=== PATIENT | female | born 1985 | race Caucasian/White ===

== ENCOUNTER 2019-09-06 13:56 | Observation (INO) | payer MEDICAID, SELFPAY | END 2019-09-07 09:50 | disposition left against medical advice (07) | PROVIDERS: Admitting Provider Obstetrics & Gynecology; Emergency Provider Family Medicine; Family Provider Nurse Practitioner; Visit Provider Obstetrics & Gynecology | DX: O20.0 Threatened abortion (principal); Z3A.13 13 weeks gestation of pregnancy; Z53.29 Procedure and treatment not carried out because of patient's decision for other reasons ==

== ENCOUNTER → 2019-09-13 09:51 | Outpatient (BNVA) | payer MEDICAID, SELFPAY | PROVIDERS: Family Provider Nurse Practitioner; PCP Nurse Practitioner; Visit Provider Social Worker Clinical | DX: F31.81 Bipolar II disorder (principal) | CPT/HCPCS: 90834; 90839 ==

== ENCOUNTER → 2019-09-23 09:17 | Outpatient (BNVA) | payer MEDICAID, SELFPAY | PROVIDERS: Family Provider Nurse Practitioner; PCP Nurse Practitioner; Visit Provider Nurse Practitioner Psychiatric/Mental Health | DX: F31.81 Bipolar II disorder (principal); F41.0 Panic disorder [episodic paroxysmal anxiety]; F17.210 Nicotine dependence, cigarettes, uncomplicated | CPT/HCPCS: 99214; 99215 ==

== ENCOUNTER → 2019-09-26 11:38 | Outpatient (BNVA) | payer MEDICAID, SELFPAY | PROVIDERS: Family Provider Nurse Practitioner; PCP Nurse Practitioner; Visit Provider Obstetrics & Gynecology | DX: O09.892 Supervision of other high risk pregnancies, second trimester (principal) | CPT/HCPCS: 81003; 84315 ==

== ENCOUNTER → 2019-10-25 08:40 | Outpatient (BNVA) | payer MEDICAID, SELFPAY | PROVIDERS: Family Provider Nurse Practitioner; PCP Nurse Practitioner; Visit Provider Obstetrics & Gynecology | DX: O09.892 Supervision of other high risk pregnancies, second trimester (principal); O21.9 Vomiting of pregnancy, unspecified; Z3A.21 21 weeks gestation of pregnancy | CPT/HCPCS: 76805 ==

== ENCOUNTER → 2019-10-28 09:37 | Outpatient (BNVA) | payer MEDICAID, SELFPAY | PROVIDERS: Family Provider Nurse Practitioner; PCP Nurse Practitioner; Visit Provider Obstetrics & Gynecology | DX: O09.892 Supervision of other high risk pregnancies, second trimester (principal); O21.9 Vomiting of pregnancy, unspecified; Z3A.21 21 weeks gestation of pregnancy | CPT/HCPCS: 81003 ==

== ENCOUNTER → 2019-11-05 10:23 | Outpatient (BNVA) | payer MEDICAID, SELFPAY | PROVIDERS: Family Provider Nurse Practitioner; PCP Nurse Practitioner; Visit Provider Internal Medicine Rheumatology | DX: L40.50 Arthropathic psoriasis, unspecified (principal); L40.0 Psoriasis vulgaris; Z3A.00 Weeks of gestation of pregnancy not specified; D72.829 Elevated white blood cell count, unspecified; F17.210 Nicotine dependence, cigarettes, uncomplicated | CPT/HCPCS: 99213 ==

== ENCOUNTER → 2019-11-15 08:00 | Outpatient (BNVA) | payer MEDICAID, SELFPAY | PROVIDERS: Family Provider Nurse Practitioner; PCP Nurse Practitioner; Visit Provider Counselor Professional | DX: F31.81 Bipolar II disorder (principal); F41.0 Panic disorder [episodic paroxysmal anxiety]; F17.210 Nicotine dependence, cigarettes, uncomplicated; O99.332 Smoking (tobacco) complicating pregnancy, second trimester; O99.342 Other mental disorders complicating pregnancy, second trimester | CPT/HCPCS: 90834 ==

== ENCOUNTER → 2019-11-19 13:06 | Outpatient (BNVA) | payer MEDICAID, SELFPAY | PROVIDERS: Family Provider Nurse Practitioner; PCP Nurse Practitioner; Visit Provider Obstetrics & Gynecology | DX: Z36.89 Encounter for other specified antenatal screening (principal); Z3A.23 23 weeks gestation of pregnancy; O32.1XX0 Maternal care for breech presentation, not applicable or unspecified | CPT/HCPCS: 76816 ==

== ENCOUNTER → 2019-11-22 13:49 | Outpatient (BNVA) | payer MEDICAID, SELFPAY | PROVIDERS: Family Provider Nurse Practitioner; PCP Nurse Practitioner; Visit Provider Obstetrics & Gynecology | DX: Z01.89 Encounter for other specified special examinations (principal) | CPT/HCPCS: 84315 ==

== ENCOUNTER → 2019-12-19 14:29 | Outpatient (BNVA) | payer MEDICAID, SELFPAY | PROVIDERS: Family Provider Nurse Practitioner; PCP Nurse Practitioner; Visit Provider Obstetrics & Gynecology Female Pelvic Medicine and Reconstructive Surgery | DX: Z01.89 Encounter for other specified special examinations (principal) | CPT/HCPCS: 84315 ==

== ENCOUNTER → 2020-01-13 07:32 | Outpatient (BNVA) | payer MEDICAID, SELFPAY | PROVIDERS: Family Provider Nurse Practitioner; PCP Nurse Practitioner; Visit Provider Nurse Practitioner Psychiatric/Mental Health | DX: F31.81 Bipolar II disorder (principal); F41.0 Panic disorder [episodic paroxysmal anxiety]; F17.210 Nicotine dependence, cigarettes, uncomplicated | CPT/HCPCS: 99213 ==

== ENCOUNTER → 2020-01-16 10:58 | Outpatient (BNVA) | payer MEDICAID, SELFPAY | PROVIDERS: Family Provider Nurse Practitioner; PCP Nurse Practitioner; Visit Provider Obstetrics & Gynecology | DX: O09.893 Supervision of other high risk pregnancies, third trimester (principal); O16.3 Unspecified maternal hypertension, third trimester; Z3A.33 33 weeks gestation of pregnancy | CPT/HCPCS: 76816; 76819; 84315 ==

== ENCOUNTER → 2020-01-17 07:33 | Outpatient (BNVA) | payer MEDICAID, SELFPAY | PROVIDERS: Family Provider Nurse Practitioner; Visit Provider Counselor Professional | DX: F31.81 Bipolar II disorder (principal); F41.0 Panic disorder [episodic paroxysmal anxiety]; O99.332 Smoking (tobacco) complicating pregnancy, second trimester; O99.342 Other mental disorders complicating pregnancy, second trimester | CPT/HCPCS: 90834 ==

== ENCOUNTER → 2020-01-22 10:14 | Outpatient (BNVA) | payer MEDICAID, SELFPAY | PROVIDERS: Family Provider Nurse Practitioner; Visit Provider Obstetrics & Gynecology | DX: O09.893 Supervision of other high risk pregnancies, third trimester (principal); O16.2 Unspecified maternal hypertension, second trimester; O09.512 Supervision of elderly primigravida, second trimester | CPT/HCPCS: 76816; 76819 ==

== ENCOUNTER 2020-01-22 18:04 | Inpatient (IN) | payer MEDICAID, SELFPAY ==
[2020-01-22] VITALS (65 sets, daily range): BP systolic 0–157; BP diastolic 0–112; PULSE 76–108; RESP 16; TEMP 36.4–36.9; O2SAT 94–98; BMI 43.5
[2020-01-22] MEDS: betamethasone susp 6 mg/mL 5 mL 12 MG IM (15:55)
[2020-01-22] MEDS: magnesium sulfate premix 4 GM/100 ML PREMIX IV (16:01)
[2020-01-22] MEDS: lactated ringers 1,000 ML 75 ML (16:01)
--- NOTE | 2020-01-22 16:22 | P.HP_ITS ---
Providers/Chief Complaint Admitting Physician: Wilton Hooker MD Primary ORACLE EBS CONSULTANT: Wilton Hooker MD Primary Care Provider: SERGEY Anthony Chief Complaint: OB TRIAGE HPI ORACLE EBS CONSULTANT History of Present Illness Elza Kang is a 34 year old female 1, para 0 with an LMP of 06/04/2019 and an EDC of 03/10/2020 based on LMP and consistent with 14-week ultrasound, which places her at 33-1/7 weeks gestation. Patient contacted the office this afternoon reporting possible leaking of fluid since 9:00 this morning. She states she has had trickles of fluid that she has been unable to control. This afternoon she started noticing some pink tinge to it when she wiped. She reports feeling contractions off and on, about every 5 to 7 minutes. She reports feeling movement. Labs 08/22/2019 Blood type: A positive. Antibody screen: Negative. Intake CBC: WBC 10.1, Hgb 13.3, Hct 39.0, MCV 88.8, Plt 384. Rubella: Immune (370). Hepatitis B surface antigen: Negative. Hepatitis C antibody: Negative. RPR: Nonreactive. HIV: Negative. Cystic fibrosis screen: Negative. Urine drug screen: Positive opiates (on hydrocodone from pain clinic). Urine culture: 10-20,000 CFU, mixed organisms. Panorama: Insufficient DNA. 08/30/2019 Gonorrhea: Negative. Chlamydia: Negative. Pap smear: (2018). Negative per patient. 09/02/2019 Panorama (redraw): Low risk. Male. fraction 3.9%. 09/26/2019 AFP only: Declined. 28 week GCT: Performed fingerstick glucose less than or equal to 95; 2-hour postprandial less than equal to 145 [Date] GBS: OB Ultrasound LMP 06/04/2019 ---> EDC 03/10/2020 1. 09/06/2019 ---> 14-1/7 WG ---> EDC 03/05/2020. Consistent with LMP. Performed at [facility]. FL 1.41 cm. FHR 171 bpm. 2. 10/25/2019 ---> 21-0/7 WG ---> EDC 03/06/2020. EFW 14 oz (393 g) 76%. Performed at [facility]. Consistent with dates. Normal anatomic survey EXCEPT for poor visualization of face and profile, heart views, cord insertion, and feet. Male. Cephalic. FHR 142 bpm. Left lateral placenta without previa. Grade 1. Visually normal amniotic fluid volume. [facility] OT 5.2 cm. Cervix 4.5 cm. 3. 11/19/2019 ---> 24-5/7 WG ---> EDC 03/05/2020. EFW 1 lb 10 oz (725 g) 73%. Performed at [facility]. Consistent with dates. Structures not adequately seen on prior ultrasound reported as normal today. Breech. FHR 150 bpm. Anterior, posterior, left lateral placenta without previa. Visually normal amniotic fluid volume. HOME HEALTH TRAVEL OT 4.1 cm. Cervix 3.7 cm. 4. 01/16/2020 ---> 33-1/7 WG ---> EDC 03/04/2020. EFW 4 pounds 13 ounces (2183 g) 74%. Performed at [facility]. Consistent with dates. Consistent with dates. Normal anatomic survey. Male. Cephalic. FHR 135 bpm. Anterior, fundal, left lateral placenta without previa. SHARON 12.6 cm. Review of Systems Const: Denies: fever(s) or chills ENMT: Denies: throat pain or nasal congestion Card: Denies: chest pain, palpitations or lightheadedness Resp: Denies: dyspnea, productive cough, non-productive cough or wheezing GI: Reports: abdominal pain (with contractions) and constipation; Denies: nausea, vomiting or diarrhea : Reports: urinary frequency and vaginal bleeding; Denies: dysuria, genital pruritis or vaginal discharge Neuro: Denies: headache(s), dizziness or seizure-like activity Psych: Reports: depression; Denies: anxiety Endo: Denies: polyuria, polydipsia, cold intolerance or hot flashes [place]/Lymph: Denies: easy bruising or easy bleeding Medications/Allergies Home Medications Medication Instructions Recorded Confirmed Last Taken Type cholecalciferol (vitamin D3) 25 1,000 unit PO BID cap 09/20/19 01/22/20 Unknown History mcg (1,000 unit) capsule multivitamin 1 tab PO QAM 09/20/19 01/22/20 Unknown History promethazine 25 mg tablet 25 mg PO QID PRN #60 tab 10/28/19 01/22/20 Unknown Rx cetirizine 10 mg tablet 10 mg PO DAILY tab 11/05/19 01/22/20 Unknown History diphenhydramine HCl 25 mg capsule 25 mg PO Q6H PRN cap 11/05/19 01/22/20 Unknown History ondansetron HCl 4 mg tablet 4 mg PO Q8H PRN #30 tab 12/19/19 01/22/20 Unknown Rx varenicline 0.5 mg (11)-1 mg (42) See Rx Instructions PO PER PKG DIR 12/19/19 0 01/22/20 Unknown Rx tablets in a dose pack #53 each acetaminophen 500 mg tablet 500 mg PO TID PRN tab 01/10/20 01/22/20 Unknown History hydrocodone 7.5 mg-acetaminophen 0.5 tab PO DAILY tab 01/10/20 01/22/20 Unknown History 325 mg tablet pyridoxine (vitamin B6) 25 mg 25 mg PO TID 01/22/20 01/22/20 Unknown History tablet Allergies Allergy/AdvReac Type Severity Reaction Status Date / Time albuterol [From ProAir HFA] Allergy Difficulty Verified 01/22/20 10:20 breathing sodium benzoate Allergy Swelling, Verified 01/22/20 10:20 migraine sulfamethoxazole Allergy Swelling Verified 01/22/20 10:20 [From Bactrim] topiramate [From Topamax] Allergy Muscle Verified 01/22/20 10:20 spasm trimethoprim [From Bactrim] Allergy Swelling Verified 01/22/20 10:20 PFSH ORACLE EBS CONSULTANT PFSH: Medical History Bipolar II disorder Dx in 2005. Medications [place] 300 mg twice per day and Lamictal 150 mg at bedtime Note: Patient reports unable to tolerate higher dosages of [place] and Lamictal Chronic back pain Cigarette nicotine dependence Leukocytosis, unspecified Long-term use of high-risk medication - Long-term narcotic use--currently on hydrocodone 7.5 mg taking 4-5 tablets per day. She is currently working with pain clinic to reduce her narcotic use. Continue management with pain clinic. 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 Treated with Benadryl and Zofran. Panic disorder Plaque psoriasis Followed by rheumatology. Tx with Xelaubrey before . 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 Family/Other Hypertension Paternal aunt, maternal uncle Stroke Paternal aunt, Maternal uncles x 2. Social History (Updated 01/22/20 @ 16:39 by Wilton Hooker MD) Smoking and tobacco status: current every day smoker cigarettes Packs smoked per day: 0.5 [ Other cigarette details: down from 1-1/2 packs daily; no vaping ] Alcohol intake: never Substance/Drug Use: never Additional social history: Well balanced diet Other Female Reproductive History: Hx Age of Menarche: 9 Duration of menses: other (3 days) Cycle Length: regular History History History 1 Term 0 Miscarriages/Ectopic 0 0 Living Children 0 Care CAMRYN Calculator Estimated Delivery Date Method Current WG Current Estimate 03/10/20 LMP (Certain) 33w 1d Other Estimates 03/05/20 Ultrasound #1 33w 6d 03/06/20 Ultrasound #2 33w 5d Expected Delivery Route/Plan Vaginal Specific Issues/Plans * Bipolar disorder * Psoriasis with arthritis * Migraine headaches * Chronic narcotic use * Smoker * Advanced maternal age (age 34 at delivery) * Obesity (prepregnancy 261 lb) * Mast cell activation syndrome OB Visit Log Initial Weight: 261 lb Date -?-?-?-?-?-?-?-?-?-?-?-?- EGA Weight BP Albumin -?-?-?-?-?-?-?-?-?-?-?-?- Glucose Nitrate -?-?-?-?-?-?-?-?-?-?-?-?- Blood Fun Ht PRES HR MVMT -?-?-?-?-?-?-?-?-?-?-?-?- Edema Dilation Effacement -?-?-?-?-?-?-?-?-?-?-?-?- Station 07/18/19 -?-?-?-?-?-?-?-?-?-?-?-?- 6w 2d 261 lb (+0 oz) 102/72 neg neg not examined 08/22/19 -?-?-?-?-?-?-?-?-?-?-?-?- 11w 2d 259 lb 4 oz (-1 lb 12 oz) 142/78 1+ neg Not detected not examined 08/30/19 -?-?-?-?-?-?-?-?-?-?-?-?- 12w 3d 258 lb 8 oz (-2 lb 8 oz) 132/80 neg neg 148 Closed Unef faced 09/25/19 -?-?-?-?-?-?-?-?-?-?-?-?- 16w 1d -?-?-?-?-?-?-?-?-?-?-?-?- -?-?-?-?-?-?-?-?-?-?-?-?- -?-?-?-?-?-?-?-?-?-?-?-?- -?-?-?-?-?-?-?-?-?-?-?-?- 09/26/19 -?-?-?-?-?-?-?-?-?-?-?-?- 16w 2d 260 lb (-16 oz) 128/72 Neg (Negative ) -?-?--?-?-?-?-?-?-?-?-?-?- Norm (Normal) Negative (Negat renate) -?-?-?-?-?-?-?-?-?-?-?-?- 142 -?-?-?-?-?-?-?-?-?-?-?-?- -?-?-?-?-?-?-?-?-?-?-?-?- 10/28/19 -?-?-?-?-?-?-?-?-?-?-?-?- 20w 6d 259 lb 2 oz (-1 lb 14 oz) 122/62 Neg (Negat renate) -?-?-?-?-?-?-?-?-?-?-?-?- Norm (Normal) Negative (Negat renate) -?-?-?-?-?-?-?-?-?-?-?-?- 139 active -?-?-?-?-?-?-?-?-?-?-?-?- absent -?-?-?-?-?-?-?-?-?-?-?-?- 11/22/19 -?-?-?-?-?-?-?-?-?-?-?-?- 24w 3d 263 lb (+2 lb) 128/80 1+ (Negative) H -?-?-?-?-?-?-?-?-?-?-?-?- Norm (Normal) Negative (Negat renate) -?-?-?-?-?-?-?-?-?-?-?-?- Neg (Negative) 25 156 act renate -?-?-?-?-?-?-?-?-?-?-?-?- absent -?-?-?-?-?-?-?-?-?-?-?-?- 12/19/19 -?-?-?-?-?-?-?-?-?-?-?-?- 28w 2d 264 lb 4 oz (+3 lb 4 oz) 134/76 1+ (Negativ e) H -?-?-?-?-?-?-?-?-?-?-?-?- Norm (Normal) Negative (Negat renate) -?-?-?-?-?-?-?-?-?-?-?-?- Neg (Negative) 30 Vertex 132 active -?-?-?-?-?-?-?-?-?-?-?-?- Absent Not examined -?-?-?-?-?-?-?-?-?-?-?-?- 01/02/20 -?-?-?-?-?-?-?-?-?-?-?-?- 30w 2d 267 lb 6 oz (+6 lb 6 oz) 122/70 Neg (Negati ve) -?-?-?-?-?-?-?-?-?-?-?-?- Norm (Normal) Negative (Negat renate) -?-?-?-?-?-?-?-?-?-?-?-?- Neg (Negative) 32 143 act renate -?-?-?-?-?-?-?-?-?-?-?-?- trace -?-?-?-?-?-?-?-?-?-?-?-?- 01/16/20 -?-?-?-?-?-?-?-?-?-?-?-?- 32w 2d 273 lb 2 oz (+12 lb 2 oz) 120/66 Neg (Negat renate) -?-?-?-?-?-?-?-?-?-?-?-?- Norm (Normal) Negative (Negat renate) -?-?-?-?-?-?-?-?-?-?-?-?- Neg (Negative) 35.5 134 act renate -?-?-?-?-?-?-?-?-?-?-?-?- Absent -?-?-?-?-?-?-?-?-?-?-?-?- 01/22/20 -?-?-?-?-?-?-?-?-?-?-?-?- 33w 1d 271 lb (+10 lb) 144/98 1+ (Negative) H -?-?-?-?-?-?-?-?-?-?-?-?- Norm (Normal) Negative (Negat renate) -?-?-?-?-?-?-?-?-?-?-?-?- 2+ (Negative) H 137 -?-?-?-?-?-?-?-?-?-?-?-?- -?-?-?-?-?-?-?-?-?-?-?-?- 01/22/20 -?-?-?-?-?-?-?-?-?-?-?-?- 33w 1d 112/71 0/0 135/62 136/65 138/65 147/62 131/57 132/63 0/0 154/64 0/0 150/67 132/64 0/0 0/0 145/67 0/0 -?-?-?-?-?-?-?-?-?-?-?-?- -?-?-?-?-?-?-?-?-?-?-?-?- -?-?-?-?-?-?-?-?-?-?-?-?- -?-?-?-?-?-?-?-?-?-?-?-?- Notes Visit Date: 01/22/20 No visit notes to display Visit Date: 01/22/20 No visit notes to display Visit Date: 01/16/20 No visit notes to display Visit Date: 01/02/20 No visit notes to display Visit Date: 12/19/19 Routine OB/high risk . Is of note the patient is doing quite well OB perspective. She has multiple medical issues probably contributing reasonably well-controlled. She would like to stop smoking she had previously been on Chantix and done well I will replace her on Chantix and with instructions to stop smoking again 2 weeks. At this time recommend follow-up in 4 weeks would recommend starting antepartum testing at 32 weeks. To advanced maternal age Kai Villalta DO on 12/19/19 Visit Date: 11/22/19 No visit notes to display Visit Date: 10/28/19 MARY JANE at 20-6/7 WG. Complained of worsening nausea and vomiting. Rx for Phenergan and patient encouraged to take vitamin B6. Screening ultrasound reviewed, consistent with dates. Incomplete anatomy screen (face, profile, heart views, cord insertion, and feet). Follow-up ultrasound at 24 to 26 weeks. Wilton Hooker MD on 11/01/19 Visit Date: 09/26/19 MARY JANE at 16-3/7 WG. AFP only testing declined. Normal blood pressure again today. Constipation discussed. Use of MiraLAX and stool softeners discussed. Ultrasound for anatomic survey in approximately 4 weeks. Wilton Hooker MD on 10/05/19 Visit Date: 09/25/19 Preload note Myrtle Norman RN on 09/25/19 Visit Date: 08/30/19 OB exam at 12-3/7 WG. ? labs reviewed. ?OB exam performed. ?Gonorrhea and Chlamydia testing today. ?Alternatives to early GCT testing discussed. ?Patient plans to do Accu-Cheks due to allergy to substance in glucose drink. ?Patient to monitor blood pressure at home. ?Blood pressure normal today. Visit Date: 08/22/19 Initial OB visit at 11-3/7 WG. ?Patient with multiple health problems as listed in her main note. ? labs drawn including HIV, CF, and Panorama. ?Needs scheduled for early GCT at next visit. ?Patient had elevated blood pressure noted today. ?This needs to be followed. ?OB exam in approximately one week. Visit Date: 07/18/19 OBI at 6.2 ?WG----------> 34 year old with LMP of 06/04/2019, with CAMRYN of 03/10/2020 - AMA; discussed and encouraged NIPT - Psoriatic arthritis; came off Xeljanz prior to conception; continue to see rheumatology for management - Chronic pain with narcotic use; using hydrocodone 7.5mg--> 4-5/day; sees pain clinic; she will be working on weaning. - Plaque psoriasis; she reports this started since the ; follow- up with rheumatology - Smoker; risk of nicotine use in discussed; cessation strongly encouraged - Bipolar disorder; managed by Manju Mcfarlane at [facility] -Ob packet provided. Reviewed routine vist schedule, labs, approved medications in , discussed the importance of avoiding nicotine/alcohol/drugs and the effects this has on her and the , and when to notify the doctor. Medical and obstetrical history reviewed. ? -Continue vitamins. - labs at next visit; discussed NIPT, QUAD, AFP, CF. Vitals/I&O/Wt Last Vital Signs Pulse 82 01/22/20 16:19 BP 147/62 01/22/20 16:19 Physical Exam Const: COMMON NORMALS: no acute distress, average body habitus, alert and well nourished GENERAL APPEARANCE: well developed ORIENTATION/CONSCIOUSNESS: Yes oriented to person, Yes oriented to place and Yes oriented to time Neck/C-Spine: COMMON NORMALS: Thyroid normal GENERAL: Yes trachea midline THYROID: Thyroid normal Resp: COMMON NORMALS: normal respiratory effort and clear to auscultation bilaterally AUSCULTATION: clear to auscultation bilaterally Cardio: COMMON NORMALS: regular rate, regular rhythm, No gallops present (Cardio), No murmurs present (Cardio) and No rub (Cardio) RATE: regular rate RHYTHM: regular rhythm GI: COMMON NORMALS: Soft to palpation, non-tender, No hepatosplenomegaly present and no masses AUSCULTATION: Yes normoactive bowel sounds PALPATION: Yes Soft to palpation, Yes No hepatosplenomegaly present and No He rnia present : EXTERNAL FEMALE EXAM: No Hernia present OTHER: External genitalia: Skin and hair damp in appearance. No lesions seen. Normal hair distribution. Anus/perineum: No perineal lesions noted. Urethral meatus: Normal in size and location with no lesions or prolapse noted Vagina: Pooling noted in vagina. No lesions noted. [place] discharge present. Cervix: No lesions noted. Fluid seen leaking from cervix. Fern testing performed. Uterus: Gravid, nontender on abdominal palpation. Extremity: COMMON NORMALS: no calf tenderness GENERAL: Yes edema (1+ lower extremity) Neuro: SENSORIUM/ORIENTATION: Yes alert, Yes oriented to person, Yes oriented to place and Yes oriented to time Psych: COMMON NORMALS: normal affect MOOD & AFFECT: Yes euthymic mood Skin: COMMON NORMALS: no rashes or lesions noted GENERAL SKIN EXAM: no rashes or lesions noted Data Other data: Fern Testing: Ferning identified. monitoring: heart rate in the 120s with moderate variability and accelerations present. No decelerations noted. Contractions occurring every 4 to 5 minutes. Bedside ultrasound: Confirmed cephalic presentation. A&P Assessment and plan (1) premature rupture of membranes: Status: Acute Qualifiers: PROM onset of labor timing: unspecified duration between rupture of membranes and onset of labor Qualified Code(s): O42.919 - premature rupture of membranes, unspecified as to length of time between rupture and onset of labor, unspecified trimester (2) labor in third trimester: Status: Acute (3) Mental disorder affecting : Status: Acute Qualifiers: Trimester: second trimester Qualified Code(s): O99.342 - Other mental disorders complicating , second trimester (4) Tobacco smoking affecting : Status: Acute Qualifiers: Trimester: second trimester Qualified Code(s): O99.332 - Smoking (tobacco) complicating , second trimester (5) Obesity affecting : Status: Acute Qualifiers: Trimester: second trimester Qualified Code(s): O99.212 - Obesity complicating , second trimester Additional A&P Information 1. PREMATURE RUPTURE OF MEMBRANES IN THIRD TRIMESTER Patient reports leaking fluid since 9 AM on 01/22/2020. Exam confirmed rupture of membranes based upon fluid seen leaking from the cervix and positive fern testing. Patient informed of the positive rupture of membranes. Patient has been given first dose of betamethasone 12 mg IM. She has also been started on ampicillin 2 g IV and 1 g oral azithromycin has been ordered. Patient was also started on magnesium sulfate for neuro protection. Discussed with patient that typically we recommend delivering in a tertiary care facility with NICU capabilities at this time in . However, she must be avtar infrequently, meaning not in labor, for her to be transferred. If transfer is possible, patient is requesting transfer to [facility]. 2. LABOR IN THIRD TRIMESTER Patient was reporting having contractions every 5 to 7 minutes prior to arrival. In L&D she has been having contractions every 4 to 5 minutes and appears to be very uncomfortable with them. At this point she is not stable for transfer. If contractions continue in this fashion, she will most likely be delivering locally. Research Agricultural Engineer will be notified of the situation. 3. MENTAL DISORDER (BIPOLAR DISORDER) AFFECTING IN THIRD TRIMESTER Patient previously diagnosed with bipolar disorder in 2005. Reports that she was taking Prozac, lithium, and Lamictal prior to finding out that she was . [facility] managed [facility]. States usually is seen at the [facility]. -Recommend starting medication at least the last month of the . Patient has been previously diagnosed with bipolar disorder. She is not on medications currently for this. She is being followed through [facility] and has been receiving psychotherapy. She is at risk for a flareup of her bipolar disorder following delivery.. 4. TOBACCO USE (SMOKER) COMPLICATING Prior to --1-1/2 pack per day 6 weeks--one pack per day 08/24/2019: Counseled regarding tobacco use in and risks to fetus. Recommended stopping smoking 12/19/2019: Patient started on Chantix by Dr. Villalta to assist with smoking cessation. Patient started Chantix on 12/19/2019 and an attempt to stop smoking. She states she has decreased her cigarette intake at this time. 5. CHRONIC NARCOTIC USE Patient is on [place] for chronic pain. She is followed through a pain clinic who is providing her medication. Reports has been working with her pain doctor in an attempt to decrease her pain medication use. -Due to her chronic narcotic use during the , baby is at increased risk for withdrawal symptoms following delivery. -Research Agricultural Engineer will need to be notified at delivery. -Plan to start testing at 32 weeks. Patient takes [place] 7.5/325 mg tablets daily due to chronic pain. Baby will need to be monitored after delivery for withdrawal from narcotics 6. ADVANCED MATERNAL AGE IN PRIMIGRAVIDA COMPLICATING Patient will be 34 years of age at the time of delivery. 08/24/2019: Counseled regarding NIPT and other screening due to increased risk of chromosomal abnormalities. Panorama: Low risk 7. OBESITY AFFECTING First visit 261 pounds, BMI 41.8. Recommended limiting weight gain to 15-20 pounds for the . Early DM testing - Could not due GCT due to allergy. Sugar testing at home normal. 8. PLAQUE PSORIASIS WITH POLYARTICULAR PSORIATIC ARTHRITIS Followed by rheumatology. 9. MIGRAINE HEADACHES Patient reports being diagnosed with migraine headaches. States these are mast- cell related headaches. Typically takes Benadryl and Zofran for them. 10. MAST CELL ACTIVATION SYNDROME Patient associates her headaches to this. Attestations Medical Necessity Statement*: Patient is an active labor with membranes ruptured Coding Level of Care Code Acute Metal Slitter for [facility] Fwd Diagnoses premature rupture of membranes O42.919 PROM onset of labor timing: unspecified duration between rupture of membranes and onset of labor labor in third trimester O60.03 Mental disorder affecting O99.342 Trimester: second trimester Tobacco smoking affecting O99.332 Trimester: second trimester Obesity affecting O99.212 Trimester: second trimester
[2020-01-22] MEDS: azithromycin 250 mg Tablet 1000 MG PO (16:28)
[2020-01-22] MEDS: magnesium sulfate premix 20 GM/500 ML BAG IV (16:30)
[2020-01-22] MEDS: ampicillin 2,000 MG in sodium chloride 0.9% (plus) 50 ML 100 MG IV (16:33)
[2020-01-22 17:18] LABS: Basophils # 0.1 10^3/uL (0.0-0.1); Basophils % 0.3 %; Eosinophils # 0.2 10^3/uL (0.0-0.8); Eosinophils % 1.4 %; Hematocrit 41.1 % (37.0-47.0); Hemoglobin 13.6 g/dL (11.5-15.3); Lymphocytes # 2.5 10^3/uL (0.8-4.8); Lymphocytes % 16.8 %; Mean Corpuscular HGB Conc 33.1 g/dL (30.0-36.0); Mean Corpuscular Hemoglobin 30.6 pg (28.0-34.0); Mean Corpuscular Volume 92.4 fL (81-99); Mean Platelet Volume 11.3 fL (7.4-10.4); Monocytes % 6.5 %; Neutrophils # 10.9 10^3/uL (1.8-7.7); Nucleated Red Blood Cells % 0 %; Platelet Count 298 10^3/cmm (130-400); Red Blood Count 4.45 10^6/uL (4.1-5.3); Red Cell Distribution Width 14.6 % (12.1-15.1); White Blood Count 14.7 10^3/uL (4.0-10.0)
--- NOTE | 2020-01-22 18:33 | P.ANESASSM_ITS ---
Pre-Anesthetic Assessment Pre-Anesthetic Assessment: Height/Weight: Height 1.68 m Pulse BP Pulse Ox 98 126/55 94 01/22/20 18:29 01/22/20 18:29 01/22/20 18:28 Preop Diagnosis: Labor Pain Proposed Procedure: DIXON Last Intake: 10:00 Social: Social History: Alcohol and No alcohol Packs per day: 5 cig/day Exam: Pre-Anes Outpt Exam: alert, oriented x 3, clear to auscultation bilaterally and regular rate & rhythm Airway: Submandibular: WNL Cervical ROM: WNL MP: 2 Dentition: False and Full History/ROS: No significant history except as noted and No significant complaints Pulmonary: Pulmonary: None reported CV/HEM: CV/HEM: None reported : : None reported Hepatic: Hepatic: None reported GI: GI: None reported Metabolic: Metabolic: Morbid obesity Musc/skel: Musc/skel: OA/DJD Neuropsych: Neuropsych: Anxiety, Bipolar and GARCIA Anesthetic Plan: ASA status: 2 Anesthesia: Anesthesia Evaluation and Regional (specify below) Risk of > 500 ml blood loss (7ml/kg in children): No Meds/Allergies Current Medications: Current Medications Generic Name Dose Route Start Last Admin Trade Name Freq PRN Reason Stop Dose Admin Betamethasone Acet /Betameth SodPhos 12 mg 01/22/20 15:45 01/22/20 15:55 Celestone Solusp an IM 01/23/20 15:46 12 mg Q24H UZMA Administration Ampicillin Sodium 2,000 mg/ 50 mls @ 100 mls/ hr 01/22/20 15:45 01/22/20 16:33 Sodium Chloride IV 100 mls/hr ONCE UZMA Administration Protocol PFS Anesthesia PFSH: Medical History Bipolar II disorder Dx in 2005. Medications [place] 300 mg twice per day and Lamictal 150 mg at bedtime Note: Patient reports unable to tolerate higher dosages of [place] and Lami ctal Chronic back pain Cigarette nicotine dependence Leukocytosis, unspecified Long-term use of high-risk medication - Long-term narcotic use--currently on hydrocodone 7.5 mg taking 4-5 tablets pe r day. She is currently working with pain clinic to reduce her narcotic use. Continue management with pain clinic. 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 Treated with Benadryl and Zofran. Panic disorder Plaque psoriasis Followed by rheumatology. Tx with Xeljanz before . 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 Family/Other Hypertension Paternal aunt, maternal uncle Stroke Paternal aunt, Maternal uncles x 2. Social History (Updated 01/22/20 @ 16:39 by Wilton Hooker MD) Smoking and tobacco status: current every day smoker cigarettes Packs smoked per day: 0.5 [ Other cigarette details: down from 1-1/2 packs daily; no vaping ] Alcohol intake: never Substance/Drug Use: never Additional social history: Well balanced diet Female Reproductive History: : 1 Data Anesthesia CBC & Chem 7: 01/22/20 15:50 Other Labs: Laboratory Results - last 48 hr 01/22/20 01/22/20 15:50 15:50 WBC 14.7 H RBC 4.45 Hgb 13.6 Hct 41.1 MCV 92.4 MCH 30.6 MCHC 33.1 RDW 14.6 Plt Count 298 MPV 11.3 H Neut % (Auto) 74.0 Lymph % (Auto) 16.8 [place] % (Auto) 6.5 Eos % (Auto) 1.4 Baso % (Auto) 0.3 Neut # (Auto) 10.9 H Lymph # (Auto) 2.5 [place] # (Auto) 1.0 H Eos # (Auto) 0.2 Baso # (Auto) 0.1 Nucleated RBC % (auto) 0 Nucleated RBCs # 0.0 Blood Type A Positive Rho(D) Type Positive Antibody Screen Negative Cardiac Studies: No Data to Display
--- NOTE | 2020-01-22 18:36 | ANES.PROC ---
Anesthesia Procedures Procedure/Date: 01/22/20 Epidural: Time Out Performed: Yes Consents Signed: Procedure Consent Consent: requested by attending/covering physician, from patient, risks and benefits reviewed and patient agrees to proceed Lumbar Level: L2-L3 Epidural position: sitting Epidural procedure: sterile prep of area, 1% lidocaine to numb the area, 18 g needle, neg for paresthesia, test dose given, 1.5% xylocaine 1:200k epi, 0.2% Ropivacaine bolus ml, placed PCEA, no systemic response, sterile dressing applied, L.U.D. no apparent complications and 0.2% Ropiavacaine @ mls/hr Additional Comments: Ropiv 0.2% 8cc and fentanyl 100 mcg bolus
[2020-01-22] MEDS: lactated ringers 1,000 ML 75 ML IV (18:48)
[2020-01-22] MEDS: ampicillin 1,000 MG in sodium chloride 0.9% (plus) 50 ML 100 MG IV (19:47)
--- NOTE | 2020-01-22 21:06 | PM.DELIVERY ---
Delivery Note: Date of delivery: January 22, 2020 Pre-delivery diagnoses: Return at 33 weeks. premature rupture of membranes Post-delivery diagnoses: Same as above Procedure: Spontaneous vaginal delivery Op report anesthesia: Epidural Delivering Physician: Erwin Hamilton M.D. Estimated blood loss (mL): 500 Delivery: The patient was noted to be complete and pushing, so was placed in the dorsal lithotomy position, prepped and draped in the usual sterile fashion for a vaginal delivery. Pt. Noted to have epidural anesthesia. At 2034 the patient delivered a viable 33 weeks male infant weighing 2035 g with scores of 8 and 9 at one and five minutes, respectively. The vertex was delivered spontaneously over Intact perineum. The patient was asked to push and the head delivered spontaneously in the FERNY position, over an intact perineum. A nuchal cord was checked and None noted. The anterior shoulder delivered easily and the posterior shoulder followed. The remainder of the infant was easily delivered and the oropharynx and nasopharynx was bulb suctioned. The was noted to have spontaneous cry and spontaneous movement of all four extremities. The cord was clamped x 2 and cut and noted to have 2 arteries and one vein. The was passed to the [facility] where the billing and quality technician and nursing personnel were in attendance. The placenta delivered intact Spontaneously and the uterus was explored. 20 units of Pitocin was placed in the IV bag to firm the uterus. Examination of the cervix and vaginal vault did not reveal any lacerations. A vaginal pack was then placed. Examination of the perineum showed First degree lacerations. The First degree laceration was repaired with 3-0 Vicryl in the normal fashion in a running non locking fashion to reapproximate the laceration in layers. The vaginal pack was then removed. The patient tolerated this procedure well, and recovered in L&D and her was taken to the nursery. All sponge and needle counts were correct. A&P Assessment and plan (1) premature rupture of membranes: Status: Acute Qualifiers: PROM onset of labor timing: unspecified duration between rupture of membranes and onset of labor Qualified Code(s): O42.919 - premature rupture of membranes, unspecified as to length of time between rupture and onset of labor, unspecified trimester (2) labor in third trimester: Status: Acute (3) Mental disorder affecting : Status: Acute Qualifiers: Trimester: second trimester Qualified Code(s): O99.342 - Other mental disorders complicating , second trimester (4) Tobacco smoking affecting : Status: Acute Qualifiers: Trimester: second trimester Qualified Code(s): O99.332 - Smoking (tobacco) complicating , second trimester (5) Obesity affecting : Status: Acute Qualifiers: Trimester: second trimester Qualified Code(s): O99.212 - Obesity complicating , second trimester Coding Level of Care Code Acute Casino Cashier Manager for Chg Fwd Diagnoses premature rupture of membranes O42.919 PROM onset of labor timing: unspecified duration between rupture of membranes and onset of labor labor in third trimester O60.03 Mental disorder affecting O99.342 Trimester: second trimester Tobacco smoking affecting O99.332 Trimester: second trimester Obesity affecting O99.212 Trimester: second trimester
[2020-01-22] MEDS: oxytocin 30 UNIT/500 ML BAG 600 UNIT IV (21:47)
[2020-01-22] MEDS: diphenhydrAMINE 25 mg Capsule 50 MG PO (21:47)
[2020-01-23] MEDS: HYDROcodone-acetaminophen 5-325 mg Tablet PO ×2 (00:55→05:02)
[2020-01-23 01:35] VITALS: BP 118/68; PULSE 83; RESP 14; O2SAT 98
[2020-01-23 02:35] VITALS: BP 115/73; PULSE 85; RESP 16; O2SAT 95
[2020-01-23] MEDS: diphenhydrAMINE 25 mg Capsule 50 MG PO ×2 (03:53→10:16)
[2020-01-23 03:55] VITALS: BP 111/68; PULSE 80; RESP 16; TEMP 36.9; O2SAT 96
[2020-01-23 05:31] VITALS: BP 93/56; PULSE 80; RESP 16; TEMP 36.9; O2SAT 95
[2020-01-23] MEDS: prenatal vitamin Capsule 1 CAP PO (08:31)
[2020-01-23 08:58] LABS: Hematocrit 39.4 % (37.0-47.0); Mean Corpuscular Hemoglobin 30.6 pg (28.0-34.0); Mean Corpuscular Volume 92.7 fL (81-99); Mean Platelet Volume 10.8 fL (7.4-10.4); Platelet Count 313 10^3/cmm (130-400); Red Blood Count 4.25 10^6/uL (4.1-5.3); Red Cell Distribution Width 14.8 % (12.1-15.1); White Blood Count 22.8 10^3/uL (4.0-10.0)
[2020-01-23 10:23] VITALS: BP 113/70; PULSE 87; RESP 18; TEMP 36.9; O2SAT 98
--- NOTE | 2020-01-23 12:06 | P.DS_ITS ---
Discharge Providers ODD JOB LABORER Date of Admission: 01/22/20 18:04 Date of Discharge: 01/23/20 Attending Provider at Admission: Wilton Hooker MD Attending Provider at Discharge: Erwin Hamilton M.D. Primary Care Provider: SERGEY Anthony Diagnoses at Discharge Discharge Diagnosis (1) premature rupture of membranes: Status: Acute Qualifiers: PROM onset of labor timing: unspecified duration between rupture of membranes and onset of labor Qualified Code(s): O42.919 - premature rupture of membranes, unspecified as to length of time between rupture and onset of labor, unspecified trimester (2) labor in third trimester: Status: Acute (3) Mental disorder affecting : Status: Acute Qualifiers: Trimester: second trimester Qualified Code(s): O99.342 - Other mental disorders complicating , second trimester (4) Tobacco smoking affecting : Status: Acute Qualifiers: Trimester: second trimester Qualified Code(s): O99.332 - Smoking (tobacco) complicating , second trimester (5) Obesity affecting : Status: Acute Qualifiers: Trimester: second trimester Qualified Code(s): O99.212 - Obesity complicating , second trimester Reason for Visit Reason for Visit: Reason For Visit: OB TRIAGE Hospital Course Hospital Course: 34-year-old female with an estimated gestational age of 33 weeks came to labor and delivery with suspected premature rupture of membranes and premature labor. premature Rupture of membrane was confirmed, and she was found to be in active labor she progressed to have a spontaneous vaginal delivery of a viable boy with a weight at 2035 g, Apgars 8/9. However the was transferred to [facility] requesting to be discharged to be with the infant. She is afebrile hemodynamically stable, ambulating without difficulty, tolerating diet well. Information Peripartum Data: Infant Delivery Method: Vaginal Physical Exam Narrative: EXAM NARRATIVE: GA; alert and oriented x 3 HEENT: normal Breasts: engorged Nipples - skin intact Lungs; clear to auscultation Heart: regular rhythm, no murmurs. Abd: Appropriately tender. BS+. Uterine fundus below umbilicus. No Fundal Tenderness. Perineum: normal lochia. Extremities: no edema, no cyanosis, no tenderness. Urinary Catheter Management^: Beal: Cath Placed During This Visit: yes, but has since been removed by the nurse Reason for Continuing Indwelling Catheter: Not indwelling catheter Urinary Catheter Date of Insertion: 01/22/20 Urinary Catheter Time of Insertion: 16:20 Date Urinary Catheter Removed: 01/22/20 Time Urinary Catheter Discontinued: 20:15 Discharge Data Data Completed and Pending: Pending at discharge Category Date Time Status Group B Streptoco ccus Culture Stat Lab 01/22/20 15:50 Received Labs from last 24 hours 01/23/20 01/22/20 01/22/20 08:35 15:50 15:50 WBC 22.8 H 14.7 H RBC 4.25 4.45 Hgb 13.0 13.6 Hct 39.4 41.1 MCV 92.7 92.4 MCH 30.6 30.6 MCHC 33.0 33.1 RDW 14.8 14.6 Plt Count 313 298 MPV 10.8 H 11.3 H Neut % (Auto) 74.0 Lymph % (Auto) 16.8 Mckenzie % (Auto) 6.5 Eos % (Auto) 1.4 Baso % (Auto) 0.3 Neut # (Auto) 10.9 H Lymph # (Auto) 2.5 Mckenzie # (Auto) 1.0 H Eos # (Auto) 0.2 Baso # (Auto) 0.1 Nucleated RBC % (a uto) 0 Nucleated RBCs # 0.0 Blood Type A Positive Rho(D) Type Positive Antibody Screen Negative Vitals: Last Vital Signs Temp 98.4 F 01/23/20 10:23 Pulse 87 01/23/20 10:23 Resp 18 01/23/20 10:23 BP 113/70 01/23/20 10:23 Pulse Ox 98 01/23/20 10:23 Discharge Plan Discharge Patient Disposition: Home, Self-Care Condition: Stable Prescriptions: Continued hydrocodone-acetaminophen 7.5-325 mg tablet 0.5 tab PO DAILY RF: 0 promethazine 25 mg tablet 25 mg PO QID PRN (Reason: nausea and vomiting) Qty: 60 RF: 6 cholecalciferol (vitamin D3) 1,000 unit capsule 1,000 unit PO BID RF: 0 multivitamin Tablet 1 tab PO QAM RF: 0 cetirizine [Zyrtec] 10 mg tablet 10 mg PO DAILY RF: 0 diphenhydramine HCl [Benadryl] 25 mg capsule 25 mg PO Q6H PRNRF: 0 acetaminophen [Tylenol Extra Strength] 500 mg tablet 500 mg PO TID PRNRF: 0 Chantix Starting Month Box 0.5 mg (11)- 1 mg (42) tablets,dose pack See Rx Instructions PO PER PKG DIR Qty: 53 RF: 0 ondansetron HCl [Zofran] 4 mg tablet 4 mg PO Q8H PRN (Reason: nausea and vomiting) Qty: 30 RF: 2 pyridoxine (vitamin B6) [Vitamin B-6] 25 mg tablet 25 mg PO TID RF: 0 Discharge Orders: Discharge Order (Routine); Ordered 01/23/20 Ordered By: Erwin Hamilton Referrals: Wilton Hooker MD [Physician] - 03/05/20 8:45 am Discharge Diet: Regular Discharge Activity: Increase activity as tolerated Patient Instructions: Bleeding (DC), OB Discharge Report, OB Food/Drug Interaction Guide, OB Vaginal Deliveries - [facility] Activity Restrictions/Additional Instructions: Pelvic rest for 6 weeks (no sex, no tampons, no vaginal douches). Return to the emergency room if any fever, increased bleeding or pain. Discharge Attestations ODD JOB LABORER Time Spent in Discharge Care*: greater than 30 min Specific Discharge Activities: Specific discharge activities: educating patient Time Spent in Smoking Cessation: Time spent discussing smoking cessation with patient: 3 to 10 minutes Details of Smoking Cessation Education: Patient informed about the available smoking cessation class at [facility] [place] Status at Discharge: Cognitive status at discharge: cognitively intact , Behavioral status at discharge: cooperative , Functional status at discharge: independent ambulation Overall status at discharge: patient is back to baseline Coding Level of Care Code Acute Email Engineer for Chg Fwd Diagnoses premature rupture of membranes O42.919 PROM onset of labor timing: unspecified duration between rupture of membranes and onset of labor labor in third trimester O60.03 Mental disorder affecting O99.342 Trimester: second trimester Tobacco smoking affecting O99.332 Trimester: second trimester Obesity affecting O99.212 Trimester: second trimester
[2020-01-23 12:24] VITALS: BP 106/67; PULSE 84; RESP 16; TEMP 37; O2SAT 96
== END 2020-01-23 13:20 | disposition home or self-care (01) | DRG 805 ==
LOC: OBGYN 01-23 09:13 → OPOB 01-23 10:33 → OBGYN 01-23 10:33
PROVIDERS: Obstetrics & Gynecology; Admitting Provider Obstetrics & Gynecology; PCP Nurse Practitioner; Visit Provider Obstetrics & Gynecology
DX: O42.913 Preterm premature rupture of membranes, unspecified as to length of time between rupture and onset of labor, third trimester (principal); O60.14X0 Preterm labor third trimester with preterm delivery third trimester, not applicable or unspecified; Z37.0 Single live birth; F31.81 Bipolar II disorder; Z3A.33 33 weeks gestation of pregnancy; O99.344 Other mental disorders complicating childbirth; O99.334 Smoking (tobacco) complicating childbirth; F17.210 Nicotine dependence, cigarettes, uncomplicated; O99.214 Obesity complicating childbirth; O70.0 First degree perineal laceration during delivery; O75.89 Other specified complications of labor and delivery; G89.29 Other chronic pain; M54.9 Dorsalgia, unspecified; D89.40 Mast cell activation, unspecified; G43.909 Migraine, unspecified, not intractable, without status migrainosus; F41.0 Panic disorder [episodic paroxysmal anxiety]; L40.0 Psoriasis vulgaris; L40.50 Arthropathic psoriasis, unspecified
CPT/HCPCS: 12345; 36415; 51702; 59409; 84315; 85025; 85027; 86850; 86900; 87081; 88307; 96372; 96374; 99211; J0290; J0702; J2795; J3010; J3475; Q0144

== ENCOUNTER → 2020-01-24 08:11 | Outpatient (BNVA) | payer MEDICAID, SELFPAY | PROVIDERS: PCP Nurse Practitioner; Visit Provider Counselor Professional | DX: F31.81 Bipolar II disorder (principal); F41.0 Panic disorder [episodic paroxysmal anxiety]; F17.210 Nicotine dependence, cigarettes, uncomplicated | CPT/HCPCS: 90834 ==

== ENCOUNTER → 2020-02-21 08:01 | Outpatient (BNVA) | payer MEDICAID, SELFPAY | PROVIDERS: PCP Nurse Practitioner; Visit Provider Nurse Practitioner Psychiatric/Mental Health | DX: F31.81 Bipolar II disorder (principal); F41.0 Panic disorder [episodic paroxysmal anxiety]; F17.210 Nicotine dependence, cigarettes, uncomplicated | CPT/HCPCS: 99214 ==

== ENCOUNTER → 2020-03-23 13:08 | Outpatient (BNVA) | payer MEDICAID, SELFPAY | PROVIDERS: PCP Nurse Practitioner; Visit Provider Internal Medicine Rheumatology | DX: L40.0 Psoriasis vulgaris (principal); L40.59 Other psoriatic arthropathy; F17.210 Nicotine dependence, cigarettes, uncomplicated; Z71.89 Other specified counseling; Z79.899 Other long term (current) drug therapy | CPT/HCPCS: 99214 ==

== ENCOUNTER → 2020-04-13 07:32 | Outpatient (BNVA) | payer MEDICAID, SELFPAY | PROVIDERS: PCP Nurse Practitioner; Visit Provider Nurse Practitioner Psychiatric/Mental Health | DX: F31.81 Bipolar II disorder (principal); F41.0 Panic disorder [episodic paroxysmal anxiety]; F17.210 Nicotine dependence, cigarettes, uncomplicated | CPT/HCPCS: 99213 ==

== ENCOUNTER → 2020-04-14 11:12 | Outpatient (BNVA) | payer MEDICAID, SELFPAY | PROVIDERS: PCP Nurse Practitioner; Visit Provider Counselor Professional | DX: F31.81 Bipolar II disorder (principal); F41.0 Panic disorder [episodic paroxysmal anxiety]; F17.210 Nicotine dependence, cigarettes, uncomplicated | CPT/HCPCS: 90834 ==

== ENCOUNTER → 2020-04-22 10:19 | Outpatient (BNVA) | payer MEDICAID, SELFPAY | PROVIDERS: PCP Nurse Practitioner; Visit Provider Counselor Professional | DX: F31.81 Bipolar II disorder (principal); F41.0 Panic disorder [episodic paroxysmal anxiety]; F17.210 Nicotine dependence, cigarettes, uncomplicated | CPT/HCPCS: 90834 ==

== ENCOUNTER → 2020-04-23 10:42 | Outpatient (BNVA) | payer MEDICAID, SELFPAY | PROVIDERS: PCP Nurse Practitioner; Visit Provider Internal Medicine Rheumatology | DX: Z79.899 Other long term (current) drug therapy (principal) | CPT/HCPCS: 36415; 80076; 82565; 85025; 85651; 86140 ==

== ENCOUNTER → 2020-05-12 09:13 | Outpatient (BNVA) | payer MEDICAID, SELFPAY | PROVIDERS: PCP Nurse Practitioner; Visit Provider Counselor Professional | DX: F31.81 Bipolar II disorder (principal); F41.0 Panic disorder [episodic paroxysmal anxiety]; F17.210 Nicotine dependence, cigarettes, uncomplicated | CPT/HCPCS: 90834 ==

== ENCOUNTER 2020-05-15 07:57 | Outpatient (CLI) | payer MEDICAID, SELFPAY ==
--- NOTE | 2020-05-15 08:00 | XR_ITS ---
WS: [id number] TECHNIQUE: 2 views of the left hand CLINICAL INFORMATION: psoriatic arthritis COMPARISON: None. FINDINGS: Normal metacarpals. Normal MCP joint. Metacarpal heads are normal in appearance. Normal PIP and DIP j oints. Ulna minus variance No evidence of acute fracture or dislocation. Radiocarpal joint: Normal. Carpal bones: Normal. XR/XR hand LT 2V [id number] IMPRESSION: Ulna minus variance. No significant erosive changes.
--- NOTE | 2020-05-15 08:30 | XR_ITS ---
WS: [id number] TECHNIQUE: 2 views of the right hand CLINICAL INFORMATION: psoriatic arthritis COMPARISON: None. FINDINGS: Normal metacarpals. Normal MCP joint. Metacarpal heads are normal in appearance. Normal PIP and DIP j oints. Ulna minus variance. No evidence of acute fracture or dislocation. Radiocarpal joint: Normal. Carpal bones: Normal. XR/XR hand RT 2V [id number] IMPRESSION: Ulna minus variance. No significant erosive changes.
--- NOTE | 2020-05-15 09:00 | XR_ITS ---
WS: [id number] FOOT LEFT TECHNIQUE: 2 views of the left foot CLINICAL INFORMATION: psoriatic arthritis COMPARISON: None. FINDINGS: No evidence of acute fracture or dislocation. Normal tarsal metatarsal alignment. Normal calcaneus. N ormal visualized talar dome. No acute findings. XR/XR foot LT 2V [id number] IMPRESSION: Normal left foot.
--- NOTE | 2020-05-15 09:15 | XR_ITS ---
WS: [id number] FOOT RIGHT TECHNIQUE: 2 views of the right foot CLINICAL INFORMATION: psoriatic arthritis COMPARISON: None. FINDINGS: No evidence of acute fracture or dislocation. Normal tarsal metatarsal alignment. Normal calcaneus. N ormal visualized talar dome. No acute findings. XR/XR foot RT 2V [id number] IMPRESSION: Normal right foot.
== END 2020-05-15 07:58 | disposition home or self-care (01) ==
LOC: RADWPI 08:00
PROVIDERS: Family Provider Nurse Practitioner; PCP Nurse Practitioner; Visit Provider Internal Medicine Rheumatology
DX: L40.50 Arthropathic psoriasis, unspecified (principal)
CPT/HCPCS: 73120; 73620

== ENCOUNTER → 2020-05-21 08:39 | Outpatient (BNVA) | payer MEDICAID, SELFPAY | PROVIDERS: PCP Nurse Practitioner; Visit Provider Counselor Professional | DX: F31.81 Bipolar II disorder (principal); F41.0 Panic disorder [episodic paroxysmal anxiety]; F17.210 Nicotine dependence, cigarettes, uncomplicated | CPT/HCPCS: 90834 ==

== ENCOUNTER → 2020-06-04 07:56 | Outpatient (BNVA) | payer MEDICAID, SELFPAY | PROVIDERS: PCP Nurse Practitioner; Visit Provider Counselor Professional | DX: F31.89 Other bipolar disorder (principal); F41.0 Panic disorder [episodic paroxysmal anxiety]; F17.210 Nicotine dependence, cigarettes, uncomplicated | CPT/HCPCS: 90834 ==

== ENCOUNTER → 2020-06-19 08:22 | Outpatient (BNVA) | payer MEDICAID, SELFPAY | PROVIDERS: PCP Nurse Practitioner; Visit Provider Counselor Professional | DX: F31.81 Bipolar II disorder (principal); F41.0 Panic disorder [episodic paroxysmal anxiety]; F17.210 Nicotine dependence, cigarettes, uncomplicated | CPT/HCPCS: 90834 ==

== ENCOUNTER → 2020-07-03 09:57 | Outpatient (BNVA) | payer MEDICAID, SELFPAY | PROVIDERS: PCP Nurse Practitioner; Visit Provider Internal Medicine Rheumatology | DX: L40.59 Other psoriatic arthropathy (principal); Z79.899 Other long term (current) drug therapy; M19.90 Unspecified osteoarthritis, unspecified site | CPT/HCPCS: 36415; 80076; 82565; 85025; 85651; 86140 ==

== ENCOUNTER → 2020-07-06 07:37 | Outpatient (BNVA) | payer MEDICAID, SELFPAY | PROVIDERS: PCP Nurse Practitioner; Visit Provider Nurse Practitioner Psychiatric/Mental Health | DX: F31.81 Bipolar II disorder (principal); F41.0 Panic disorder [episodic paroxysmal anxiety]; F17.210 Nicotine dependence, cigarettes, uncomplicated | CPT/HCPCS: 99214 ==

== ENCOUNTER → 2020-07-08 08:11 | Outpatient (BNVA) | payer MEDICAID, SELFPAY | PROVIDERS: PCP Nurse Practitioner; Visit Provider Counselor Professional | DX: F31.81 Bipolar II disorder (principal); F41.0 Panic disorder [episodic paroxysmal anxiety]; F17.210 Nicotine dependence, cigarettes, uncomplicated | CPT/HCPCS: 90834 ==

== ENCOUNTER → 2020-07-09 11:56 | Outpatient (BNVA) | payer MEDICAID, SELFPAY | PROVIDERS: PCP Nurse Practitioner; Visit Provider Internal Medicine Rheumatology | DX: L40.59 Other psoriatic arthropathy (principal); L40.0 Psoriasis vulgaris; F17.210 Nicotine dependence, cigarettes, uncomplicated; M47.816 Spondylosis without myelopathy or radiculopathy, lumbar region; Z79.899 Other long term (current) drug therapy; Z51.81 Encounter for therapeutic drug level monitoring | CPT/HCPCS: 99214 ==

== ENCOUNTER 2020-07-13 02:51 | Emergency (ER) | payer MEDICAID, SELFPAY ==
[2020-07-13 03:01] VITALS: BP 136/82; PULSE 77; RESP 20; TEMP 36.1; O2SAT 96; BMI 45.1
[2020-07-13] MEDS: sodium chloride 0.9% 500 ML IV (03:18)
[2020-07-13] MEDS: ondansetron 2 mg/ML SDV 2 mL 4 MG IVP (03:20)
[2020-07-13] MEDS: ketorolac 30 mg/mL INJ IVP (03:25)
[2020-07-13] MEDS: diphenhydrAMINE 50 mg/mL SDV 1mL 25 MG IVP (03:35)
[2020-07-13 03:45] VITALS: RESP 22
[2020-07-13] MEDS: fentaNYL 50 mcg/mL INJ 2mL 100 MCG IVP (03:45)
[2020-07-13 03:51] VITALS: BP 117/48; PULSE 70; RESP 16; O2SAT 98
--- NOTE | 2020-07-13 05:30 | ED_ITS ---
HPI - Headache General: Chief Complaint: Headache Stated Complaint: migraine Time Seen by Provider: 07/13/20 03:15 History of Present Illness: HPI Narrative: 35-year-old female with a history of migraine headaches. She notes that she started getting a migraine around 4 PM yesterday, took some medication at home, with no improvement. She started to vomit early this morning and presents to the ER vomiting with a headache. No fever. No diarrhea. No belly pain. MD elicited complaint: headache and migraine Onset (ago): hour(s) Onset description: gradually Location: generalized Severity: severe Quality & Timing: aching and throbbing Exacerbating factors: movement of head/neck and light Relieving factors: nothing Context: occurred at rest Associated symptoms: Reports nausea and vomiting; Deny chest pain, confusion, eye pain, eye redness, fever(s), neck stiffness, numbness, rash or weakness Treatments prior to arrival: antiemetic Review of Systems Const: Denies: fever(s) Card: Denies: chest pain GI: Reports: nausea and vomiting Skin/Breast: Denies: rash Neuro: Denies: confusion PFSH ED PFSH: Medical History (Updated 07/13/20 @ 05:25 by Hugo Pina DO) Bipolar II disorder Dx in 2005. Medications [place] 300 mg twice per day and Lamictal 150 mg at bedtime Note: Patient reports unable to tolerate higher dosages of [place] and Lamictal Chronic back pain Cigarette nicotine dependence High risk medication use Immunization counseling Leukocytosis, unspecified Long-term use of high-risk medication - Long-term narcotic use--currently on hydrocodone 7.5 mg taking 4-5 tablets per day. She is currently working with pain clinic to reduce her narcotic use. Continue management with pain clinic. 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 Treated with Benadryl and Zofran. 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 Family/Other Hypertension Paternal aunt, maternal uncle Stroke Paternal aunt, Maternal uncles x 2. Social History Smoking and tobacco status: current every day smoker cigarettes Packs smoked per day: 0.5 [ Other cigarette details: down from 1-1/2 packs daily; no vaping ] Alcohol intake: never Additional social history: Well balanced diet Female Reproductive History: Date of last menstrual period: 06/19/20 Physical Exam Const: GENERAL APPEARANCE: well developed ORIENTATION/CONSCIOUSNESS: Yes oriented to person, Yes oriented to place and Yes oriented to time HENMT: COMMON NORMALS: normocephalic, external ears normal and Normal external nose present HEAD & SCALP: normocephalic; no scalp tenderness NOSE: Normal external nose present and No nasal discharge present EXTERNAL EAR: Yes external ears normal Eye: COMMON NORMALS: Equal, round and reactive pupils present, EOMs intact bilaterally and conjunctivae normal EYELID: eyelids normal CONJUNCTIVA: Yes conjunctivae normal PUPIL: Yes Equal, round and reactive pupils present Neck/C-Spine: GENERAL: No tracheal deviation Chest: COMMONS NORMALS: normal inspection of the chest CHEST: No tenderness Resp: COMMON NORMALS: clear to auscultation bilaterally EFFORT & INSPECTION: No tachypneic, No respiratory distress, No retractions, No uses accessory muscles and No tracheal deviation AUSCULTATION: clear to auscultation bilaterally, no rhonchi, no wheezes and lung sounds not diminished Cardio: COMMON NORMALS: regular rate and regular rhythm RATE: regular rate RHYTHM: regular rhythm HEART SOUNDS: no murmurs PERIPHERAL PULSES: radial pulses present GI: INSPECTION: No abdominal distension AUSCULTATION: No Hyperactive bowel sounds present and No Hypoactive bowel sounds present PALPATION: No Guarding due to palpation present (GI) and No Rigid due to palpation PERCUSSION: no dullness to percussion and no tympanic to percussion Neuro: SENSORIUM/ORIENTATION: Yes oriented to person, Yes oriented to place and Yes oriented to time COORDINATION/BALANCE: [id number] test normal and ihcp-[id number] test normal SPEECH: speech normal SENSORY EXAM: Yes extremities MOTOR EXAM: Pronator motor function not present COORDINATION: [id number]-[id number] test normal and gvmg-by-snve test normal Psych: COMMON NORMALS: mental status grossly normal Skin: COMMON NORMALS: no rashes or lesions noted GENERAL SKIN EXAM: no rashes or lesions noted Course Vital Signs: Vital signs: Vital Signs Temperature 97.0 F L 07/13/20 03:01 Pulse Rate 70 07/13/20 03:51 Respiratory Rate 16 07/13/20 03:51 Blood Pressure 117/48 07/13/20 03:51 Pulse Oximetry 98 07/13/20 03:51 MDM - Headache MDM Narrative: Medical decision making narrative: Significant improvement in her symptoms. She is rested. Vomiting is stopped. She will be allowed home. Discharge Plan Discharge Patient Disposition: Home Clinical Impression: Migraine Qualifiers: Migraine type: unspecified Status migrainosus presence: without status migrainosus Condition: Stable Prescriptions: No Action hydrocodone-acetaminophen 7.5-325 mg tablet 0.5 tab PO DAILY RF: 0 promethazine 25 mg tablet 25 mg PO QID PRN (Reason: nausea and vomiting) Qty: 60 RF: 6 cholecalciferol (vitamin D3) 1,000 unit capsule 1,000 unit PO BID RF: 0 multivitamin Tablet 1 tab PO QAM RF: 0 folic acid 1 mg tablet 1 mg PO DAILY Qty: 30 RF: 3 lamotrigine [Lamictal Starter (Ravalli) Kit] 25 mg (42) -100 mg (7) tablets,dose pack See Rx Instructions PO PER PKG DIR Qty: 49 RF: 0 fluoxetine [Prozac] 20 mg capsule 20 mg PO .morning Qty: 30 RF: 4 lithium carbonate 300 mg capsule 300 mg PO BID Qty: 60 RF: 4 diphenhydramine HCl [Benadryl] 25 mg capsule 25 mg PO Q6H PRNRF: 0 ondansetron HCl [Zofran] 4 mg tablet 4 mg PO Q8H PRN (Reason: nausea and vomiting) Qty: 30 RF: 2 diclofenac sodium 75 mg tablet,delayed release (DR/EC) 75 mg PO BID Qty: 60 RF: 3 leflunomide 10 mg tablet See Rx Instructions PO DAILY Qty: 60 RF: 3 Xeljanz XR 11 mg tablet extended release 24 hr 11 mg PO DAILY Qty: 30 RF: 3 Discharge Orders: Discharge Order (Routine); Ordered 07/13/20 Ordered By: Hugo Pina Referrals: Aure Palma FNP [Primary Care Provider] - 4-7 days Discharge Diet: Advance as tolerated Discharge Activity: Increase activity as tolerated Patient Instructions: Migraine Headache (ED), Acute Headache (ED) Coding Level of Care Code ED Fur Glazer for Terry Pedroza
--- NOTE | 2020-07-13 05:30 | PC.NURSE ---
during pt rounding, pt states pain and nausea now resolved. notified
[2020-07-13 05:31] VITALS: BP 110/45; PULSE 74; RESP 16; O2SAT 97
[2020-07-13 05:48] VITALS: BP 110/65; PULSE 80; RESP 18; O2SAT 97
== END 2020-07-13 05:49 | disposition home or self-care (01) ==
PROVIDERS: Emergency Provider Emergency Medicine; PCP Nurse Practitioner
DX: G43.909 Migraine, unspecified, not intractable, without status migrainosus (principal); F17.210 Nicotine dependence, cigarettes, uncomplicated
CPT/HCPCS: 12345; 96361; 96374; 96375; 99282; 99283; J1200; J1885; J2405; J2930; J3010; J7040

== ENCOUNTER → 2020-07-20 08:19 | Outpatient (BNVA) | payer MEDICAID, SELFPAY | PROVIDERS: PCP Nurse Practitioner; Visit Provider Counselor Professional | DX: F41.0 Panic disorder [episodic paroxysmal anxiety] (principal); F31.81 Bipolar II disorder; F17.210 Nicotine dependence, cigarettes, uncomplicated | CPT/HCPCS: 90834 ==

== ENCOUNTER → 2020-07-30 10:23 | Outpatient (BNVA) | payer MEDICAID, SELFPAY | PROVIDERS: PCP Nurse Practitioner Family; Visit Provider Internal Medicine Rheumatology | DX: Z79.899 Other long term (current) drug therapy (principal) | CPT/HCPCS: 36415; 80076; 82565; 85025; 85651; 86140 ==

== ENCOUNTER → 2020-08-03 07:35 | Outpatient (BNVA) | payer MEDICAID, SELFPAY | PROVIDERS: PCP Nurse Practitioner Family; Visit Provider Nurse Practitioner Psychiatric/Mental Health | DX: F31.81 Bipolar II disorder (principal); F41.0 Panic disorder [episodic paroxysmal anxiety]; F17.210 Nicotine dependence, cigarettes, uncomplicated; F41.1 Generalized anxiety disorder | CPT/HCPCS: 99213 ==

== ENCOUNTER → 2020-08-04 08:07 | Outpatient (BNVA) | payer MEDICAID, SELFPAY | PROVIDERS: PCP Nurse Practitioner Family; Visit Provider Counselor Professional | DX: F31.81 Bipolar II disorder (principal); F41.0 Panic disorder [episodic paroxysmal anxiety]; F17.210 Nicotine dependence, cigarettes, uncomplicated | CPT/HCPCS: 90834 ==

== ENCOUNTER → 2020-08-24 08:07 | Outpatient (BNVA) | payer MEDICAID, SELFPAY | PROVIDERS: PCP Nurse Practitioner Family; Visit Provider Counselor Professional | DX: F31.81 Bipolar II disorder (principal); F41.0 Panic disorder [episodic paroxysmal anxiety]; F17.210 Nicotine dependence, cigarettes, uncomplicated | CPT/HCPCS: 90834 ==

== ENCOUNTER 2020-09-21 23:34 | Emergency (ER) | payer MEDICAID, SELFPAY ==
[2020-09-21 23:47] VITALS: BP 127/99; PULSE 88; RESP 18; TEMP 36.4; O2SAT 94; BMI 45.1
--- NOTE | 2020-09-22 | ED_ITS ---
HPI - Headache General: Chief Complaint: Headache Stated Complaint: migraine Time Seen by Provider: 09/21/20 23:52 History of Present Illness: HPI Narrative: Patient states he has had a migraine since this morning her medication she normally takes does not help with this. MD elicited complaint: migraine Pertinent past history: migraines Onset (ago): hour(s) Onset description: gradually Location: diffuse Severity: moderate Quality & Timing: aching and throbbing Exacerbating factors: light and noise Relieving factors: dark room and vomiting Context: occurred at rest Associated symptoms: Reports vomiting; Deny chest pain, fever(s) or rash Review of Systems Const: Denies: fever(s), chills or body aches Eyes: Denies: change in vision or blurry vision ENMT: Denies: throat pain or nasal congestion Card: Denies: chest pain or dyspnea on exertion Resp: Denies: dyspnea, productive cough or non-productive cough GI: Reports: vomiting Musc: Denies: extremity pain Skin/Breast: Denies: rash Neuro: Reports: headache(s) Psych: Denies: anxiety or depression Spencer/Lymph: Denies: easy bruising PFSH ED PFSH: Medical History (Updated 07/21/20 @ 00:00 by ) Bipolar II disorder Dx in 2005. Medications [place] 300 mg twice per day and Lamictal 150 mg at bedtime Note: Patient reports unable to tolerate higher dosages of [place] and Lamictal Chronic back pain Cigarette nicotine dependence High risk medication use Immunization counseling Leukocytosis, unspecified Long-term use of high-risk medication - Long-term narcotic use--currently on hydrocodone 7.5 mg taking 4-5 tablets per day. She is currently working with pain clinic to reduce her narcotic use. Continue management with pain clinic. 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 Treated with Benadryl and Zofran. 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 Family/Other Hypertension Paternal aunt, maternal uncle Stroke Paternal aunt, Maternal uncles x 2. Social History Smoking and tobacco status: current every day smoker cigarettes Packs smoked per day: 0.5 [ Other cigarette details: down from 1-1/2 packs daily; no vaping ] Alcohol intake: never Additional social history: Well balanced diet Female Reproductive History: Date of last menstrual period: 08/19/20 Physical Exam Const: COMMON NORMALS: no acute distress, average body habitus and patient oriented x3 HENMT: COMMON NORMALS: normocephalic HEAD & SCALP: normal to inspection and normocephalic FACE & SINUS: normal facial exam Eye: COMMON NORMALS: conjunctivae normal GENERAL EYE: appearance normal, both eyes and all related structures CONJUNCTIVA: Yes conjunctivae normal Neck/C-Spine: COMMON NORMALS: no JVD Chest: COMMONS NORMALS: normal inspection of the chest Resp: COMMON NORMALS: normal respiratory effort and clear to auscultation bilaterally AUSCULTATION: clear to auscultation bilaterally Cardio: COMMON NORMALS: no JVD, regular rate and regular rhythm RATE: re gular rate RHYTHM: regular rhythm GI: COMMON NORMALS: Normal to inspection, nondistended, normoactive bowel sounds present Extremity: COMMON NORMALS: normal to inspection and full ROM Neuro: COMMON NORMALS: patient oriented x3 Course Vital Signs: Vital signs: Vital Signs Temperature 97.6 F 09/21/20 23:47 Pulse Rate 88 09/21/20 23:47 Respiratory Rate 18 09/21/20 23:47 Blood Pressure 127/99 09/21/20 23:47 Pulse Oximetry 94 09/21/20 23:47 Discharge Plan Discharge Prescriptions: No Action hydrocodone-acetaminophen 7.5-325 mg tablet 0.5 tab PO DAILY RF: 0 promethazine 25 mg tablet 25 mg PO QID PRN (Reason: nausea and vomiting) Qty: 60 RF: 6 cholecalciferol (vitamin D3) 1,000 unit capsule 1,000 unit PO BID RF: 0 multivitamin Tablet 1 tab PO QAM RF: 0 folic acid 1 mg tablet 1 mg PO DAILY Qty: 30 RF: 3 fluoxetine [Prozac] 20 mg capsule 20 mg PO .morning Qty: 30 RF: 4 lithium carbonate 300 mg capsule 300 mg PO BID Qty: 60 RF: 4 lamotrigine [Lamictal] 100 mg tablet 100 mg PO .bedtime Qty: 30 RF: 4 diphenhydramine HCl [Benadryl] 25 mg capsule 25 mg PO Q6H PRNRF: 0 ondansetron HCl [Zofran] 4 mg tablet 4 mg PO Q8H PRN (Reason: nausea and vomiting) Qty: 30 RF: 2 diclofenac sodium 75 mg tablet,delayed release (DR/EC) 75 mg PO BID Qty: 60 RF: 3 Xeljanz XR 11 mg tablet extended release 24 hr 11 mg PO DAILY Qty: 30 RF: 3 [place] Starter 10 mg (4)-20 mg (4)-30 mg (47) tablets,dose pack See Rx Instructions PO PER PKG DIR Qty: 55 RF: 0 Coding Level of Care Code ED Portal Developer for Chg Yovany
[2020-09-22] MEDS: ketorolac 30 mg/mL INJ IVP (01:00)
[2020-09-22] MEDS: ondansetron 2 mg/ML SDV 2 mL 8 MG IVP (01:03)
[2020-09-22] MEDS: diphenhydrAMINE 50 mg/mL SDV 1mL IVP (01:03)
[2020-09-22] MEDS: sodium chloride 0.9% 1,000 ML 999 ML IV (01:03)
[2020-09-22 01:21] VITALS: BP 145/83; PULSE 82; RESP 17; O2SAT 98
[2020-09-22 02:01] VITALS: BP 122/67; PULSE 75; RESP 17; TEMP 36.6; O2SAT 97
== END 2020-09-22 02:01 | disposition home or self-care (01) ==
PROVIDERS: Emergency Provider Nurse Practitioner Family; PCP Nurse Practitioner Family
DX: R51.9 Headache, unspecified (principal); F17.210 Nicotine dependence, cigarettes, uncomplicated
CPT/HCPCS: 12345; 96361; 96374; 96375; 99283; J1200; J1885; J2405; J7030

== ENCOUNTER → 2020-10-12 10:51 | Outpatient (BNVA) | payer MEDICAID, SELFPAY | PROVIDERS: PCP Nurse Practitioner Family; Visit Provider Internal Medicine Rheumatology | DX: Z79.899 Other long term (current) drug therapy (principal) | CPT/HCPCS: 36415; 80076; 82565; 85025; 85651 ==

== ENCOUNTER → 2020-11-12 07:57 | Outpatient (BNVA) | payer MEDICAID, SELFPAY | PROVIDERS: PCP Nurse Practitioner Family; Visit Provider Nurse Practitioner Psychiatric/Mental Health | DX: F31.81 Bipolar II disorder (principal); F41.0 Panic disorder [episodic paroxysmal anxiety] | CPT/HCPCS: 99214 ==

== ENCOUNTER 2020-11-21 09:30 | Emergency (ER) | payer MEDICAID, SELFPAY ==
[2020-11-21 09:33] VITALS: BP 162/89; PULSE 88; RESP 15; TEMP 37; O2SAT 96; BMI 46.7
[2020-11-21 09:38] VITALS: RESP 18
--- NOTE | 2020-11-21 10:00 | W.ED.GENADLT ---
HPI - General Adult General: Chief complaint: General Medical Stated complaint: pseudo seizure/convulsion Time Seen by Provider: 11/21/20 09:41 History of Present Illness: HPI narrative: Patient arrived via ambulance with complaints of possible muscle contraction seizure-like activity. Patient's history is significant for depression migraines and psoriatic arthritis. She started new medication 2 weeks ago called [facility] for her psoriatic arthritis. States today that felt like she had spasms in her back and down her legs and felt like her back was arching forward and backwards and she had electric shocks going through her muscles. She is aware the whole time while this was going on she said her mom time did last for about 2 minutes. She is able to get up and ambulate afterwards no postictal state. Then she had an episode after she arrived here where she said she is having a seizure in the middle of her seizure where her legs were spasming. She denies any other problems presently denies any illnesses MD complaint: Muscle spasms Onset (ago): hour(s) Location: back and lower extremity Severity: moderate Severity scale (1-10): 4 Pain Consistency: intermittent Relieving factors: none Exacerbating factors: none Associated symptoms: Reports no associated symptoms; Deny chest pain, dyspnea, headache(s), nausea, rash or vomiting Treatments prior to arrival: none Review of Systems Narrative: Patient described her symptoms as a seizure in her words but then she describes muscle spasms in her back and her leg is the primary symptom that she has had Const: Denies: fever(s), chills or body aches Eyes: Denies: change in vision or blurry vision ENMT: Denies: throat pain or nasal congestion Card: Denies: chest pain or dyspnea on exertion Resp: Denies: dyspnea, productive cough or non-productive cough GI: Denies: abdominal pain, nausea or vomiting Musc: Reports: muscle cramps; Denies: extremity pain Skin/Breast: Denies: rash Neuro: Reports: numbness in extremities, weakness in extremities, sensory changes (Electric-like shocks in her back and legs) and restless legs; Denies: headache(s), Slurred speech present, difficulty communicating thoughts or seizure-like activity Psych: Reports: anxiety; Denies: depression [place]/Lymph: Denies: easy bruising [facility] ED PFSH: Medical History (Updated 11/21/20 @ 11:21 by SERGEY Shah) Bipolar II disorder Dx in 2005. Medications [place] 300 mg twice per day and Lamictal 150 mg at bedtime Note: Patient reports unable to tolerate higher dosages of [place] and Lamictal Chronic back pain High risk medication use Immunization counseling Leukocytosis, unspecified Long-term use of high-risk medication - Long-term narcotic use--currently on hydrocodone 7.5 mg taking 4-5 tablets per day. She is currently working with pain clinic to reduce her narcotic use. Continue management with pain clinic. 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 Treated with Benadryl and Zofran. 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 Family/Other Hypertension Paternal aunt, maternal uncle Stroke Paternal aunt, Maternal uncles x 2. Social History Smoking and tobacco status: current every day smoker cigarettes Packs smoked per day: 0.5 [ Other cigarette details: down from 1-1/2 packs daily; no vaping ] Alcohol intake: never Additional social history: Well balanced diet Female Reproductive History: Date of last menstrual period: 10/25/20 Physical Exam Const: COMMON NORMALS: no acute distress, average body habitus and patient oriented x3 HENMT: COMMON NORMALS: normocephalic HEAD & SCALP: normal to inspection and normocephalic FACE & SINUS: normal facial exam Eye: COMMON NORMALS: conjunctivae normal GENERAL EYE: appearance normal, both eyes and all related structures CONJUNCTIVA: Yes conjunctivae normal Neck/C-Spine: COMMON NORMALS: no JVD Chest: COMMONS NORMALS: normal inspection of the chest Resp: COMMON NORMALS: normal respiratory effort and clear to auscultation bilaterally AUSCULTATION: clear to auscultation bilaterally Cardio: COMMON NORMALS: no JVD, regular rate and regular rhythm RATE: regular rate RHYTHM: regular rhythm GI: COMMON NORMALS: Normal to inspection, nondistended, normoactive bowel sounds present Extremity: COMMON NORMALS: normal to inspection and full ROM Neuro: COMMON NORMALS: patient oriented x3 and CN's II-XII intact bilaterally Course Vital Signs: Vital signs: Vital Signs Temperature 98.6 F 11/21/20 09:33 Pulse Rate 88 11/21/20 09:33 Respiratory Rate 18 11/21/20 12:13 Blood Pressure 162/89 11/21/20 09:33 Pulse Oximetry 96 11/21/20 09:33 MDM - General Adult MDM Narrative: Medical decision making narrative: Patient is a started new intermuscular injection for her psoriatic arthritis 2 weeks ago and symptoms have been happening since then. She has had redness in the face joint pain and a variety of other things. Today her symptoms were that she was having spasms mother thought she is having seizure but patient is awake during the whole time and move throughout the house knocking over furniture because of the spasms as per the mother and the patient agrees with this. She did have symptoms while here in the ER while the nurse was there consistent with a pseudoseizure and that patient was talking and saying that she was having a seizure in her legs at this time. Patient had no spasms after I saw her medications seem to help there to follow-up get labs next week and recheck potassium and hold off on giving more injections of her new medication for arthritis. Lab Data: Labs: Lab Results 11/21/20 11/21/20 Range/Units 09:30 09:30 WBC 8.9 (4.0-10.0) 10^3/ uL RBC 4.69 (4.1-5.3) 10^6/u L Hgb 14.3 (11.5-15.3) g/dL Hct 43.6 (37.0-47.0) % MCV 93.0 (81-99) fL MCH 30.5 (28.0-34.0) pg MCHC 32.8 (30.0-36.0) g/dL RDW 13.3 (12.1-15.1) % Plt Count 392 (130-400) 10^3/c mm MPV 9.7 (7.4-10.4) fL Neut % (Auto) 57.3 % Lymph % (Auto) 31.2 % [place] % (Auto) 7.8 % Eos % (Auto) 2.6 % Baso % (Auto) 0.4 % Neut # (Auto) 5.11 (1.8-7.7) 10^3/u L Lymph # (Auto) 2.8 (0.8-4.8) 10^3/u L [place] # (Auto) 0.7 (0.2-0.9) 10^3/u L Eos # (Auto) 0.2 (0.0-0.8) 10^3/u L Baso # (Auto) 0.0 (0.0-0.1) 10^3/u L Nucleated RBC % (a uto) 0 % Nucleated RBCs # 0.0 /100WBC Sodium 140 (136-145) mmol/L Potassium 3.1 L (3.5-5.1) mmol/L Chloride 103 (98-107) mmol/L Carbon Dioxide 22 (22-29) mmol/L Anion Gap 18.1 (5-19) BUN 12 (6-20) mg/dL Creatinine 0.8 (0.5-0.9) mg/dL GFR Calculation 80.7 L (90-130) mL/min Glucose 94 (65-115) mg/dL Calculated Osmolal ity 290 (285-295) mOsm/k g Calcium 8.6 (8.5-10.5) mg/dL Total Bilirubin 0.2 (0.15-1.2) mg/dL AST 20 (0-32) U/L ALT 27 (0-33) U/L Alkaline Phosphata se 65 (35-105) IU/L Total Protein 7.0 (6.6-8.7) g/dL Albumin 4.2 (3.5-5.2) g/dL Globulin 2.8 (1.3-4.6) g/dL Discharge Plan Discharge Patient Disposition: Home Clinical Impression: Hypokalemia, Involuntary muscle contractions Adverse effect of drug/medicinal Qualifiers: Encounter type: initial encounter Qualified Code(s): T50.905A - Adverse effect of unspecified drugs, medicaments and biological substances, initial encounter Condition: Stable Prescriptions: New K-Tab 20 mEq tablet extended release 20 meq PO DAILY Qty: 20 RF: 0 Skelaxin 800 mg tablet 800 mg PO TID PRN (Reason: muscle pain) Qty: 14 RF: 0 No Action hydrocodone-acetaminophen 7.5-325 mg tablet 0.5 tab PO DAILY RF: 0 promethazine 25 mg tablet 25 mg PO QID PRN (Reason: nausea and vomiting) Qty: 60 RF: 6 cholecalciferol (vitamin D3) 1,000 unit capsule 1,000 unit PO BID RF: 0 multivitamin Tablet 1 tab PO QAM RF: 0 prednisone 10 mg tablet See Rx Instructions PO .COMPLEX PRN (Reason: joint pain) Qty: 30 RF: 1 diphenhydramine HCl [Benadryl] 25 mg capsule 25 mg PO Q6H PRNRF: 0 ondansetron HCl [Zofran] 4 mg tablet 4 mg PO Q8H PRN (Reason: nausea and vomiting) Qty: 30 RF: 2 diclofenac sodium 75 mg tablet,delayed release (DR/EC) 75 mg PO BID Qty: 60 RF: 3 fluoxetine [Prozac] 20 mg capsule 20 mg PO .morning Qty: 30 RF: 6 lithium carbonate 300 mg capsule 300 mg PO BID Qty: 60 RF: 6 lamotrigine [Lamictal] 25 mg tablet 50 mg PO .bedtime Qty: 42 RF: 0 Taltz Autoinjector (3 Pack) 80 mg/mL auto-injector See Rx Instructions SUBCUT .COMPLEX Qty: 3 RF: 0 Taltz Autoinjector 80 mg/mL auto-injector 80 mg SUBCUT .[id number] Qty: 1 RF: 2 Discharge Orders: Discharge ED (Routine); Ordered 11/21/20 Ordered By: Nayan Og Referrals: Kanchan Rivero, ELECTROLYSIS OPERATOR [Primary Care Provider] - Discharge Diet: Usual diet Discharge Activity: Resume usual activity Patient Instructions: Hypokalemia (ED), Muscle Spasm (ED) Activity Restrictions/Additional Instructions: Follow-up with medical provider as directed. Take medications as prescribed. Return to the ER or your medical provider if condition worsens. Please read and understand discharge instructions. If any questions ask please. Follow-up with your primary care and your sports trainer both and go over your medication that you are taking and possible side effects. Coding Level of Care Code ED Finishing Area Operator for Chg Fwd Exam Comprehensive
[2020-11-21] MEDS: orphenadrine 30 mg/mL Inj 2 mL IVP (10:25)
[2020-11-21 10:26] LABS: Basophils % 0.4 %; Eosinophils # 0.2 10^3/uL (0.0-0.8); Eosinophils % 2.6 %; Hematocrit 43.6 % (37.0-47.0); Hemoglobin 14.3 g/dL (11.5-15.3); Lymphocytes # 2.8 10^3/uL (0.8-4.8); Lymphocytes % 31.2 %; Mean Corpuscular HGB Conc 32.8 g/dL (30.0-36.0); Mean Corpuscular Hemoglobin 30.5 pg (28.0-34.0); Mean Platelet Volume 9.7 fL (7.4-10.4); Monocytes # 0.7 10^3/uL (0.2-0.9); Monocytes % 7.8 %; Neutrophils # 5.11 10^3/uL (1.8-7.7); Neutrophils % 57.3 %; Nucleated Red Blood Cells % 0 %; Platelet Count 392 10^3/cmm (130-400); Red Blood Count 4.69 10^6/uL (4.1-5.3); Red Cell Distribution Width 13.3 % (12.1-15.1); White Blood Count 8.9 10^3/uL (4.0-10.0)
[2020-11-21 10:34] LABS: Alanine Aminotransferase 27 U/L (0-33); Albumin Level 4.2 g/dL (3.5-5.2); Alkaline Phosphatase 65 IU/L (35-105); Anion Gap 18.1 (5-19); Aspartate Amino Transferase 20 U/L (0-32); Blood Urea Nitrogen 12 mg/dL (6-20); Calcium 8.6 mg/dL (8.5-10.5); Carbon Dioxide 22 mmol/L (22-29); Chloride 103 mmol/L (98-107); Globulin 2.8 g/dL (1.3-4.6); Glomerular Filtration Rate 80.7 mL/min (90-130); Glucose 94 mg/dL (65-115); Osmolality Calculated 290 mOsm/kg (285-295); Potassium 3.1 mmol/L (3.5-5.1); Sodium 140 mmol/L (136-145); Total Bilirubin 0.2 mg/dL (0.15-1.2)
[2020-11-21] MEDS: potassium chloride ER 20 mEq Tablet 40 MEQ PO (11:12)
[2020-11-21 12:13] VITALS: RESP 18
== END 2020-11-21 12:13 | disposition home or self-care (01) ==
PROVIDERS: Emergency Provider Nurse Practitioner Family; PCP Nurse Practitioner Family
DX: M62.40 Contracture of muscle, unspecified site (principal); E87.6 Hypokalemia; T50.905A Adverse effect of unspecified drugs, medicaments and biological substances, initial encounter; F17.210 Nicotine dependence, cigarettes, uncomplicated
CPT/HCPCS: 80053; 85025; 96374; 96375; 99283; J2360; J2930

== ENCOUNTER 2020-11-22 06:19 | Observation (INO) | payer MEDICAID, SELFPAY ==
[2020-11-22] VITALS (9 sets, daily range): BP systolic 114–173; BP diastolic 52–98; PULSE 76–110; RESP 17–18; TEMP 36.6–37.2; O2SAT 96–98; BMI 46.7
--- NOTE | 2020-11-22 06:42 | ED_ITS ---
HPI - General Adult General: Chief complaint: General Medical Stated complaint: multiple complaints Time Seen by Provider: 11/22/20 06:34 Source: patient Mode of arrival: ambulatory Limitations: no limitations History of Present Illness: HPI narrative: 35-year-old female who is concerned she may be having serotonin syndrome. She states she had 2 possible seizures yesterday and is felt very jittery and had restless legs throughout the night and this morning. She appears slightly anxious. She denies any vomiting or diarrhea. Denies any pain anywhere. She is been afebrile. She has mild tachycardia. She did start a new arthritis medicine 2 weeks ago. Associated symptoms: Deny chest pain, dyspnea, headache(s), nausea, rash or vomiting Review of Systems Const: Denies: fever(s), chills, body aches or change in appetite Eyes: Denies: blurry vision or eye discomfort ENMT: Denies: throat pain or dental pain Card: Denies: chest pain Resp: Denies: dyspnea GI: Denies: abdominal pain, nausea, vomiting or diarrhea : Denies: dysuria Musc: Denies: neck pain or back pain Skin/Breast: Denies: rash Neuro: Reports: numbness in extremities and restless legs; Denies: headache(s) Psych: Denies: depression [place]/Lymph: Denies: easy bruising All/Imm: Denies: urticaria PFSH ED PFSH: Medical History (Updated 11/22/20 @ 09:00 by Amaury Moura MD) Bipolar II disorder Dx in 2005. Medications [place] 300 mg twice per day and Lamictal 150 mg at bedtime Note: Patient reports unable to tolerate higher dosages of [place] and Lamictal Chronic back pain High risk medication use Immunization counseling Leukocytosis, unspecified Long-term use of high-risk medication - Long-term narcotic use--currently on hydrocodone 7.5 mg taking 4-5 tablets per day. She is currently working with pain clinic to reduce her narcotic use. Continue management with pain clinic. 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 Treated with Benadryl and Zofran. 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 Family/Other Hypertension Paternal aunt, maternal uncle Stroke Paternal aunt, Maternal uncles x 2. Social History Smoking and tobacco status: current every day smoker cigarettes Packs smoked per day: 0.5 [ Other cigarette details: down from 1-1/2 packs daily; no vaping ] Alcohol intake: never Additional social history: Well balanced diet Female Reproductive History: Date of last menstrual period: 10/25/20 Physical Exam Const: COMMON NORMALS: no acute distress, patient oriented x3 and healthy appearing HENMT: COMMON NORMALS: normocephalic and atraumatic HEAD & SCALP: normocephalic and atraumatic Eye: COMMON NORMALS: Equal, round and reactive pupils present and EOMs intact bilaterally PUPIL: Yes Equal, round and reactive pupils present Neck/C-Spine: COMMON NORMALS: full ROM and supple Chest: COMMONS NORMALS: normal inspection of the chest and normal palpation of entire chest wall Resp: COMMON NORMALS: normal respiratory effort, No retractions, No use of accessory muscles and clear to auscultation bilaterally AUSCULTATION: clear to auscultation bilaterally Cardio: COMMON NORMALS: regular rate, regular rhythm and No murmurs present (Cardio) RATE: regular rate RHYTHM: regular rhythm GI: COMMON NORMALS: Normal to inspection, nondistended, normoactive bowel sounds present, Soft to palpation, non-tender and no masses PALPATION: Yes Soft to palpation Extremity: COMMON NORMALS: normal to inspection and full ROM Neuro: COMMON NORMALS: patient oriented x3, moves all extremities and no focal motor deficits Psych: COMMON NORMALS: mental status grossly normal, Normal thought process present and cooperative THOUGHT PROCESS: Normal thought process present Skin: COMMON NORMALS: no rashes or lesions noted and no wounds GENERAL SKIN EXAM: no rashes or lesions noted Course Vital Signs: Vital signs: Vital Signs Temperature 99.0 F 11/22/20 06:24 Pulse Rate 84 11/22/20 08:03 Respiratory Rate 18 11/22/20 08:03 Blood Pressure 114/52 11/22/20 08:03 Pulse Oximetry 96 11/22/20 08:03 MDM - General Adult MDM Narrative: Medical decision making narrative: Patient presents here with uncontrolled movements of her extremities. She feels much improved here after Cogentin and these could be extraparametal syndrome. She does have an elevated white blood cell count and CK and concern of possible serotonin syndrome although I think it is much less likely. Spoke to hospitalist will admit for observation to trend her white count and CK. Lab Data: Labs: Lab Results 11/22/20 11/22/20 Range/Units 06:54 06:54 WBC 22.2 H (4.0-10.0) 10^3/ uL RBC 4.56 (4.1-5.3) 10^6/u L Hgb 14.0 (11.5-15.3) g/dL Hct 41.0 (37.0-47.0) % MCV 89.9 (81-99) fL MCH 30.7 (28.0-34.0) pg MCHC 34.1 (30.0-36.0) g/dL RDW 13.3 (12.1-15.1) % Plt Count 420 H (130-400) 10^3/c mm MPV 9.3 (7.4-10.4) fL Neut % (Auto) 84.3 % Lymph % (Auto) 9.8 % [place] % (Auto) 5.1 % Eos % (Auto) 0.0 % Baso % (Auto) 0.1 % Neut # (Auto) 18.73 H (1.8-7.7) 10^3/u L Lymph # (Auto) 2.2 (0.8-4.8) 10^3/u L [place] # (Auto) 1.1 H (0.2-0.9) 10^3/u L Eos # (Auto) 0.0 (0.0-0.8) 10^3/u L Baso # (Auto) 0.0 (0.0-0.1) 10^3/u L Nucleated RBC % (a uto) 0 % Nucleated RBCs # 0.0 /100WBC Sodium 138 (136-145) mmol/L Potassium 4.0 (3.5-5.1) mmol/L Chloride 106 (98-107) mmol/L Carbon Dioxide 20 L (22-29) mmol/L Anion Gap 16.0 (5-19) BUN 12 (6-20) mg/dL Creatinine 0.6 (0.5-0.9) mg/dL GFR Calculation 112.5 (90-130) mL/min Glucose 113 (65-115) mg/dL Calculated Osmolal ity 287 (285-295) mOsm/k g Calcium 8.9 (8.5-10.5) mg/dL Creatine Kinase 618 H* (26-192) U/L Discharge Plan Discharge Patient Disposition: Placed in Observation Clinical Impression: Leukocytosis, Fever Condition: Stable Prescriptions: No Action hydrocodone-acetaminophen 7.5-325 mg tablet 0.5 tab PO DAILY RF: 0 promethazine 25 mg tablet 25 mg PO QID PRN (Reason: nausea and vomiting) Qty: 60 RF: 6 cholecalciferol (vitamin D3) 1,000 unit capsule 1,000 unit PO BID RF: 0 multivitamin Tablet 1 tab PO QAM RF: 0 prednisone 10 mg tablet See Rx Instructions PO .COMPLEX PRN (Reason: joint pain) Qty: 30 RF: 1 diphenhydramine HCl [Benadryl] 25 mg capsule 25 mg PO Q6H PRNRF: 0 ondansetron HCl [Zofran] 4 mg tablet 4 mg PO Q8H PRN (Reason: nausea and vomiting) Qty: 30 RF: 2 diclofenac sodium 75 mg tablet,delayed release (DR/EC) 75 mg PO BID Qty: 60 RF: 3 fluoxetine [Prozac] 20 mg capsule 20 mg PO .morning Qty: 30 RF: 6 lithium carbonate 300 mg capsule 300 mg PO BID Qty: 60 RF: 6 lamotrigine [Lamictal] 25 mg tablet 50 mg PO .bedtime Qty: 42 RF: 0 Taltz Autoinjector (3 Pack) 80 mg/mL auto-injector See Rx Instructions SUBCUT .COMPLEX Qty: 3 RF: 0 Taltz Autoinjector 80 mg/mL auto-injector 80 mg SUBCUT .[id number] Qty: 1 RF: 2 K-Tab 20 mEq tablet extended release 20 meq PO DAILY Qty: 20 RF: 0 Skelaxin 800 mg tablet 800 mg PO TID PRN (Reason: muscle pain) Qty: 14 RF: 0 Referrals: Kanchan Rivero FNP [Primary Care Provider] - Coding Level of Care Code ED Buckle Sewer for Chg Fwd Exam Comprehensive
[2020-11-22] MEDS: benztropine 1 mg/mL SDV 2 mL IM (07:01)
[2020-11-22 07:02] LABS: Basophils % 0.1 %; Lymphocytes # 2.2 10^3/uL (0.8-4.8); Lymphocytes % 9.8 %; Mean Corpuscular HGB Conc 34.1 g/dL (30.0-36.0); Mean Corpuscular Hemoglobin 30.7 pg (28.0-34.0); Mean Corpuscular Volume 89.9 fL (81-99); Mean Platelet Volume 9.3 fL (7.4-10.4); Monocytes # 1.1 10^3/uL (0.2-0.9); Monocytes % 5.1 %; Neutrophils # 18.73 10^3/uL (1.8-7.7); Neutrophils % 84.3 %; Nucleated Red Blood Cells % 0 %; Platelet Count 420 10^3/cmm (130-400); Red Blood Count 4.56 10^6/uL (4.1-5.3); Red Cell Distribution Width 13.3 % (12.1-15.1); White Blood Count 22.2 10^3/uL (4.0-10.0)
[2020-11-22] MEDS: sodium chloride 0.9% 1,000 ML 999 ML IV (07:04)
--- NOTE | 2020-11-22 07:06 | XRR_ITS ---
PROCEDURE INFORMATION: Exam: XR Chest Exam date and time: 11/22/2020 7:07 AM Age: 35 years old Clinical indication: Fever and shortness of breath TECHNIQUE: Imaging protocol: XR of the chest Views: 1 view. COMPARISON: CR Chest 2 views* [id number] 05/27/2014 7:16 PM FINDINGS: Lungs: Unremarkable. No consolidation. Pleural spaces: Unremarkable. No pleural effusion. No pneumothorax. Heart/Mediastinum: Unremarkable. No cardiomegaly. Bones/joints: Unremarkable. XR/XR chest 1V portable [id number] IMPRESSION: No acute findings.
[2020-11-22] MEDS: LORazepam 2 mg/mL INJ 1 mL 1 MG IVP (07:14)
[2020-11-22 07:23] LABS: Blood Urea Nitrogen 12 mg/dL (6-20); Calcium 8.9 mg/dL (8.5-10.5); Carbon Dioxide 20 mmol/L (22-29); Chloride 106 mmol/L (98-107); Glomerular Filtration Rate 112.5 mL/min (90-130); Glucose 113 mg/dL (65-115); Osmolality Calculated 287 mOsm/kg (285-295); Sodium 138 mmol/L (136-145)
[2020-11-22 07:33] LABS: Creatine Phosphokinase 618 U/L (26-192)
--- NOTE | 2020-11-22 07:57 | PC.NURSE ---
Mother at bedside, fluids infusing. Pt states still have tingling down backside of both legs
[2020-11-22 09:17] LABS: HCG Qualitative Urine. Negative (Negative)
[2020-11-22 09:24] LABS: Glucose Urine UA Norm (Normal); Protein Urine 1+ (Negative); Urine Appearance Clear (CLEAR); Urine Color Yellow (Yellow); pH Urine 5 (5-7)
[2020-11-22 09:25] LABS: Add Urine Microscopic? YES; Bilirubin Urine Neg (Negative); Blood Urine 2+ (Negative); Ketones Urine Negative (Negative); Leukocyte Esterase Urine Negative (Negative); Nitrate Urine Negative (Negative); Urobilinogen Urine Norm (Negative)
[2020-11-22 09:26] LABS: Bacteria Urine 1+ /hpf; Mucus Urine 1+ /hpf; Squamous Epithelial Cell Urine 0-4 /hpf (0-5); WBC Urine RARE /hpf (0-5)
[2020-11-22 09:28] LABS: Add Urine Culture? No
[2020-11-22 09:46] LABS: Lithium 0.1 mmol/L (0.6-1.2)
--- NOTE | 2020-11-22 09:56 | ED_ITS ---
HPI - General Adult General: Chief complaint: General Medical Stated complaint: multiple complaints Time Seen by Provider: 11/22/20 06:34 Source: patient Mode of arrival: ambulatory Limitations: no limitations PFSH ED PFSH: Medical History (Updated 11/22/20 @ 09:00 by Amaury Moura MD) Bipolar II disorder Dx in 2005. Medications [place] 300 mg twice per day and Lamictal 150 mg at bedtime Note: Patient reports unable to tolerate higher dosages of [place] and Lamictal Chronic back pain High risk medication use Immunization counseling Leukocytosis, unspecified Long-term use of high-risk medication - Long-term narcotic use--currently on hydrocodone 7.5 mg taking 4-5 tablets per day. She is currently working with pain clinic to reduce her narcotic use. Continue management with pain clinic. 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 Treated with Benadryl and Zofran. 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 Family/Other Hypertension Paternal aunt, maternal uncle Stroke Paternal aunt, Maternal uncles x 2. Social History Smoking and tobacco status: current every day smoker cigarettes Packs smoked per day: 0.5 [ Other cigarette details: down from 1-1/2 packs daily; no vaping ] Alcohol intake: never Additional social history: Well balanced diet Female Reproductive History: Date of last menstrual period: 10/25/20 Course Vital Signs: Vital signs: Vital Signs Temperature 99.0 F 11/22/20 06:24 Pulse Rate 83 11/22/20 09:00 Respiratory Rate 18 11/22/20 09:00 Blood Pressure 140/87 11/22/20 09:00 Pulse Oximetry 98 11/22/20 09:00 MDM - General Adult MDM Narrative: Medical decision making narrative: i did not see pt today, chart started by mistake Lab Data: Labs: Lab Results 11/22/20 11/22/20 11/22/20 Range/Units 06:54 06:54 07:14 WBC 22.2 H (4.0-10.0) 10^3/ uL RBC 4.56 (4.1-5.3) 10^6/u L Hgb 14.0 (11.5-15.3) g/dL Hct 41.0 (37.0-47.0) % MCV 89.9 (81-99) fL MCH 30.7 (28.0-34.0) pg MCHC 34.1 (30.0-36.0) g/dL RDW 13.3 (12.1-15.1) % Plt Count 420 H (130-400) 10^3/c mm MPV 9.3 (7.4-10.4) fL Neut % (Auto) 84.3 % Lymph % (Auto) 9.8 % [place] % (Auto) 5.1 % Eos % (Auto) 0.0 % Baso % (Auto) 0.1 % Neut # (Auto) 18.73 H (1.8-7.7) 10^3/u L Lymph # (Auto) 2.2 (0.8-4.8) 10^3/u L [place] # (Auto) 1.1 H (0.2-0.9) 10^3/u L Eos # (Auto) 0.0 (0.0-0.8) 10^3/u L Baso # (Auto) 0.0 (0.0-0.1) 10^3/u L Nucleated RBC % (a uto) 0 % Nucleated RBCs # 0.0 /100WBC Sodium 138 (136-145) mmol/L Potassium 4.0 (3.5-5.1) mmol/L Chloride 106 (98-107) mmol/L Carbon Dioxide 20 L (22-29) mmol/L Anion Gap 16.0 (5-19) BUN 12 (6-20) mg/dL Creatinine 0.6 (0.5-0.9) mg/dL GFR Calculation 112.5 (90-130) mL/min Glucose 113 (65-115) mg/dL Calculated Osmolal ity 287 (285-295) mOsm/k g Calcium 8.9 (8.5-10.5) mg/dL Creatine Kinase 618 H* (26-192) U/L HCG, Qual (Negative) Urine Color Yellow (Yellow) Urine Appearance Clear (CLEAR) Urine pH 5 (5-7) Ur Specific Gravit y 1.020 (1.005-1.030) Urine Protein 1+ H (Negative) Urine Glucose (UA) Norm (Normal) Urine Ketones Negative (Negative) Urine Blood 2+ H (Negative) Urine Nitrate Negative (Negative) Urine Bilirubin Neg (Negative) Urine Urobilinogen Norm (Negative) mg/dL Ur Leukocyte Dede ase Negative (Negative) Urine RBC None (0-2) /hpf Urine WBC Rare (0-5) /hpf Ur Squamous Epith Cells 0-4 H (0-5) /hpf Amorphous Sediment Not Reportable Urine Bacteria 1+ H (NONE) /hpf Urine Mucus 1+ /hpf [place] (0.6-1.2) mmol/L 11/22/20 11/22/20 Range/Units 07:14 08:58 WBC (4.0-10.0) 10^3/ uL RBC (4.1-5.3) 10^6/u L Hgb (11.5-15.3) g/dL Hct (37.0-47.0) % MCV (81-99) fL MCH (28.0-34.0) pg MCHC (30.0-36.0) g/dL RDW (12.1-15.1) % Plt Count (130-400) 10^3/c mm MPV (7.4-10.4) fL Neut % (Auto) % Lymph % (Auto) % [place] % (Auto) % Eos % (Auto) % Baso % (Auto) % Neut # (Auto) (1.8-7.7) 10^3/u L Lymph # (Auto) (0.8-4.8) 10^3/u L [place] # (Auto) (0.2-0.9) 10^3/u L Eos # (Auto) (0.0-0.8) 10^3/u L Baso # (Auto) (0.0-0.1) 10^3/u L Nucleated RBC % (a uto) % Nucleated RBCs # /100WBC Sodium (136-145) mmol/L Potassium (3.5-5.1) mmol/L Chloride (98-107) mmol/L Carbon Dioxide (22-29) mmol/L Anion Gap (5-19) BUN (6-20) mg/dL Creatinine (0.5-0.9) mg/dL GFR Calculation (90-130) mL/min Glucose (65-115) mg/dL Calculated Osmolal ity (285-295) mOsm/k g Calcium (8.5-10.5) mg/dL Creatine Kinase (26-192) U/L HCG, Qual Negative (Negative) Urine Color (Yellow) Urine Appearance (CLEAR) Urine pH (5-7) Ur Specific Gravit y (1.005-1.030) Urine Protein (Negative) Urine Glucose (UA) (Normal) Urine Ketones (Negative) Urine Blood (Negative) Urine Nitrate (Negative) Urine Bilirubin (Negative) Urine Urobilinogen (Negative) mg/dL Ur Leukocyte Dede ase (Negative) Urine RBC (0-2) /hpf Urine WBC (0-5) /hpf Ur Squamous Epith Cells (0-5) /hpf Amorphous Sediment Urine Bacteria (NONE) /hpf Urine Mucus /hpf [place] 0.1 L (0.6-1.2) mmol/L Discharge Plan Discharge Patient Disposition: Placed in Observation Clinical Impression: Leukocytosis, Fever Coding Level of Care Code ED Death Claim Clerk for Terry Pedroza
--- NOTE | 2020-11-22 15:52 | PC.NURSE ---
Patient was upset, and wanted to leave. Risk went over with patient. Physician notified, and waiver signed. Patient ambulated out of building. Patient refused to be pushed out in a wheelchair.
--- NOTE | 2020-11-22 19:03 | PM.HP ---
Providers/Chief Complaint Admitting Physician: Virginia Dixon MD Primary Care Provider: Kanchan Rivero Chief Complaint: multiple complaints History of Present Illness I was called for admission by ER physician this morning to admit Ms. Jeong who presented with concerns for serotonin syndrome. She received Cogentin in the ICU and felt much improved. By later this morning, she elected to leave AMA prior to my assessment. Medications/Allergies Home Medications Medication Instructions Recorded Confirmed Last Taken Type cholecalciferol (vitamin D3) 25 1,000 unit PO BID cap 09/20/19 11/22/20 11/21/20 History mcg (1,000 unit) capsule multivitamin 1 tab PO QAM 09/20/19 11/22/20 11/21/20 History promethazine 25 mg tablet 25 mg PO QID PRN #60 tab 10/28/19 11/22/20 Unknown Rx diphenhydramine HCl 25 mg capsule 25 mg PO Q6H PRN cap 11/05/19 11/22/20 11/20/20 History ondansetron HCl 4 mg tablet 4 mg PO Q8H PRN #30 tab 12/19/19 11/22/20 Unknown Rx diclofenac sodium 75 mg 75 mg PO BID #60 tab 07/09/20 11/22/20 11/21/20 Rx tablet,delayed release prednisone 10 mg tablet See Rx Instructions PO .COMPLEX 10/19/20 11/22/20 Unknown Rx PRN #30 tab ixekizumab 80 mg/mL subcutaneous 80 mg SUBCUT .R5twami #1 ml 11/04/20 11/22/20 Unknown Rx auto-injector lithium carbonate 300 mg capsule 300 mg PO BID #60 cap 11/12/20 11/22/20 11/21/20 Rx metaxalone [Skelaxin] 800 mg PO TID PRN #14 tab 11/21/20 11/22/20 Unknown Rx potassium chloride [K-Tab] 20 meq PO DAILY #20 tab 11/21/20 11/22/20 Unknown Rx Lamictal 25 mg PO BEDTIME 11/22/20 11/22/20 11/21/20 History Prozac 20 mg PO DAILY 11/22/20 11/22/20 11/22/20 History hydrocodone-acetaminophen 1 tab PO Q4H PRN 03/11/22/20 11/21/20 History simvastatin 20 mg PO BEDTIME 11/22/20 11/22/20 11/21/20 History Allergies Allergy/AdvReac Type Severity Reaction Status Date / Time albuterol [From ProAir HFA] Allergy Difficulty Verified 11/22/20 06:31 breathing sodium benzoate Allergy Swelling, Verified 11/22/20 06:31 migraine sulfamethoxazole Allergy Swelling Verified 11/22/20 06:31 [From Bactrim] topiramate [From Topamax] Allergy Muscle Verified 11/22/20 06:31 spasm trimethoprim [From Bactrim] Allergy Swelling Verified 11/22/20 06:31 leflunomide AdvReac Severe Daily Verified 11/22/20 06:31 migraines with trip to ER methotrexate AdvReac Intermediate ached bad Verified 11/22/20 06:31 all over joints and muscles PFSH Acute PFSH: Medical History (Updated 11/22/20 @ 09:00 by Amaury Moura MD) Bipolar II disorder Dx in 2005. Medications [place] 300 mg twice per day and Lamictal 150 mg at bedtime Note: Patient reports unable to tolerate higher dosages of [place] and Lamictal Chronic back pain High risk medication use Immunization counseling Leukocytosis, unspecified Long-term use of high-risk medication - Long-term narcotic use--currently on hydrocodone 7.5 mg taking 4-5 tablets per day. She is currently working with pain clinic to reduce her narcotic use. Continue management with pain clinic. 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 Treated with Benadryl and Zofran. 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 Family/Other Hypertension Paternal aunt, maternal uncle Stroke Paternal aunt, Maternal uncles x 2. Social History Smoking and tobacco status: current every day smoker cigarettes Packs smoked per day: 0.5 [ Other cigarette details: down from 1-1/2 packs daily; no vaping ] Alcohol intake: never Additional social history: Well balanced diet Female Reproductive History: Date of last menstrual period: 10/25/20 Vitals/I&O/Wt Last Vital Signs Temp 97.9 F 11/22/20 15:51 Pulse 89 11/22/20 15:51 Resp 18 11/22/20 15:51 BP 129/82 11/22/20 15:51 Pulse Ox 97 11/22/20 15:51 11/22/20 11/22/20 11/22/20 06:59 14:59 22:59 Intake Total 1000 / 1000 Balance 1000 / 1000 Weight last 48 hrs Weight 131.542 kg Data : 11/22/20 06:54 11/22/20 06:54 Micro: Microbiology 11/22/20 07:30 Blood Culture - Preliminary Blood SPECIMEN COLLECTED Attestations Medical Necessity Statement*: Patient left AMA prior to my assessment today. Coding Level of Care Code Acute Information Systems Specialist for Terry Pedroza
== END 2020-11-22 15:53 | disposition left against medical advice (07) ==
LOC: ER 09:57 → MEDSURG 11:30
PROVIDERS: Admitting Provider Student in an Organized Health Care Education/Training Program; Emergency Provider Emergency Medicine; PCP Nurse Practitioner Family; Visit Provider Student in an Organized Health Care Education/Training Program
DX: T43.221A Poisoning by selective serotonin reuptake inhibitors, accidental (unintentional), initial encounter (principal); Z53.29 Procedure and treatment not carried out because of patient's decision for other reasons; F31.9 Bipolar disorder, unspecified; F17.210 Nicotine dependence, cigarettes, uncomplicated
CPT/HCPCS: 71045; 80048; 80178; 81001; 81025; 82550; 85025; 87040; 96361; 96372; 96374; 99285; G0378; J0515; J2060; J7030

== ENCOUNTER → 2020-11-23 08:12 | Outpatient (BNVA) | payer MEDICAID, SELFPAY | PROVIDERS: PCP Nurse Practitioner Family; Visit Provider Counselor Professional | DX: F31.81 Bipolar II disorder (principal); F41.0 Panic disorder [episodic paroxysmal anxiety] | CPT/HCPCS: 90834 ==

== ENCOUNTER 2020-11-23 21:00 | Emergency (ER) | payer MEDICAID, SELFPAY ==
[2020-11-23 21:36] VITALS: BP 151/88; PULSE 86; RESP 14; TEMP 35.8; O2SAT 97; BMI 46.7
--- NOTE | 2020-11-23 23:40 | ED_ITS ---
HPI - Headache General: Chief Complaint: Headache Stated Complaint: N/V, MIGRAINE Time Seen by Provider: 11/23/20 23:19 History of Present Illness: HPI Narrative: Patient is a 35-year-old female comes to the ED with a migraine. Patient has a past medical history of migraines and she states that this migraine is just like her past migraines. Symptoms started at 7 PM tonight. She says the headache is located in the back of her head and she rates this migraine an 8 out of 10. She also has associated nausea/vomiting and photophobia. She states she tried to take some Phenergan and Benadryl at home, but states she immediately threw it up. She denies being and hCG test performed on November 22 was negative. Associated symptoms: Reports nausea, photophobia and vomiting; Deny chest pain, fever(s) or rash Review of Systems Const: Denies: fever(s), chills or fatigue Eyes: Reports: photophobia; Denies: change in vision or eye discomfort ENMT: Denies: throat pain, odynophagia, nasal discharge or nasal congestion Card: Denies: chest pain, palpitations, edema, swelling of feet/ankles, dyspnea on exertion or orthopnea Resp: Denies: dyspnea, productive cough or non-productive cough GI: Reports: nausea and vomiting; Denies: abdominal pain, diarrhea, constipation or hematochezia : Denies: flank pain, dysuria or hematuria Musc: Denies: neck pain, back pain or extremity swelling Skin/Breast: Denies: rash or new lesions Neuro: Reports: headache(s); Denies: numbness in extremities or weakness in extremities [facility] ED PFSH: Medical History Bipolar II disorder Dx in 2005. Medications [place] 300 mg twice per day and Lamictal 150 mg at bedtime Note: Patient reports unable to tolerate higher dosages of [place] and Lamictal Chronic back pain High risk medication use Immunization counseling Leukocytosis, unspecified Long-term use of high-risk medication - Long-term narcotic use--currently on hydrocodone 7.5 mg taking 4-5 tablets per day. She is currently working with pain clinic to reduce her narcotic use. Continue management with pain clinic. 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 Treated with Benadryl and Zofran. 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 Family/Other Hypertension Paternal aunt, maternal uncle Stroke Paternal aunt, Maternal uncles x 2. Social History Smoking and tobacco status: current every day smoker cigarettes Packs smoked per day: 0.5 [ Other cigarette details: down from 1-1/2 packs daily; no vaping ] Alcohol intake: never Additional social history: Well balanced diet Female Reproductive History: Date of last menstrual period: 10/25/20 Physical Exam Const: COMMON NORMALS: no acute distress, patient oriented x3 and alert GENERAL APPEARANCE: cooperative and comfortable HENMT: COMMON NORMALS: normocephalic HEAD & SCALP: normocephalic MOUTH: Normal oral and palatal mucosa present THROAT: posterior oropharynx normal and uvula midline Eye: DIRECT OPHTHALMOSCOPY: Yes photophobia Neck/C-Spine: COMMON NORMALS: supple GENERAL: Yes normal visual inspection Resp: COMMON NORMALS: normal respiratory effort, No retractions, No use of accessory muscles and clear to auscultation bilaterally AUSCULTATION: clear to auscultation bilaterally Cardio: COMMON NORMALS: regular rate, regular rhythm, S1 normal heart sound present, S2 normal heart sound present, No gallops present (Cardio), No clicks present (Cardio), No murmurs present (Cardio) and Peripheral pulses 2+ throughout RATE: regular rate RHYTHM: regular rhythm HEART SOUNDS: S1 normal heart sound present and S2 normal heart sound present PERIPHERAL PULSES: Peripheral pulses 2+ throughout GI: COMMON NORMALS: Normal to inspection, nondistended, normoactive bowel sounds present, Soft to palpation, non-tender and no masses PALPATION: Yes Soft to palpation : COMMON NORMALS: Yes no CVA tenderness BLADDER/KIDNEY EXAM: Yes no CVA tenderness Back/Pelvis: COMMON NORMALS: no CVA tenderness Extremity: COMMON NORMALS: normal to inspection Neuro: COMMON NORMALS: patient oriented x3 and moves all extremities SENSORIUM/ORIENTATION: Yes alert Skin: GENERAL SKIN EXAM: dry skin Course Reevaluation(s): Reevaluation #1: I went in to check on patient approximately around 30 minutes after she received her meds here in the ED. She now reports a big improvement in migraine and says that she currently rates her migraine a 2 out of 10. Patient is ready to go home and rest. Time: 00:48 Vital Signs: Vital signs: Vital Signs Temperature 96.4 F L 11/23/20 21:36 Pulse Rate 86 11/23/20 21:36 Respiratory Rate 14 11/23/20 21:36 Blood Pressure 151/88 11/23/20 21:36 Pulse Oximetry 97 11/23/20 21:36 MDM - Headache MDM Narrative: Medical decision making narrative: Patient is a 35-year-old female comes to the ED with migraine. She has a past medical history of migraines and states that this migraine is just like her previous migraines. She rated her migraine 8 out of 10. She was having photophobia nausea and vomiting. While here in the ED patient received IV fluids, Toradol, Decadron, Reglan and Benadryl. Her migraine improved and now she rates it a 2 out of 10. Patient was diagnosed migraine discharged home. Told to follow-up with PCP in 7 to 10 days for reevaluation. Return to ED precautions given. Patient understood agree with plan. Discharge Plan Discharge Patient Disposition: Home Clinical Impression: Migraine Qualifiers: Migraine type: without aura Status migrainosus presence: without status migrainosus Intractability: not intractable Qualified Code(s): G43.009 - Migraine without aura, not intractable, without status migrainosus Condition: Stable Prescriptions: No Action promethazine 25 mg tablet 25 mg PO QID PRN (Reason: nausea and vomiting) Qty: 60 RF: 6 cholecalciferol (vitamin D3) 1,000 unit capsule 1,000 unit PO BID RF: 0 multivitamin Tablet 1 tab PO QAM RF: 0 prednisone 10 mg tablet See Rx Instructions PO .COMPLEX PRN (Reason: joint pain) Qty: 30 RF: 1 diphenhydramine HCl [Benadryl] 25 mg capsule 25 mg PO Q6H PRN (Reason: Allergic Reaction) RF: 0 ondansetron HCl [Zofran] 4 mg tablet 4 mg PO Q8H PRN (Reason: nausea and vomiting) Qty: 30 RF: 2 diclofenac sodium 75 mg tablet,delayed release (DR/EC) 75 mg PO BID Qty: 60 RF: 3 lithium carbonate 300 mg capsule 300 mg PO BID Qty: 60 RF: 6 [place] Autoinjector 80 mg/mL auto-injector 80 mg SUBCUT .[id number] Qty: 1 RF: 2 potassium chloride [K-Tab] 20 mEq tablet extended release 20 meq PO DAILY Qty: 20 RF: 0 metaxalone [Skelaxin] 800 mg tablet 800 mg PO TID PRN (Reason: muscle pain) Qty: 14 RF: 0 hydrocodone-acetaminophen 10-325 mg Tablet 1 tab PO Q4H PRN (Reason: Pain) RF: 0 simvastatin 20 mg Tablet 20 mg PO BEDTIME RF: 0 Lamictal 25 mg tablet 25 mg PO BEDTIME RF: 0 Prozac 20 mg capsule 20 mg PO DAILY RF: 0 Discharge Orders: Discharge ED (Routine); Ordered 11/24/20 Ordered By: Mode Mistry Referrals: Kanchan Rivero FNP [Primary Care Provider] - Discharge Diet: Regular Discharge Activity: Increase activity as tolerated Patient Instructions: Migraine Headache (ED) Activity Restrictions/Additional Instructions: Follow-up with medical provider as directed in 7 to 10 days for reevaluation. Continue taking all home medications as previously prescribed. Take [id number] ibuprofen or Tylenol for any reoccurring headaches. Return to the ER or your medical provider if condition worsens. Please read and understand discharge instructions. If any questions, please ask. Coding Level of Care Code ED Subassembler for Terry Fwd Exam Comprehensive
[2020-11-24] MEDS: metoclopramide 5 mg/mL SDV 2 mL 10 MG IVP (00:18)
[2020-11-24] MEDS: dexamethasone 4 mg/mL INJ 10 MG IVP (00:20)
[2020-11-24] MEDS: diphenhydrAMINE 50 mg/mL SDV 1mL 25 MG IVP (00:23)
[2020-11-24] MEDS: sodium chloride 0.9% 1,000 ML 999 ML IV (00:24)
[2020-11-24] MEDS: ketorolac 30 mg/mL INJ IVP (00:26)
[2020-11-24 01:32] VITALS: BP 152/89; PULSE 82; RESP 17; O2SAT 98
== END 2020-11-24 01:32 | disposition home or self-care (01) ==
PROVIDERS: Emergency Provider Physician Assistant; PCP Nurse Practitioner Family
DX: G43.009 Migraine without aura, not intractable, without status migrainosus (principal); F17.210 Nicotine dependence, cigarettes, uncomplicated
CPT/HCPCS: 96361; 96374; 96375; 99283; J1100; J1200; J1885; J2765; J7030

== ENCOUNTER → 2020-12-01 07:57 | Outpatient (BNVA) | payer MEDICAID, SELFPAY | PROVIDERS: PCP Nurse Practitioner Family; Visit Provider Specialist | DX: R56.9 Unspecified convulsions (principal); F17.210 Nicotine dependence, cigarettes, uncomplicated | CPT/HCPCS: 95816 ==

== ENCOUNTER → 2020-12-23 08:26 | Outpatient (BNVA) | payer MEDICAID, SELFPAY | PROVIDERS: PCP Nurse Practitioner Family; Visit Provider Counselor Professional | DX: F31.81 Bipolar II disorder (principal); F41.0 Panic disorder [episodic paroxysmal anxiety] | CPT/HCPCS: 90834 ==

== ENCOUNTER → 2020-12-29 07:47 | Outpatient (BNVA) | payer MEDICAID, SELFPAY | PROVIDERS: PCP Nurse Practitioner Family; Visit Provider Nurse Practitioner Psychiatric/Mental Health | DX: F31.81 Bipolar II disorder (principal); F41.0 Panic disorder [episodic paroxysmal anxiety] | CPT/HCPCS: 99214 ==

== ENCOUNTER → 2020-12-31 08:18 | Outpatient (BNVA) | payer MEDICAID, SELFPAY | PROVIDERS: PCP Nurse Practitioner Family; Visit Provider Counselor Professional | DX: F31.81 Bipolar II disorder (principal); F41.0 Panic disorder [episodic paroxysmal anxiety] | CPT/HCPCS: 90834 ==

== ENCOUNTER → 2021-01-12 08:21 | Outpatient (BNVA) | payer MEDICAID, SELFPAY | PROVIDERS: PCP Nurse Practitioner Family; Visit Provider Counselor Professional | DX: L40.0 Psoriasis vulgaris; M47.896 Other spondylosis, lumbar region; G43.011 Migraine without aura, intractable, with status migrainosus; F31.81 Bipolar II disorder; F41.0 Panic disorder [episodic paroxysmal anxiety]; Z79.899 Other long term (current) drug therapy; F17.210 Nicotine dependence, cigarettes, uncomplicated | CPT/HCPCS: 90834; 99214 ==

== ENCOUNTER → 2021-01-13 09:27 | Outpatient (BNVA) | payer MEDICAID, SELFPAY | PROVIDERS: PCP Family Medicine; Visit Provider Nurse Practitioner | DX: R56.9 Unspecified convulsions (principal); R20.2 Paresthesia of skin; Z87.891 Personal history of nicotine dependence | CPT/HCPCS: 99205 ==

== ENCOUNTER 2021-01-13 11:03 | Outpatient (CLI) | payer MEDICAID, SELFPAY ==
[2021-01-13 12:48] LABS: Thyroid Stimulating Hormone 1.19 uIU/mL (0.27-4.20); Vitamin B12 848 pg/mL (232-1245)
[2021-01-13 12:49] LABS: Folate Level 19.1 ng/mL (4.8-37.3)
[2021-01-20 02:18] LABS: Methylmalonic Acid 194 nmol/L (87-318)
== END 2021-01-13 11:04 | disposition home or self-care (01) ==
LOC: LAB 11:09
PROVIDERS: PCP Family Medicine; Visit Provider Nurse Practitioner
DX: R20.2 Paresthesia of skin (principal)
CPT/HCPCS: 36415; 82607; 82746; 83921; 84260; 84443

== ENCOUNTER → 2021-01-21 07:37 | Outpatient (BNVA) | payer MEDICAID, SELFPAY | PROVIDERS: PCP Family Medicine; Visit Provider Counselor Professional | DX: F31.81 Bipolar II disorder (principal); F41.0 Panic disorder [episodic paroxysmal anxiety] | CPT/HCPCS: 90834 ==

== ENCOUNTER → 2021-02-04 08:07 | Outpatient (BNVA) | payer MEDICAID, SELFPAY | PROVIDERS: PCP Family Medicine; Visit Provider Counselor Professional | DX: F31.81 Bipolar II disorder (principal); F41.0 Panic disorder [episodic paroxysmal anxiety] | CPT/HCPCS: 90834 ==

== ENCOUNTER → 2021-02-09 07:28 | Outpatient (BNVA) | payer MEDICAID, SELFPAY | PROVIDERS: PCP Family Medicine; Visit Provider Nurse Practitioner Psychiatric/Mental Health | DX: F31.81 Bipolar II disorder (principal); F41.0 Panic disorder [episodic paroxysmal anxiety] | CPT/HCPCS: 99214 ==

== ENCOUNTER → 2021-02-18 08:09 | Outpatient (BNVA) | payer MEDICAID, SELFPAY | PROVIDERS: PCP Family Medicine; Visit Provider Counselor Professional | DX: F31.81 Bipolar II disorder (principal); F41.0 Panic disorder [episodic paroxysmal anxiety] | CPT/HCPCS: 90834 ==

== ENCOUNTER → 2021-03-04 08:19 | Outpatient (BNVA) | payer MEDICAID, SELFPAY | PROVIDERS: PCP Family Medicine; Visit Provider Counselor Professional | DX: F31.81 Bipolar II disorder (principal); F41.0 Panic disorder [episodic paroxysmal anxiety] | CPT/HCPCS: 90834 ==

== ENCOUNTER → 2021-03-16 07:23 | Outpatient (BNVA) | payer MEDICAID, SELFPAY | PROVIDERS: PCP Family Medicine; Visit Provider Nurse Practitioner Psychiatric/Mental Health | DX: F31.81 Bipolar II disorder (principal); F41.0 Panic disorder [episodic paroxysmal anxiety] | CPT/HCPCS: 99214 ==

== ENCOUNTER → 2021-04-26 08:00 | Outpatient (BNVA) | payer MEDICAID, SELFPAY | PROVIDERS: PCP Family Medicine; Visit Provider Specialist | DX: G43.711 Chronic migraine without aura, intractable, with status migrainosus (principal); R20.0 Anesthesia of skin; R20.2 Paresthesia of skin; M79.7 Fibromyalgia; G25.81 Restless legs syndrome; L40.50 Arthropathic psoriasis, unspecified; F31.81 Bipolar II disorder; F17.200 Nicotine dependence, unspecified, uncomplicated | CPT/HCPCS: 95909; 99215 ==

== ENCOUNTER 2021-04-27 09:56 | Outpatient (CLI) | payer MEDICAID, SELFPAY ==
[2021-04-27 11:32] LABS: C Reactive Protein 15.4 mg/L (0.0-4.9); Creatine Phosphokinase 106 U/L (26-192); Ferritin 46 ng/mL (15-150); Iron 46 ug/dL (37-145)
[2021-04-28 12:32] LABS: COMPLEMENT, TOTAL (CH50) >60 U/mL (31-60)
[2021-04-28 15:32] LABS: CENTROMERE B ANTIBODY <1.0 NEG AI (<1.0 NEG); JO-1 ANTIBODY <1.0 NEG AI (<1.0 NEG); RNP ANTIBODY <1.0 NEG AI (<1.0 NEG); SCL-70 ANTIBODY <1.0 NEG AI (<1.0 NEG); SJOGREN'S ANTIBODY (SS-A) <1.0 NEG AI (<1.0 NEG); SM ANTIBODY <1.0 NEG AI (<1.0 NEG); SS-B <1.0 NEG AI (<1.0 NEG)
[2021-04-29 15:28] LABS: COMPLEMENT COMPONENT C3C 225 mg/dL (83-193); COMPLEMENT COMPONENT C4C 32 mg/dL (15-57)
[2021-04-29 16:32] LABS: ANA SCREEN, IFA NEGATIVE (NEGATIVE)
[2021-05-03 15:17] LABS: THYROID PEROXIDASE ANTIBODIES 1 IU/mL (<9)
[2021-05-11 00:53] LABS: DNA AB (DS) CRITHIDIA,IFA NEGATIVE (NEGATIVE)
== END 2021-04-27 09:57 | disposition home or self-care (01) ==
LOC: LAB 10:01
PROVIDERS: PCP Family Medicine; Visit Provider Specialist
DX: R20.2 Paresthesia of skin (principal); R56.9 Unspecified convulsions
CPT/HCPCS: 36415; 82550; 82728; 83540; 86140; 86160; 86162; 86235; 86255; 86376

== ENCOUNTER 2021-04-30 15:00 | Outpatient (CLI) | payer MEDICAID, SELFPAY ==
--- NOTE | 2021-04-30 15:29 | XR_ITS ---
WS: [id number] Left knee, 3 views, 04/30/2021 Clinical Data: CHRONIC PAIN OF BOTH KNEES Comparison: None. Findings: No fractures or dislocations are seen. The joint spaces are normal. The patella is intact. The soft t issues are unremarkable. 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 Kellgren-Krzysztof Classification: grade 0 (none): definite absence of x-ray yareli nges of osteoarthritis
--- NOTE | 2021-04-30 15:29 | XR_ITS ---
WS: [id number] Right knee, 3 views, 04/30/2021 Clinical Data: CHRONIC PAIN OF BOTH KNEES Comparison: Right knee, 07/06/2007. Findings: No fractures or dislocations are seen. The joint spaces are normal. The patella is intact. The soft t issues are unremarkable. XR/XR knee RT 3V* [id number] Impression: Negative right knee. Kellgren-Krzysztof Classification: grade 0 (none): definite absence of x-ray yareli nges of osteoarthritis
[2021-04-30 15:52] LABS: Basophils # 0.1 10^3/uL (0.0-0.1); Basophils % 0.8 %; Eosinophils # 0.4 10^3/uL (0.0-0.8); Eosinophils % 3.8 %; Hematocrit 40.5 % (37.0-47.0); Hemoglobin 13.5 g/dL (11.5-15.3); Lymphocytes # 3.2 10^3/uL (0.8-4.8); Lymphocytes % 34.4 %; Mean Corpuscular HGB Conc 33.3 g/dL (30.0-36.0); Mean Corpuscular Hemoglobin 29.7 pg (28.0-34.0); Mean Platelet Volume 9.5 fL (7.4-10.4); Monocytes # 0.6 10^3/uL (0.2-0.9); Monocytes % 6.4 %; Neutrophils # 5.06 10^3/uL (1.8-7.7); Neutrophils % 54.3 %; Nucleated Red Blood Cells % 0 %; Platelet Count 455 10^3/cmm (130-400); Red Blood Count 4.55 10^6/uL (4.1-5.3); Red Cell Distribution Width 13.4 % (12.1-15.1); White Blood Count 9.3 10^3/uL (4.0-10.0)
[2021-04-30 16:14] LABS: Alanine Aminotransferase 16 U/L (0-33); Alkaline Phosphatase 83 IU/L (35-105); Aspartate Amino Transferase 14 U/L (0-32); C Reactive Protein 19.7 mg/L (0.0-4.9); Globulin 2.8 g/dL (1.3-4.6); Glomerular Filtration Rate 112.5 mL/min (90-130); Total Bilirubin 0.2 mg/dL (0.15-1.2); Total Protein 6.8 g/dL (6.6-8.7)
== END 2021-04-30 15:01 | disposition home or self-care (01) ==
PROVIDERS: PCP Family Medicine; Visit Provider Internal Medicine Rheumatology
DX: L40.50 Arthropathic psoriasis, unspecified (principal); Z71.89 Other specified counseling; Z79.899 Other long term (current) drug therapy
CPT/HCPCS: 73562; 80076; 82565; 85025; 86140

== ENCOUNTER → 2021-05-13 13:41 | Outpatient (BNVA) | payer MEDICAID, SELFPAY | PROVIDERS: PCP Family Medicine; Visit Provider Internal Medicine Rheumatology | DX: L40.59 Other psoriatic arthropathy (principal); L40.0 Psoriasis vulgaris; Z79.899 Other long term (current) drug therapy; M47.896 Other spondylosis, lumbar region; G43.011 Migraine without aura, intractable, with status migrainosus; F31.81 Bipolar II disorder; F41.0 Panic disorder [episodic paroxysmal anxiety]; M79.7 Fibromyalgia; F17.200 Nicotine dependence, unspecified, uncomplicated | CPT/HCPCS: 99214 ==

== ENCOUNTER → 2021-05-14 07:13 | Outpatient (BNVA) | payer MEDICAID, SELFPAY | PROVIDERS: PCP Family Medicine; Visit Provider Nurse Practitioner Psychiatric/Mental Health | DX: F31.81 Bipolar II disorder (principal); F41.0 Panic disorder [episodic paroxysmal anxiety] | CPT/HCPCS: 99214 ==

== ENCOUNTER → 2021-07-15 07:56 | Outpatient (BNVA) | payer MEDICAID, SELFPAY | PROVIDERS: PCP Family Medicine; Visit Provider Nurse Practitioner Psychiatric/Mental Health | DX: F31.81 Bipolar II disorder (principal); F41.0 Panic disorder [episodic paroxysmal anxiety] | CPT/HCPCS: 99214 ==

== ENCOUNTER → 2021-08-16 08:50 | Outpatient (BNVA) | payer MEDICAID, SELFPAY | PROVIDERS: PCP Family Medicine; Visit Provider Counselor Professional | DX: F31.81 Bipolar II disorder (principal); F41.0 Panic disorder [episodic paroxysmal anxiety] | CPT/HCPCS: 90834 ==

== ENCOUNTER → 2021-09-13 12:56 | Outpatient (BNVA) | payer MEDICAID, SELFPAY | PROVIDERS: PCP Family Medicine; Visit Provider Internal Medicine Rheumatology | DX: L40.59 Other psoriatic arthropathy (principal); M47.896 Other spondylosis, lumbar region; Z79.899 Other long term (current) drug therapy; Z71.89 Other specified counseling | CPT/HCPCS: 99214 ==

== ENCOUNTER 2021-09-27 06:58 | Emergency (ER) | payer MEDICAID, SELFPAY ==
[2021-09-27 07:10] VITALS: BP 163/115; PULSE 80; RESP 16; TEMP 36.6; O2SAT 97; BMI 48.4
--- NOTE | 2021-09-27 07:29 | ED_ITS ---
HPI - Headache General: Chief Complaint: Headache Stated Complaint: Migrain with Vomiting Time Seen by Provider: 09/27/21 07:11 History of Present Illness: HPI Narrative: 36 year old female presents to ER for migraine with vomiting. Reports history of migraines since 2007, sees a neurologist and reports that she has tried a lot of migraine medications which do not work. Current migraine with nausea and vomiting has been going on for around 12 hours. Reports this is similar to her previous migraines. Light, sound, and smell makes it worse. Has tried Ibuprofen, Benadryl, and Zofran but it hasn't helped. Tried Phenergan around 2 hours ago without relief. No numbness or tingling in arms, SOB, or chest pain. MD elicited complaint: headache Pertinent past history: migraines Onset (ago): hour(s) Quality & Timing: similar to previous headaches Exacerbating factors: light and noise Relieving factors: nothing Associated symptoms: Reports nausea, photophobia, sound sensitivity and vomiting; Deny chest pain, fever(s), neck stiffness, numbness, paresthesias, rash, short of breath or syncope Treatments prior to arrival: ibuprofen and antiemetic Review of Systems Const: Denies: fever(s) ENMT: Denies: throat pain, ear or mastoid pain, nasal discharge or nasal congestion Card: Denies: chest pain or syncope Resp: Denies: dyspnea, productive cough or non-productive cough GI: Reports: nausea and vomiting : Denies: flank pain, difficulty voiding, dysuria, urinary frequency or urinary urgency Skin/Breast: Denies: rash or pruritus PFSH ED PFSH: Medical History Bipolar II disorder Dx in 2005. History of Medications: [place] 300 mg twice per day and Lamictal 150 mg at bedtime Prozac 20 mg daily Note: Patient reports unable to tolerate higher dosages of [place] and Lamictal Chronic back pain High risk medication use Immunization counseling Leukocytosis, unspecified Long-term use of high-risk medication - Long-term narcotic use--currently on hydrocodone 7.5 mg taking 4-5 tablets per day. She is currently working with pain clinic to reduce her narcotic use. Continue management with pain clinic. 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 Treated with Benadryl and Zofran. 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 Family/Other Hypertension Paternal aunt, maternal uncle Stroke Paternal aunt, Maternal uncles x 2. Social History Smoking and tobacco status: current every day smoker (3-7 day) Quit status (tobacco): has quit using tobacco Year quit tobacco: 2019 Alcohol intake: never History of recent travel: No Additional social history: Well balanced diet Female Reproductive History: Date of last menstrual period: 10/25/20 Physical Exam Const: GENERAL APPEARANCE: cooperative and comfortable ORIENTATION/CONSCIOUSNESS: Yes awake, Yes oriented to person, Yes oriented to place and Yes oriented to time Eye: DIRECT OPHTHALMOSCOPY: Yes photophobia Resp: COMMON NORMALS: normal respiratory effort, No retractions, No use of accessory muscles and clear to auscultation bilaterally AUSCULTATION: clear to auscultation bilaterally Cardio: COMMON NORMALS: regular rate, regular rhythm and No murmurs present (Cardio) RATE: regular rate RHYTHM: regular rhythm GI: COMMON NORMALS: Soft to palpation PALPATION: Yes Soft to palpation, No Tenderness to palpation present (GI) and No Guarding due to palpation present (GI) Extremity: COMMON NORMALS: normal to inspection and capillary refill normal Neuro: SENSORIUM/ORIENTATION: Yes oriented to person, Yes oriented to place and Yes oriented to time Skin: COMMON NORMALS: no rashes or lesions noted GENERAL SKIN EXAM: no rashes or lesions noted Course Vital Signs: Vital signs: Vital Signs Temperature 97.8 F 09/27/21 07:10 Pulse Rate 67 09/27/21 08:39 Respiratory Rate 16 09/27/21 08:39 Blood Pressure 133/67 09/27/21 08:03 Pulse Oximetry 98 09/27/21 08:39 MDM - Headache MDM Narrative: Medical decision making narrative: Improvement in the headache with interventions completed in the emergency room. Patient feels well enough to go home she will continue to use Benadryl and ibuprofen and occasional promethazine at home for her headaches. We discussed headache prophylaxis encouraged to follow-up with primary care doctor or her neurologist in the next few weeks to discuss. Discharge Plan Discharge Patient Disposition: Home Clinical Impression: Migraines Condition: Stable Prescriptions: No Action cholecalciferol (vitamin D3) 1,000 unit capsule 1,000 unit PO BID RF: 0 multivitamin Tablet 1 tab PO QAM RF: 0 fluoxetine [Prozac] 20 mg capsule 20 mg PO .morning Qty: 30 RF: 6 [place] [employer] 125 mg/mL auto-injector 125 mg SUBCUT .Q7days Qty: 4 RF: 3 ondansetron HCl [Zofran] 4 mg tablet 4 mg PO Q4H PRN (Reason: nausea and vomiting) Qty: 30 RF: 1 gabapentin 100 mg capsule 100 mg PO TID RF: 0 diphenhydramine HCl [Benadryl] 25 mg capsule 25 mg PO Q6H PRN (Reason: Allergic Reaction) RF: 0 tizanidine 2 mg capsule 2 mg PO TID RF: 0 ibuprofen 800 mg tablet 800 mg PO TID RF: 0 ropinirole 0.25 mg tablet 0.25 mg PO BID Qty: 60 RF: 3 Chantix 1 mg tablet 1 mg PO BID RF: 0 omeprazole 40 mg capsule,delayed release(DR/EC) See Rx Instructions PO DAILY Qty: 30 RF: 3 diclofenac sodium 75 mg tablet,delayed release (DR/EC) 75 mg PO BID Qty: 30 RF: 1 prednisone 20 mg tablet See Rx Instructions PO .COMPLEX PRN (Reason: joint pain flare) Qty: 30 RF: 1 hydrocodone-acetaminophen 10-325 mg Tablet 1 tab PO Q4H PRN (Reason: Pain) RF: 0 Discharge Orders: Discharge ED (Routine); Ordered 09/27/21 Ordered By: Oz Sloan Referrals: Paulo Lomeli [Primary Care Provider] - Discharge Diet: Usual diet Discharge Activity: Resume usual activity Patient Instructions: Opioid Safety Activity Restrictions/Additional Instructions: Follow-up with your primary care doctor or your neurologist within the next 1 to 2 weeks. Return to the emergency room if any further problems. Coding Level of Care Code ED Director Of Social Services for Terry Fwkavita Exam Comprehensive
[2021-09-27] MEDS: sodium chloride 0.9% 1,000 ML 999 ML IV (07:40)
[2021-09-27] MEDS: ketorolac 30 mg/mL INJ IVP (07:41)
[2021-09-27] MEDS: diphenhydrAMINE 50 mg/mL SDV 1mL IVP (07:41)
[2021-09-27] MEDS: valproic acid inj 500 MG in sodium chloride 0.9% 50 ML 55 MG IV (07:42)
[2021-09-27 07:49] VITALS: PULSE 76; RESP 16; O2SAT 98
[2021-09-27 08:03] VITALS: BP 133/67
[2021-09-27 08:39] VITALS: PULSE 67; RESP 16; O2SAT 98
[2021-09-27 09:38] VITALS: BP 145/63; PULSE 75; RESP 16; O2SAT 97
== END 2021-09-27 10:08 | disposition home or self-care (01) ==
PROVIDERS: Emergency Provider Family Medicine; PCP Family Medicine
DX: G43.909 Migraine, unspecified, not intractable, without status migrainosus (principal); F17.210 Nicotine dependence, cigarettes, uncomplicated
CPT/HCPCS: 96361; 96374; 96375; 99284; J1200; J1885; J7030

== ENCOUNTER → 2021-10-27 07:29 | Outpatient (BNVA) | payer MEDICAID, SELFPAY | PROVIDERS: PCP Family Medicine; Visit Provider Nurse Practitioner Psychiatric/Mental Health | DX: F31.81 Bipolar II disorder (principal); F41.0 Panic disorder [episodic paroxysmal anxiety]; F17.210 Nicotine dependence, cigarettes, uncomplicated | CPT/HCPCS: 99214 ==

== ENCOUNTER → 2021-11-25 08:59 | Outpatient (BNVA) | payer MEDICAID, SELFPAY | PROVIDERS: PCP Family Medicine; Visit Provider Counselor Professional | DX: F31.81 Bipolar II disorder (principal); F41.0 Panic disorder [episodic paroxysmal anxiety] | CPT/HCPCS: 90834 ==

== ENCOUNTER → 2021-12-13 11:52 | Outpatient (BNVA) | payer MEDICAID, SELFPAY | PROVIDERS: PCP Family Medicine; Visit Provider Counselor Professional | DX: F31.81 Bipolar II disorder (principal); F41.0 Panic disorder [episodic paroxysmal anxiety] | CPT/HCPCS: 90834 ==

== ENCOUNTER → 2021-12-27 08:13 | Outpatient (BNVA) | payer MEDICAID, SELFPAY | PROVIDERS: PCP Family Medicine; Visit Provider Counselor Professional | DX: F31.81 Bipolar II disorder (principal); F41.0 Panic disorder [episodic paroxysmal anxiety] | CPT/HCPCS: 90834 ==

== ENCOUNTER → 2022-01-11 13:08 | Outpatient (BNVA) | payer MEDICAID, SELFPAY | PROVIDERS: PCP Family Medicine; Visit Provider Internal Medicine Rheumatology | DX: L40.50 Arthropathic psoriasis, unspecified (principal); L40.0 Psoriasis vulgaris; Z79.899 Other long term (current) drug therapy; L73.2 Hidradenitis suppurativa; G43.909 Migraine, unspecified, not intractable, without status migrainosus; Z71.89 Other specified counseling; F17.200 Nicotine dependence, unspecified, uncomplicated | CPT/HCPCS: 99214 ==

== ENCOUNTER → 2022-01-19 06:59 | Outpatient (BNVA) | payer MEDICAID, SELFPAY | PROVIDERS: PCP Family Medicine; Visit Provider Nurse Practitioner Psychiatric/Mental Health | DX: F31.81 Bipolar II disorder (principal); F41.0 Panic disorder [episodic paroxysmal anxiety] | CPT/HCPCS: 99214 ==

== ENCOUNTER → 2022-01-20 09:54 | Outpatient (BNVA) | payer MEDICAID, SELFPAY | PROVIDERS: PCP Family Medicine; Visit Provider Counselor Professional | DX: F31.81 Bipolar II disorder (principal); F41.0 Panic disorder [episodic paroxysmal anxiety] | CPT/HCPCS: 90834 ==

== ENCOUNTER → 2022-01-25 10:56 | Outpatient (BNVA) | payer MEDICAID, SELFPAY | PROVIDERS: PCP Family Medicine; Visit Provider Counselor Professional | DX: F31.81 Bipolar II disorder (principal); F41.0 Panic disorder [episodic paroxysmal anxiety] | CPT/HCPCS: 90834 ==

== ENCOUNTER → 2022-02-08 12:57 | Outpatient (BNVA) | payer MEDICAID, SELFPAY | PROVIDERS: PCP Family Medicine; Visit Provider Counselor Professional | DX: F31.81 Bipolar II disorder (principal); F41.0 Panic disorder [episodic paroxysmal anxiety] | CPT/HCPCS: 90834 ==

== ENCOUNTER → 2022-02-22 09:57 | Outpatient (BNVA) | payer MEDICAID, SELFPAY | PROVIDERS: PCP Family Medicine; Visit Provider Counselor Professional | DX: F31.81 Bipolar II disorder (principal); F41.0 Panic disorder [episodic paroxysmal anxiety] | CPT/HCPCS: 90834 ==

== ENCOUNTER → 2022-03-08 09:57 | Outpatient (BNVA) | payer MEDICAID, SELFPAY | PROVIDERS: PCP Family Medicine; Visit Provider Counselor Professional | DX: F31.81 Bipolar II disorder (principal); F41.0 Panic disorder [episodic paroxysmal anxiety] | CPT/HCPCS: 90834 ==

== ENCOUNTER → 2022-05-10 09:19 | Outpatient (BNVA) | payer MEDICAID, SELFPAY | PROVIDERS: PCP Family Medicine; Visit Provider Internal Medicine Rheumatology | DX: L40.59 Other psoriatic arthropathy (principal); G43.909 Migraine, unspecified, not intractable, without status migrainosus; Z79.899 Other long term (current) drug therapy; Z87.2 Personal history of diseases of the skin and subcutaneous tissue; M47.896 Other spondylosis, lumbar region; Z72.0 Tobacco use | CPT/HCPCS: 36415; 80076; 82565; 85025; 86140; 99214 ==

== ENCOUNTER → 2022-08-08 11:23 | Outpatient (BNVA) | payer MEDICAID, SELFPAY | PROVIDERS: PCP Family Medicine; Visit Provider Internal Medicine Rheumatology | DX: L40.50 Arthropathic psoriasis, unspecified (principal); Z79.899 Other long term (current) drug therapy; Z71.89 Other specified counseling; D89.40 Mast cell activation, unspecified; Z87.2 Personal history of diseases of the skin and subcutaneous tissue; Z72.0 Tobacco use; M47.896 Other spondylosis, lumbar region | CPT/HCPCS: 99214 ==

== ENCOUNTER 2022-10-22 18:04 | Emergency (ER) | payer MEDICAID, SELFPAY ==
[2022-10-22 18:09] VITALS: BP 139/88; PULSE 85; RESP 18; TEMP 36.9; O2SAT 95
--- NOTE | 2022-10-22 19:28 | W.ED.HA ---
Documented by User: CHARLY High 10/22/22 21:49 HPI - Headache General: Chief Complaint: Headache Stated Complaint: migraine, n/v Time Seen by Provider: 10/22/22 18:58 History of Present Illness: Patient is a 37-year-old female that presents to the emergency department with complaint of migraine. Patient reports she has had a migraine for 10 days and is actually seen her neurologist. She was given a dose of Ubrelvy and her migraine seemed to improve but has returned. Patient has associated photophobia and vomiting. She has taken her usual oral medications including Zofran but without relief. Associated symptoms: Deny chest pain, confusion, fever(s), malaise, nausea, rash or vomiting Review of Systems General: Reports: 10 or more systems reviewed and unremarkable except in HPI and below Const: Denies: fever(s), chills, change in appetite, change in weight, fatigue or malaise Eyes: Denies: change in vision, eye discomfort, eye discharge or eye redness ENMT: Denies: throat pain, enlarged tonsils, odynophagia, hoarseness, ear or mastoid pain, ear discharge, change in hearing, tinnitus, nasal discharge, nasal congestion, post nasal drip or sinus pain Card: Denies: chest pain, palpitations, irregular heart rhythm, edema, dyspnea on exertion, orthopnea or leg pain with exertion Resp: Denies: dyspnea, productive cough, non-productive cough, wheezing, stridor or chest congestion GI: Denies: abdominal pain, nausea, vomiting, dysphagia, diarrhea, constipation, bloating, GI cramping or hematochezia : Denies: flank pain, difficulty voiding, dysuria, urinary frequency, urinary urgency, urinary hesitancy, oliguria or hematuria Musc: Denies: neck pain, back pain, extremity pain, joint pain, joint swelling, joint redness, joint warmth or muscle weakness Skin/Breast: Denies: rash, pruritus, erythema, photosensitivity or new lesions Neuro: Reports: headache(s) (Associated with photophobia and vomiting); Denies: numbness in extremities, weakness in extremities, sensory changes, lack of coordination, difficulty walking, frequent falls, dizziness, confusion, Slurred speech present, difficulty communicating thoughts, seizure-like activity or involuntary movements Endo: Denies: polyuria, polydipsia or tired all the time Spencer/Lymph: Denies: easy bruising or easy bleeding PFS ED PFSH: Medical History (Updated 10/22/22 @ 21:48 by CHARLY High) Bipolar II disorder Dx in 2005. History of Medications: [place] 300 mg twice per day and Lamictal 150 mg at bedtime Prozac 20 mg daily Note: Patient reports unable to tolerate higher dosages of [place] and Lamictal Chronic back pain Cigarette nicotine dependence Hidradenitis suppurativa High risk medication use Immunization counseling Leukocytosis, unspecified Long-term use of high-risk medication - Long-term narcotic use--currently on hydrocodone 7.5 mg taking 4-5 tablets per day. She is currently working with pain clinic to reduce her narcotic use. Continue management with pain clinic. 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 Treated with Benadryl and Zofran. 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 Family/Other Hypertension Paternal aunt, maternal uncle Stroke Paternal aunt, Maternal uncles x 2. Social History Smoking and tobacco status: current every day smoker Quit status (tobacco): has quit using tobacco Year quit tobacco: 2019 Alcohol intake: never History of recent travel: No Additional social history: Well balanced diet Female Reproductive History: Date of last menstrual period: 10/25/20 Physical Exam Const: COMMON NORMALS: no acute distress, patient oriented x3 and alert GENERAL APPEARANCE: cooperative ORIENTATION/CONSCIOUSNESS: Yes awake, Yes oriented to person, Yes oriented to place and Yes oriented to time HENMT: COMMON NORMALS: normocephalic and atraumatic HEAD & SCALP: normocephalic and atraumatic FACE & SINUS: normal facial exam MOUTH: Normal oral and palatal mucosa present THROAT: posterior oropharynx normal Eye: COMMON NORMALS: Equal, round and reactive pupils present, EOMs intact bilaterally, conjunctivae normal and no scleral icterus GENERAL EYE: appearance normal, both eyes and all related structures ALIGNMENT: Yes alignment normal PERIORBITAL: periorbital findings normal CONJUNCTIVA: Yes conjunctivae normal PUPIL: Yes Equal, round and reactive pupils present Neck/C-Spine: COMMON NORMALS: full ROM GENERAL: Yes normal visual inspection Lymph: LYMPHATIC: no lymphadenopathy noted Chest: COMMONS NORMALS: normal inspection of the chest Breast/axilla inspection: Yes no chest deformity, asymmetry, normal contours, no nodules, masses, tenderness Resp: COMMON NORMALS: normal respiratory effort, No retractions, No use of accessory muscles and clear to auscultation bilaterally EFFORT & INSPECTION: Yes able to speak in complete sentences and Yes symmetric chest movement AUSCULTATION: clear to auscultation bilaterally Cardio: COMMON NORMALS: regular rate, regular rhythm and Peripheral pulses 2+ throughout RATE: regular rate RHYTHM: regular rhythm PERIPHERAL PULSES: Peripheral pulses 2+ throughout GI: COMMON NORMALS: Normal to inspection, nondistended, normoactive bowel sounds present, Soft to palpation, non-tender and No hepatosplenomegaly present INSPECTION: Yes normal to inspection AUSCULTATION: Yes normoactive bowel sounds PALPATION: Yes Soft to palpation and Yes No hepatosplenomegaly present RECTAL EXAM: deferred Extremity: COMMON NORMALS: normal to inspection GENERAL: Yes normal exam except as noted Neuro: COMMON NORMALS: patient oriented x3 SENSORIUM/ORIENTATION: Yes alert, Yes oriented to person, Yes oriented to place and Yes oriented to time CRANIAL NERVES: Yes CN normal except as noted Psych: COMMON NORMALS: mental status grossly normal, Normal thought process present, cooperative, activity/motor behavior normal, denies homicidal ideation and denies suicidal ideation THOUGHT PROCESS: Normal thought process present Skin: COMMON NORMALS: no rashes or lesions noted, no wounds and turgor normal GENERAL SKIN EXAM: no rashes or lesions noted and turgor normal Course Vital Signs: Vital signs: Vital Signs Temperature 98.4 F 10/22/22 18:09 Pulse Rate 85 10/22/22 18:09 Respiratory Rate 18 10/22/22 18:09 Blood Pressure 139/88 10/22/22 18:09 Pulse Oximetry 95 10/22/22 18:09 Oxygen Delivery Me thod 10/22/22 18:09 MDM - Headache Medical Decision Making Patient was evaluated in the emergency department for 10-day history of migraine. Has been seen by her neurologist but rebound headache. Here in the emergency department she was given Toradol, Decadron, Compazine. Symptoms have greatly improved. Also given the patient a liter of fluid due to excessive vomiting. At this time I do not believe any diagnostics are warranted. Patient has further follow-up with neurologist this week for ongoing treatment of migraines. I will discharge patient home on Toradol and Compazine, and she should continue taking Benadryl. All questions answered in detail Discharge Plan Discharge Patient Disposition: Home Clinical Impression: Migraines Condition: Stable Prescriptions: New Compro 25 mg suppository 25 mg MA BID PRN (Reason: nausea and vomiting) 5 Days Qty: 12 0RF ketorolac 10 mg tablet 10 mg PO TID PRN (Reason: pain) 5 Days Qty: 20 0RF Rx Instructions: Do not take additional nonsteroidal anti-inflammatory drugs. No Action cholecalciferol (vitamin D3) 1,000 unit capsule 1,000 unit PO BID multivitamin Tablet 1 tab PO QAM gabapentin 100 mg capsule 200 mg PO TID diphenhydramine HCl [Benadryl] 25 mg capsule 25 mg PO Q6H PRN (Reason: Allergic Reaction) tizanidine 2 mg capsule See Rx Instructions PO TID Rx Instructions: take 2 in am and 2 at noon and 4 at bedtime PO three times daily; Take one capsule in am, one capsule at noon, and two capsules at bedtime ropinirole 0.25 mg tablet 0.25 mg PO BID Qty: 60 3RF ibuprofen 800 mg tablet 800 mg PO TID PRN Ubrelvy 50 mg tablet 50 mg PO PRN cetirizine [Zyrtec] 10 mg tablet 10 mg PO DAILY Orencia ClickJect 125 mg/mL auto-injector See Rx Instructions .ROUTE .COMPLEX Qty: 4 3RF Dose Instruction: inject 125mg SUBCUTANEOUSLY EVERY 7 DAYS Rx Instructions: inject 125mg SUBCUTANEOUSLY EVERY 7 DAYS ondansetron HCl 4 mg tablet See Rx Instructions .ROUTE .COMPLEX Dose Instruction: TAKE 1 TABLET BY MOUTH EVERY 4 HOURS NEEDED FOR NAUSEA AND VOMITING Rx Instructions: TAKE 1 -2 TABLETS BY MOUTH EVERY 4 HOURS NEEDED FOR NAUSEA AND VOMITING fluoxetine [Prozac] 40 mg capsule 40 mg PO QAM Qty: 90 1RF Rx Instructions: Take one capsule every morning hydroxyzine pamoate [Vistaril] 50 mg capsule 50 mg PO DAILY PRN (Reason: anxiety) Qty: 90 2RF Rx Instructions: Take one capsule daily as needed for anxiety prednisone 20 mg tablet See Rx Instructions .ROUTE .COMPLEX Qty: 30 1RF Dose Instruction: TAKE 1 TABLET BY MOUTH EVERY DAY FOR 5-7 DAYS NEEDED FOR JOINT PAIN FLARE Rx Instructions: TAKE 1 TABLET BY MOUTH EVERY DAY FOR 5-7 DAYS NEEDED FOR JOINT PAIN FLARE hydrocodone-acetaminophen 10-325 mg Tablet 1 tab PO Q4H PRN (Reason: Pain) Rx Instructions: SEE PHARMACY COMMENT Discharge Orders: Discharge ED (Routine); Ordered 10/22/22 Ordered By: Jennifer Howe Referrals: Paulo Lomeli [Primary Care Provider] - Discharge Diet: Advance as tolerated Discharge Activity: Resume usual activity Patient Instructions: Migraine Headache (ED), Acute Headache (ED), Opioid Safety, Pain Management Activity Restrictions/Additional Instructions: Please use medications as prescribed. While taking Compazine which I have given you in a rectal suppository form, do not take additional antiemetics like Zofran. While taking ketorolac, Toradol, do not take additional nonsteroidal anti-inflammatory drugs. Please follow-up with your neurologist as previously planned Please return to the emergency department for new concerning or worsening symptoms. Coding Level of Care Code ED Materials Technician for Chg Fwd Documented by User: Oz Sloan DO 10/25/22 06:30 HPI - Headache General: Chief Complaint: Headache Stated Complaint: migraine, n/v Time Seen by Provider: 10/22/22 18:58 PFSH ED PFSH: Medical History (Updated 10/22/22 @ 21:48 by CHARLY High) Bipolar II disorder Dx in 2005. History of Medications: [place] 300 mg twice per day and Lamictal 150 mg at bedtime Prozac 20 mg daily Note: Patient reports unable to tolerate higher dosages of [place] and Lamictal Chronic back pain Cigarette nicotine dependence Hidradenitis suppurativa High risk medication use Immunization counseling Leukocytosis, unspecified Long-term use of high-risk medication - Long-term narcotic use--currently on hydrocodone 7.5 mg taking 4-5 tablets per day. She is currently working with pain clinic to reduce her narcotic use. Continue management with pain clinic. 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 Treated with Benadryl and Zofran. 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 Family/Other Hypertension Paternal aunt, maternal uncle Stroke Paternal aunt, Maternal uncles x 2. Social History Smoking and tobacco status: current every day smoker Quit status (tobacco): has quit using tobacco Year quit tobacco: 2020 Alcohol intake: never History of recent travel: No Additional social history: Well balanced diet Course Vital Signs: Vital signs: Vital Signs Temperature 98.4 F 10/22/22 18:09 Pulse Rate 85 10/22/22 18:09 Respiratory Rate 18 10/22/22 18:09 Blood Pressure 139/88 10/22/22 18:09 Pulse Oximetry 95 10/22/22 18:09 Oxygen Delivery Me thod 10/22/22 18:09 MDM - Headache Medical Decision Making Patient was evaluated in the emergency department for 10-day history of migraine. Has been seen by her neurologist but rebound headache. Here in the emergency department she was given Toradol, Decadron, Compazine. Symptoms have greatly improved. Also given the patient a liter of fluid due to excessive vomiting. At this time I do not believe any diagnostics are warranted. Patient has further follow-up with neurologist this week for ongoing treatment of migraines. I will discharge patient home on Toradol and Compazine, and she should continue taking Benadryl. All questions answered in detail Chart reviewed and patient discussed with midlevel. Agree with assessment and plan. Discharge Plan Discharge Patient Disposition: Home Clinical Impression: Migraines Condition: Stable Prescriptions: New [place]pro 25 mg suppository 25 mg MA BID PRN (Reason: nausea and vomiting) 5 Days Qty: 12 0RF ketorolac 10 mg tablet 10 mg PO TID PRN (Reason: pain) 5 Days Qty: 20 0RF Rx Instructions: Do not take additional nonsteroidal anti-inflammatory drugs. No Action cholecalciferol (vitamin D3) 1,000 unit capsule 1,000 unit PO BID multivitamin Tablet 1 tab PO QAM gabapentin 100 mg capsule 200 mg PO TID diphenhydramine HCl [Benadryl] 25 mg capsule 25 mg PO Q6H PRN (Reason: Allergic Reaction) tizanidine 2 mg capsule See Rx Instructions PO TID Rx Instructions: take 2 in am and 2 at noon and 4 at bedtime PO three times daily; Take one capsule in am, one capsule at noon, and two capsules at bedtime ropinirole 0.25 mg tablet 0.25 mg PO BID Qty: 60 3RF ibuprofen 800 mg tablet 800 mg PO TID PRN Ubrelvy 50 mg tablet 50 mg PO PRN cetirizine [Zyrtec] 10 mg tablet 10 mg PO DAILY Orencia ClickJect 125 mg/mL auto-injector See Rx Instructions .ROUTE .COMPLEX Qty: 4 3RF Dose Instruction: inject 125mg SUBCUTANEOUSLY EVERY 7 DAYS Rx Instructions: inject 125mg SUBCUTANEOUSLY EVERY 7 DAYS ondansetron HCl 4 mg tablet See Rx Instructions .ROUTE .COMPLEX Dose Instruction: TAKE 1 TABLET BY MOUTH EVERY 4 HOURS NEEDED FOR NAUSEA AND VOMITING Rx Instructions: TAKE 1 -2 TABLETS BY MOUTH EVERY 4 HOURS NEEDED FOR NAUSEA AND VOMITING fluoxetine [Prozac] 40 mg capsule 40 mg PO QAM Qty: 90 1RF Rx Instructions: Take one capsule every morning hydroxyzine pamoate [Vistaril] 50 mg capsule 50 mg PO DAILY PRN (Reason: anxiety) Qty: 90 2RF Rx Instructions: Take one capsule daily as needed for anxiety prednisone 20 mg tablet See Rx Instructions .ROUTE .COMPLEX Qty: 30 1RF Dose Instruction: TAKE 1 TABLET BY MOUTH EVERY DAY FOR 5-7 DAYS NEEDED FOR JOINT PAIN FLARE Rx Instructions: TAKE 1 TABLET BY MOUTH EVERY DAY FOR 5-7 DAYS NEEDED FOR JOINT PAIN FLARE hydrocodone-acetaminophen 10-325 mg Tablet 1 tab PO Q4H PRN (Reason: Pain) Rx Instructions: SEE PHARMACY COMMENT Discharge Orders: Discharge ED (Routine); Ordered 10/22/22 Ordered By: Jennifer Howe Referrals: Paulo Lomeli [Primary Care Provider] - Discharge Diet: Advance as tolerated Discharge Activity: Resume usual activity Patient Instructions: Migraine Headache (ED), Acute Headache (ED), Opioid Safety, Pain Management Activity Restrictions/Additional Instructions: Please use medications as prescribed. While taking Compazine which I have given you in a rectal suppository form, do not take additional antiemetics like Zofran. While taking ketorolac, Toradol, do not take additional nonsteroidal anti-inflammatory drugs. Please follow-up with your neurologist as previously planned Please return to the emergency department for new concerning or worsening symptoms. Coding Level of Care Code ED Materials Technician for Terry Pedroza
[2022-10-22] MEDS: dexamethasone 10 mg/mL INJ 6 MG IVP (19:40)
[2022-10-22] MEDS: diphenhydrAMINE 50 mg/mL SDV 1mL IVP (19:40)
[2022-10-22] MEDS: ketorolac 30 mg/mL INJ IVP (19:40)
[2022-10-22] MEDS: prochlorperazine 10 mg/2 mL Inj IVP (19:40)
[2022-10-22] MEDS: sodium chloride 0.9% 1,000 ML 999 ML IV (19:41)
[2022-10-22] MEDS: haloperidol inj 5 mg/mL INJ 1 mL IVP (19:41)
== END 2022-10-22 22:06 | disposition home or self-care (01) ==
PROVIDERS: Emergency Provider Nurse Practitioner; PCP Family Medicine
DX: G43.909 Migraine, unspecified, not intractable, without status migrainosus (principal); F17.210 Nicotine dependence, cigarettes, uncomplicated
CPT/HCPCS: 96361; 96374; 96375; 99285; J0780; J1100; J1200; J1630; J1885; J7030

== ENCOUNTER → 2022-11-15 11:12 | Outpatient (BNVA) | payer MEDICAID, SELFPAY | PROVIDERS: PCP Family Medicine; Visit Provider Internal Medicine Rheumatology | DX: L40.50 Arthropathic psoriasis, unspecified (principal); Z79.899 Other long term (current) drug therapy; Z71.89 Other specified counseling | CPT/HCPCS: 36415; 80076; 82565; 85025; 86140; 99214 ==

== ENCOUNTER → 2023-03-29 12:58 | Outpatient (BNVA) | payer MEDICAID, SELFPAY | PROVIDERS: PCP Family Medicine; Visit Provider Internal Medicine Rheumatology | DX: L40.0 Psoriasis vulgaris (principal); Z79.899 Other long term (current) drug therapy; M62.838 Other muscle spasm; L40.50 Arthropathic psoriasis, unspecified; Z71.89 Other specified counseling | CPT/HCPCS: 36415; 80076; 82310; 82565; 83735; 84100; 84132; 85025; 86140; 99214 ==

== ENCOUNTER → 2023-09-20 10:27 | Outpatient (BNVA) | payer MEDICAID, SELFPAY | PROVIDERS: PCP Family Medicine; Visit Provider Internal Medicine Rheumatology | DX: Z79.899 Other long term (current) drug therapy (principal); L40.50 Arthropathic psoriasis, unspecified; Z71.89 Other specified counseling; L40.0 Psoriasis vulgaris | CPT/HCPCS: 36415; 80076; 82565; 85025; 86140; 99214 ==

== ENCOUNTER → 2023-12-04 11:41 | Outpatient (BNVA) | payer MEDICAID, SELFPAY | PROVIDERS: PCP Family Medicine; Visit Provider Nurse Practitioner Psychiatric/Mental Health | DX: Z79.899 Other long term (current) drug therapy (principal) | CPT/HCPCS: 80053; 80178; 84443 ==

== ENCOUNTER → 2023-12-11 14:52 | Outpatient (BNVA) | payer MEDICAID, SELFPAY | PROVIDERS: PCP Family Medicine; Visit Provider Nurse Practitioner Family | DX: L73.2 Hidradenitis suppurativa (principal); L40.59 Other psoriatic arthropathy; L40.0 Psoriasis vulgaris; L72.0 Epidermal cyst; D22.5 Melanocytic nevi of trunk | CPT/HCPCS: 99204 ==

== ENCOUNTER → 2024-01-24 10:28 | Outpatient (BNVA) | payer MEDICAID, SELFPAY | PROVIDERS: PCP Family Medicine; Visit Provider Internal Medicine Rheumatology | DX: Z79.899 Other long term (current) drug therapy (principal); L40.0 Psoriasis vulgaris; L40.50 Arthropathic psoriasis, unspecified; Z71.89 Other specified counseling | CPT/HCPCS: 36415; 80076; 82565; 85025; 86140; 99214 ==

== ENCOUNTER → 2024-02-08 10:17 | Outpatient (BNVA) | payer MEDICAID, SELFPAY | PROVIDERS: PCP Family Medicine; Visit Provider Dermatology | DX: D48.5 Neoplasm of uncertain behavior of skin (principal) | CPT/HCPCS: 11442; 12052 ==

== ENCOUNTER → 2024-02-19 11:07 | Outpatient (BNVA) | payer OTHER, SELFPAY | PROVIDERS: PCP Family Medicine; Visit Provider Dermatology | DX: Z48.02 Encounter for removal of sutures (principal) | CPT/HCPCS: 99212; 99398 ==

== ENCOUNTER 2024-04-09 06:00 | Outpatient (CLI) | payer MEDICAID, SELFPAY | END 2024-04-09 06:01 | disposition home or self-care (01) | PROVIDERS: PCP Family Medicine; Visit Provider Psychiatry & Neurology Neurology | DX: G43.711 Chronic migraine without aura, intractable, with status migrainosus (principal); M79.7 Fibromyalgia; R20.2 Paresthesia of skin; R56.9 Unspecified convulsions | CPT/HCPCS: 86780 ==

== ENCOUNTER → 2024-04-09 07:34 | Outpatient (BNVA) | payer MEDICAID, SELFPAY | PROVIDERS: PCP Family Medicine; Visit Provider Psychiatry & Neurology Neurology | DX: R20.2 Paresthesia of skin (principal); R25.1 Tremor, unspecified; R20.0 Anesthesia of skin; M54.2 Cervicalgia; G51.8 Other disorders of facial nerve; H57.10 Ocular pain, unspecified eye | CPT/HCPCS: 99203 ==

== ENCOUNTER 2024-05-10 07:15 | Outpatient (CLI) | payer MEDICAID, SELFPAY ==
--- NOTE | 2024-05-10 07:15 | MR_ITS ---
WS: [id number] MRI BRAIN WITH AND WITHOUT CONTRAST HISTORY: G43.711 - Chronic migraine without aura, intractable, wit... COMPARISON: None available. TECHNIQUE: Multiplanar imaging performed through the brain with MultiHance 20 ml's IV. No acute infarcts are seen. Anne-white matter differentiation is well preserved. No susceptibility artifacts or prior lacunar infarcts. Normal hippocampal formations. Ventricles and extra-axial spaces are normal. Clivus and pituitary gland are normal. Visualized posterior fossa and brainstem are also normal. Postcontrast images are negative for masses or vascular malformations. Dural venous sinuses are normal. Paranasal sinuses: Mild mucoperiosteal thickening and secretions in the maxillary sinuses. Mastoid air cells: Normal. Calvarium and scalp: Normal. MR/MR head wo/w con [id number] IMPRESSION: 1. No acute infarct or prior infarct. 2. No volume loss. 3. No evidence for demyelination. 4. No enhancing masses. 5. Normal hippocampal formations.
[2024-05-10] MEDS: gadobenate dimeglumine 20 mL vial IV (08:57)
--- NOTE | 2024-05-10 11:45 | MR_ITS ---
WS: [id number] MRI CERVICAL SPINE with and without contrast HISTORY: G43.711 - Chronic migraine without aura, intractable, wit... COMPARISON: None available. Technique: Multiplanar, multisequence noncontrast imaging of the cervical spine. Postcontrast MultiHa nce. Normal cervical alignment with no compression fracture or significant disc space narrowing. Mild ectopia of the cerebellar tonsils. No Chiari malformation. No signal abnormality within the cord . No cord atrophy or enlargement. Craniocervical junction, C1 and C2 relationship, odontoid process and soft tissues are normal. C2-C3: Normal. C3-C4: Normal. C4-C5: Normal. C5-C6: Normal. C6-C7: Normal. C7-T1: Normal. Paraspinal soft tissue are normal. No discitis or osteomyelitis or demyelinating lesions. MR/MR cervical spine wo/w [id number] IMPRESSION: Normal MRI C-spine with and without contrast.
== END 2024-05-10 07:20 | disposition home or self-care (01) ==
PROVIDERS: PCP Family Medicine; Visit Provider Psychiatry & Neurology Neurology
DX: G43.711 Chronic migraine without aura, intractable, with status migrainosus (principal)
CPT/HCPCS: 36415; 70553; 72156; 82306; 82607; 82746; 83090; 83735; 83921; 84425; 84591; 86592; A9577

== ENCOUNTER → 2024-07-22 13:49 | Outpatient (BNVA) | payer MEDICAID, SELFPAY | PROVIDERS: PCP Family Medicine; Visit Provider Nurse Practitioner Family | DX: L81.4 Other melanin hyperpigmentation (principal); D22.39 Melanocytic nevi of other parts of face; L57.8 Other skin changes due to chronic exposure to nonionizing radiation; L73.2 Hidradenitis suppurativa | CPT/HCPCS: 11900; 99213 ==

== ENCOUNTER → 2024-08-20 15:00 | Outpatient (BNVA) | payer OTHER, SELFPAY | PROVIDERS: PCP Family Medicine; Visit Provider Nurse Practitioner Family | DX: L73.2 Hidradenitis suppurativa (principal); L40.59 Other psoriatic arthropathy; L40.0 Psoriasis vulgaris; L81.4 Other melanin hyperpigmentation; D22.39 Melanocytic nevi of other parts of face; L57.8 Other skin changes due to chronic exposure to nonionizing radiation | CPT/HCPCS: 99214 ==

== ENCOUNTER → 2024-09-23 14:26 | Outpatient (BNVA) | payer MEDICAID, SELFPAY | PROVIDERS: PCP Family Medicine; Visit Provider Psychiatry & Neurology Neurology | DX: G51.8 Other disorders of facial nerve (principal); H57.10 Ocular pain, unspecified eye; M54.2 Cervicalgia; M54.9 Dorsalgia, unspecified; R20.0 Anesthesia of skin; R20.2 Paresthesia of skin; R56.9 Unspecified convulsions; M48.061 Spinal stenosis, lumbar region without neurogenic claudication; R25.1 Tremor, unspecified | CPT/HCPCS: 99212 ==

== ENCOUNTER 2024-09-24 10:30 | Outpatient (CLI) | payer MEDICAID, SELFPAY ==
[2024-09-24 11:55] LABS: Free T4 Free Thyroxine 1.28 ng/dL (0.82-1.77); T3 Free 2.8 PG/ML (2.0-4.4); Thyroid Stimulating Hormone 1.51 uIU/mL (0.27-4.20)
[2024-09-24 12:44] LABS: 25 Hydroxy Vitamin D 29 ng/mL (30-100)
== END 2024-09-24 10:31 | disposition home or self-care (01) ==
PROVIDERS: PCP Family Medicine; Visit Provider Psychiatry & Neurology Neurology
DX: G51.8 Other disorders of facial nerve (principal); H57.10 Ocular pain, unspecified eye; M54.2 Cervicalgia; M54.9 Dorsalgia, unspecified; R20.0 Anesthesia of skin; R20.2 Paresthesia of skin
CPT/HCPCS: 36415; 82306; 84439; 84443; 84481; 86337; 86341; 86376; 86800; 87798

== ENCOUNTER 2024-10-04 12:50 | Outpatient (CLI) | payer MEDICAID, SELFPAY ==
--- NOTE | 2024-10-04 13:00 | MR_ITS ---
WS: [id number] MRI LUMBAR SPINE WITH CONTRAST TECHNIQUE: Sagittal T1, T2 and STIR imaging. Axial T1 and T2 imaging. Post gadolinium imaging was obt ained. CLINICAL INFORMATION: M48.061 - Spinal stenosis, lumbar region without neurogen... COMPARISON: MRI 2013. FINDINGS: Mild lumbar curve. No acute compression. No high-grade central canal stenosis. Disc desiccation L5-S1 progressed since 2013 with mild disc bulging and endplate degenerative changes. L1-L2: Mild facet arthropathy. Spinal canal and foramen are patent. L2-L3: No significant disc bulging. Mild facet arthropathy. Spinal canal and foramen are patent. L3-L4: Mild annular bulging. Moderate facet arthropathy. Spinal canal is patent. Mild LEFT foraminal narrowing with a tiny foraminal protrusion. RIGHT foramen is patent. L4-L5: Mild annular bulging with slight effacement of the ventral thecal sac. Moderate facet arthropa thy. Small LEFT foraminal protrusion slightly impinges the exiting LEFT L4 nerve root. This is progre ssed compared to previous. RIGHT foramen is patent. L5-S1: Progressed disc desiccation. Eccentric LEFT greater than RIGHT disc bulging slightly impinges the exiting LEFT greater than RIGHT L5 nerve roots. This is also progressed compared to previous. Mod erate facet arthropathy. Slight effacement of the ventral thecal sac. No abnormal gadolinium enhancement. No enhancing lesions in the lower thoracic cord. Visualized pelvic bony structures: Normal. Paravertebral soft tissues: Normal. MR/MR lumbar spine wo/w con [id number] IMPRESSION: 1. Progressed disc desiccation L5-S1 with eccentric disc bulging LEFT greater than RIGHT. Slight impingement on the exiting LEFT greater than RIGHT L5 nerve roots. 2. Small LEFT foraminal protrusion L4-5 progressed compared to previous with s light contact of the exiting LEFT L4 nerve root. Mild annular bulging at this l evel. 3. Mild LEFT L3-4 foraminal narrowing with a tiny LEFT foraminal protrusion. 4. Moderate facet arthropathy L4-L5 and L5-S1. 5. No enhancing lesions in the lower thoracic cord or cauda equina.
--- NOTE | 2024-10-04 13:45 | MR_ITS ---
WS: [id number] MRI THORACIC SPINE WITH CONTRAST TECHNIQUE: Sagittal T1, T2 and STIR imaging. Axial T2 imaging. Post gadolinium imaging was obtained. CLINICAL INFORMATION: G51.8 - Other disorders of facial nerve COMPARISON: None. FINDINGS: Mild thoracic curve. Mild thoracic kyphosis. No acute compression. No high-grade central canal stenos is. Cord signal is normal. No abnormal gadolinium enhancement. No visualized demyelinating lesions in the thoracic cord. No enhancing lesions. No significant cord atrophy. Partially visualized small RIGHT renal cyst. Normal caliber thoracic aorta. A few tiny disc protrusio ns in the midthoracic spine at T6-T7 and T7-T8 without significant spinal canal or foraminal narrowin g. Mild facet arthropathy lower thoracic spine. No other acute findings. MR/MR thoracic spine wo/w [id number] IMPRESSION: 1. Cord signal is normal. No visualized demyelinating lesions in the thoracic cord considering mild motion artifact. 2. No abnormal gadolinium enhancement. No cord atrophy. 3. A few tiny disc protrusions at T6-T7 and T7-T8 without significant spinal c anal or foraminal narrowing. 4. No other acute findings.
[2024-10-04] MEDS: gadobenate dimeglumine 20 mL vial IV (14:13)
== END 2024-10-04 12:51 | disposition home or self-care (01) ==
LOC: RAD 12:51
PROVIDERS: PCP Family Medicine; Visit Provider Psychiatry & Neurology Neurology
DX: M48.061 Spinal stenosis, lumbar region without neurogenic claudication (principal); G51.8 Other disorders of facial nerve; H57.10 Ocular pain, unspecified eye; R20.0 Anesthesia of skin; R20.2 Paresthesia of skin; M51.379 Other intervertebral disc degeneration, lumbosacral region without mention of lumbar back pain or lower extremity pain; R93.89 Abnormal findings on diagnostic imaging of other specified body structures; M51.26 Other intervertebral disc displacement, lumbar region; M47.896 Other spondylosis, lumbar region; M47.897 Other spondylosis, lumbosacral region; M43.8X6 Other specified deforming dorsopathies, lumbar region; M43.8X4 Other specified deforming dorsopathies, thoracic region; M40.294 Other kyphosis, thoracic region; N28.1 Cyst of kidney, acquired; M47.894 Other spondylosis, thoracic region
CPT/HCPCS: 72157; 72158; A9577

== ENCOUNTER → 2024-10-15 15:34 | Outpatient (BNVA) | payer SELFPAY | PROVIDERS: PCP Family Medicine; Visit Provider Orthopaedic Surgery | DX: M54.9 Dorsalgia, unspecified (principal) | CPT/HCPCS: 72110 ==

== ENCOUNTER 2024-10-26 09:56 | Emergency (ER) | payer MEDICAID, SELFPAY ==
[2024-10-26 09:59] VITALS: BP 133/74; PULSE 73; RESP 18; TEMP 36.7; O2SAT 97; BMI 43.5
--- NOTE | 2024-10-26 10:13 | W.ED.HA ---
HPI - Headache General: Chief Complaint: Headache Stated Complaint: headache Time Seen by Provider: 10/26/24 09:57 Source: patient and EMS Mode of arrival: EMS Limitations: no limitations History of Present Illness: 39-year-old female states that she had a migraine headache she woke up with. She has long history of migraines states this feels the same as her previous migraine she has photophobia and phonophobia along with vomiting. Rates her headache an 8 out of 10. She denies any fever denies this being the worst headache of her life. Associated symptoms: Reports nausea and vomiting; Deny chest pain, fever(s) or rash Related Data Home Medications ?Medication ?Instructions ?Recorded ?Confirmed multivitamin 1 tab PO QAM 09/20/19 10/26/24 diphenhydramine HCl 25 mg capsule 25 mg PO Q6H PRN Allergic Reaction 11/05/19 10/26/24 (Benadryl) hydrocodone 10 mg-acetaminophen 1 tab PO Q4H PRN Pain 11/22/20 10/26/24 325 mg tablet gabapentin 100 mg capsule 200 mg PO TID 04/20/22 10/26/24 butalbital 50 mg-acetaminophen 325 1 tab PO TID PRN migraine headache 06/15/23 10/26/24 mg tablet abatacept 125 mg/mL subcutaneous 125 mg SUBCUT Q7D 10/26/24 10/26/24 auto-injector (Orencia ClickJect) cholecalciferol (vitamin D3) 125 125 mcg PO DAILY 10/26/24 10/26/24 mcg (5,000 unit) tablet (Vitamin D3) clindamycin phosphate 1 % topical 1 applic topical BID PRN Skin 10/26/24 10/26/24 foam Irritation fluoxetine 20 mg capsule 60 mg PO QAM 10/26/24 10/26/24 lithium carbonate 600 mg capsule 600 mg PO QAM 10/26/24 10/26/24 ondansetron HCl 4 mg tablet 4 mg PO Q4H PRN Nausea And Vomiting 10/26/24 10/26/24 Previous Rx's ?Medication ?Instructions ?Recorded ropinirole 0.25 mg tablet 0.25 mg PO BID #60 tabs 04/26/21 prednisone 2.5 mg tablet 5 mg (2 x 2.5 mg) PO DAILY #60 tabs 07/25/24 hydroxyzine pamoate 50 mg capsule 50 mg PO DAILY PRN anxiety #90 caps 10/07/24 lamotrigine 100 mg tablet 100 mg PO BEDTIME #90 tabs 10/07/24 (Lamictal) prednisone 20 mg tablet See Rx Instructions .Route 10/17/24 .COMPLEX #30 tabs tizanidine 4 mg capsule 8 mg (2 x 4 mg) PO TID muscle 10/21/24 spasticity #90 caps Allergies Allergy/AdvReac Type Severity Reaction Status Date / Time albuterol (From ProAir HFA) Allergy Severe Difficulty Verified 10/09/24 11:25 breathing citric acid Allergy Severe migraine, Verified 10/09/24 11:25 swelling influenza A (H1N1) virus Allergy Severe ADR-Migrain Verified 10/09/24 11:25 vaccine m-olamide-split 2008 e (From influenza A (H1N1)) ixekizumab (From Taltz Allergy Severe seizures Verified 10/09/24 11:25 Autoinjector) and rash sodium benzoate Allergy Severe Swelling, Verified 10/09/24 11:25 migraine sodium lauryl sulfate Allergy Severe difficulty Verified 10/09/24 11:25 breathing, swelling and migrane sulfamethoxazole (From Allergy Severe Swelling Verified 10/09/24 11:25 Bactrim) trimethoprim (From Bactrim) Allergy Severe Swelling Verified 10/09/24 11:25 topiramate (From Topamax) Allergy Intermediate Muscle Verified 10/09/24 11:25 spasm [id number] Antimigraine Allergy head ache, Verified 10/09/24 11:25 Agents swelling of limbs leflunomide AdvReac Severe Daily Verified 10/09/24 11:25 migraines with trip to ER doxycycline AdvReac Intermediate migraine Verified 10/09/24 11:25 metaxalone (From Skelaxin) AdvReac Intermediate Migraines Verified 10/09/24 11:25 methotrexate AdvReac Intermediate ached bad Verified 10/09/24 11:25 all over joints and muscles nicotine (From Nicorette) AdvReac blisters Verified 10/09/24 11:25 in mouth doxycycline hyclate Allergy Severe ADR-Migrain Uncoded 10/09/24 11:25 e citric acid AdvReac Intermediate migraine Uncoded 10/09/24 11:25 sodiumneural sulfate AdvReac Intermediate migraines Uncoded 10/09/24 11:25 and vomiting tryptins AdvReac migraines Uncoded 10/09/24 11:25 and vomiting Review of Systems Const: Denies: fever(s), chills, body aches or change in appetite ENMT: Denies: throat pain or dental pain Card: Denies: chest pain Resp: Denies: dyspnea GI: Reports: nausea and vomiting; Denies: abdominal pain or diarrhea Musc: Denies: neck pain or back pain Skin/Breast: Denies: rash Neuro: Reports: headache(s) PFSH ED PFSH: Medical History Cigarette nicotine dependence Hidradenitis suppurativa Psychiatric care Paresthesia Immunization counseling High risk medication use Leukocytosis, unspecified Polyarticular psoriatic arthritis Chronic back pain Long-term use of high-risk medication - Long-term narcotic use--currently on hydrocodone 7.5 mg taking 4-5 tablets per day. She is currently working with pain clinic to reduce her narcotic use. Continue management with pain clinic. Mast cell disease Plaque psoriasis Migraines Dx: Mast-cell related migraine headaches per patient. Treated with Benadryl and Zofran. Panic disorder Bipolar II disorder Dx in 2005. 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 Family/Other Hypertension Paternal aunt, maternal uncle Stroke Paternal aunt, Maternal uncles x 2. 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 Leisure activites: reading and other Leisure activities details: Dante, Gardening Sexually active: No Do you think of yourself as: Straight/Heterosexual Current gender identity: Female Chloe/Mormonism: Gnosticism Special chloe needs: No Agree to transfusion: Yes Physical Exam Const: COMMON NORMALS: no acute distress, patient oriented x3 and healthy appearing HENMT: COMMON NORMALS: normocephalic and atraumatic HEAD & SCALP: normocephalic and atraumatic Neck/C-Spine: COMMON NORMALS: full ROM, supple and no meningeal signs Chest: COMMONS NORMALS: normal inspection of the chest Resp: COMMON NORMALS: normal respiratory effort, No retractions, No use of accessory muscles and clear to auscultation bilaterally AUSCULTATION: clear to auscultation bilaterally Cardio: COMMON NORMALS: regular rate, regular rhythm and No murmurs present (Cardio) RATE: regular rate RHYTHM: regular rhythm Extremity: COMMON NORMALS: normal to inspection and full ROM Neuro: COMMON NORMALS: patient oriented x3, moves all extremities and no focal motor deficits MENINGEAL SIGNS: Yes no meningeal signs Psych: COMMON NORMALS: mental status grossly normal, Normal thought process present and cooperative THOUGHT PROCESS: Normal thought process present Skin: COMMON NORMALS: no rashes or lesions noted and no wounds GENERAL SKIN EXAM: no rashes or lesions noted Course Vital Signs: Vital signs: Vital Signs Temperature 98.1 F 10/26/24 09:59 Pulse Rate 73 10/26/24 09:59 Respiratory Rate 18 10/26/24 09:59 Blood Pressure 133/74 10/26/24 09:59 Pulse Oximetry 97 10/26/24 09:59 Oxygen Delivery Me thod Room Air 10/26/24 09:59 MDM - Headache Medical Decision Making Patient presents here with a migraine headache his headache is resolved here she has no signs of meningitis subarachnoid hemorrhage she is stable for discharge follow-up with PCP return if worsening. Medical Records I reviewed the patient's medical records. No radiology studies performed this visit Discharge Plan Discharge Patient Disposition: Home Clinical Impression: Headache Condition: Stable Prescriptions: No Action multivitamin Tablet 1 tab PO QAM gabapentin 100 mg capsule 200 mg PO TID diphenhydramine HCl [Benadryl] 25 mg capsule 25 mg PO Q6H PRN (Reason: Allergic Reaction) ropinirole 0.25 mg tablet 0.25 mg PO BID Qty: 60 3RF butalbital-acetaminophen 50-325 mg tablet 1 tab PO TID PRN (Reason: migraine headache) prednisone 2.5 mg tablet 5 mg PO DAILY Qty: 60 5RF hydroxyzine pamoate 50 mg capsule 50 mg PO DAILY PRN (Reason: anxiety) Qty: 90 2RF lamotrigine [Lamictal] 100 mg tablet 100 mg PO BEDTIME Qty: 90 2RF prednisone 20 mg tablet See Rx Instructions .ROUTE .COMPLEX Qty: 30 1RF Dose Instruction: TAKE 1 TABLET BY MOUTH EVERY DAY FOR 5-7 DAYS NEEDED FOR JOINT PAIN FLARE Rx Instructions: TAKE 1 TABLET BY MOUTH EVERY DAY FOR 5-7 DAYS NEEDED FOR JOINT PAIN FLARE. tizanidine 4 mg capsule 8 mg PO TID Qty: 90 4RF hydrocodone-acetaminophen 10-325 mg Tablet 1 tab PO Q4H PRN (Reason: Pain) cholecalciferol (vitamin D3) [Vitamin D3] 125 mcg (5,000 unit) Tablet 125 mcg PO DAILY ondansetron HCl 4 mg tablet 4 mg PO Q4H PRN (Reason: Nausea And Vomiting) lithium carbonate 600 mg capsule 600 mg PO QAM fluoxetine 20 mg capsule 60 mg PO QAM clindamycin phosphate 1 % foam 1 applic topical BID PRN (Reason: Skin Irritation) Orencia ClickJect 125 mg/mL auto-injector 125 mg SUBCUT Q7D Rx Instructions: Tuesdays Discharge Orders: Discharge ED (Routine); Ordered 10/26/24 Ordered By: Amaury Moura Referrals: Jason Brown MD [Primary Care Provider] - 4-7 days Discharge Diet: Advance as tolerated Discharge Activity: Resume usual activity Patient Instructions: Migraine Headache (ED) Print Language: Vietnamese Coding Level of Care Code ED Dross Puller for Terry Pedroza
[2024-10-26] MEDS: sodium chloride 0.9% 1,000 ML 999 ML IV (10:46)
[2024-10-26] MEDS: ketorolac 30 mg/mL INJ 15 MG IVP (10:47)
[2024-10-26] MEDS: metoclopramide 5 mg/mL SDV 2 mL 10 MG IVP (10:47)
[2024-10-26] MEDS: diphenhydrAMINE 50 mg/mL SDV 1mL IVP (10:47)
[2024-10-26 11:31] VITALS: PULSE 69; O2SAT 91
== END 2024-10-26 11:36 | disposition home or self-care (01) ==
PROVIDERS: Emergency Provider Emergency Medicine; PCP Family Medicine
DX: R51.9 Headache, unspecified (principal); F17.210 Nicotine dependence, cigarettes, uncomplicated
CPT/HCPCS: 96374; 96375; 99284; J1200; J1885; J2765; J7030

== ENCOUNTER → 2024-11-19 11:14 | Outpatient (BNVA) | payer MEDICAID, SELFPAY | PROVIDERS: PCP Family Medicine; Referring Provider Psychiatry & Neurology Neurology; Visit Provider Psychiatry & Neurology Neurology | DX: R20.0 Anesthesia of skin (principal); R20.2 Paresthesia of skin; M54.2 Cervicalgia; M54.41 Lumbago with sciatica, right side; M54.42 Lumbago with sciatica, left side; G89.29 Other chronic pain; G62.9 Polyneuropathy, unspecified | CPT/HCPCS: 95912 ==

== ENCOUNTER → 2024-11-21 14:50 | Outpatient (BNVA) | payer MEDICAID, SELFPAY | PROVIDERS: PCP Family Medicine; Visit Provider Psychiatry & Neurology Neurology | DX: R56.9 Unspecified convulsions (principal) | CPT/HCPCS: 95813 ==

== ENCOUNTER → 2024-12-06 12:49 | Outpatient (BNVA) | payer OTHER, SELFPAY | PROVIDERS: PCP Family Medicine; Visit Provider Nurse Practitioner Psychiatric/Mental Health | DX: Z79.899 Other long term (current) drug therapy (principal) | CPT/HCPCS: 80053; 80178; 82306 ==

== ENCOUNTER → 2024-12-16 11:15 | Outpatient (BNVA) | payer MEDICAID, SELFPAY | PROVIDERS: PCP Family Medicine; Visit Provider Orthopaedic Surgery | DX: G56.03 Carpal tunnel syndrome, bilateral upper limbs (principal); Z01.818 Encounter for other preprocedural examination | CPT/HCPCS: 99204 ==

== ENCOUNTER → 2024-12-17 12:48 | Outpatient (BNVA) | payer MEDICAID, SELFPAY | PROVIDERS: PCP Family Medicine; Referring Provider Psychiatry & Neurology Neurology; Visit Provider Psychiatry & Neurology Neurology | DX: R20.0 Anesthesia of skin (principal); R20.2 Paresthesia of skin; G25.81 Restless legs syndrome; M54.41 Lumbago with sciatica, right side; M54.42 Lumbago with sciatica, left side; G89.29 Other chronic pain; M54.2 Cervicalgia | CPT/HCPCS: 95885; 95910 ==

== ENCOUNTER → 2025-01-14 14:50 | Outpatient (BNVA) | payer MEDICAID, SELFPAY | PROVIDERS: PCP Family Medicine; Visit Provider Psychiatry & Neurology Neurology | DX: R55 Syncope and collapse (principal); G51.8 Other disorders of facial nerve; H57.10 Ocular pain, unspecified eye; M54.2 Cervicalgia; M54.41 Lumbago with sciatica, right side; M54.42 Lumbago with sciatica, left side; G89.29 Other chronic pain; R20.0 Anesthesia of skin; R20.2 Paresthesia of skin; G43.711 Chronic migraine without aura, intractable, with status migrainosus; M79.7 Fibromyalgia; G62.9 Polyneuropathy, unspecified; R25.1 Tremor, unspecified; R25.2 Cramp and spasm | CPT/HCPCS: 99212 ==

== ENCOUNTER 2025-02-28 08:34 | Outpatient (CLI) | payer MEDICAID, SELFPAY ==
--- NOTE | 2025-02-28 08:30 | FL_ITS ---
WS: [id number] LUMBAR PUNCTURE UNDER FLUOROSCOPY: OBTAIN CSF FOR ANALYSIS HISTORY: R20.2 - Paresthesia of skin COMPARISON: None available. FLUOROSCOPY TIME: 1min [id number] # of spot films: 1 Procedure, complications, and risk and benefits explained to the patient. Consent was obtained. Recent laboratory work and medication are reviewed prior to procedure. Skin over the lumbar is cleansed with ChloraPrep and anesthetized with 1% buffered lidocaine. Access into the thecal sac is achieved. CSF is removed in a sterile manner and placed in the sterile tubes. Approximately 14 ml is removed without difficulty. LP opening pressure: 16 cm H2O. Similar LP closing pressure. No complications are encountered. CSF this into the laboratory for analysis as requested. FL/FL guided lumbarpunc dx* [id number] IMPRESSION: Uncomplicated lumbar puncture for CSF. Normal opening pressure, 16 cm H2O.
[2025-02-28 10:09] LABS: Mononuclear WBC CSF % 100 % (50-90); Polynuclear WBC CSF % 0 % (0-10); Red Blood Cell CSF 0 10^3/uL (0-0); White Blood Cell CSF 1 /uL (0-5)
[2025-02-28 10:21] LABS: Appearance CSF CLEAR (CLEAR); Color CSF COLORLESS (COLORLESS); PATH Referral YES
[2025-02-28 10:25] LABS: Glucose CSF 67 mg/dL (40-70); Total Protein CSF 53 mg/dL (15-45)
[2025-03-02 15:45] LABS: Epstein Barr Virus Qual PCR Not Detected (Not Detected); Epstein Barr Virus Source Results Below
[2025-03-03 08:00] LABS: Cytomegalovirus DNA,QL RT PCR Not Detected (Not Detected); Cytomegalovirus Source Results Below
[2025-03-03 16:25] LABS: HIV RNA (CPY/ML) NOT DETECTED (NOT DETECTED); HIV RNA LOG NOT DETECTED copies/mL (NOT DETECTED)
[2025-03-04 14:04] LABS: Angiotensin Convert Enzy CSF 7 U/L (<=15)
[2025-03-04 14:25] LABS: Immunoglobulin G, CSF 2.7 mg/dL (0.8-7.7)
[2025-03-04 19:19] LABS: Toxoplasma Gondii IgG CSF <0.90; Toxoplasma Gondii IgM CSF <0.80
[2025-03-04 22:19] LABS: JC Polyoma Virus DNA PCR CSF NOT DETECTED; JC Polyoma Virus DNA PCR CSF NOT DETECTED Log IU/mL
[2025-03-05 00:06] LABS: VDRL on CSF NON-REACTIVE
[2025-03-06 19:44] LABS: Poliovirus Type 3 Titer >1:128
[2025-03-07 15:55] LABS: West Nile Virus AB (IGG) <1.30 index; West Nile Virus AB (IGM) <0.90 index
[2025-03-07 22:25] LABS: GAD 65 IA-2 Antibody <5.4 U/mL (<5.4); GAD Insulin Autoantibody <0.4 U/mL (<0.4); Glutamic Acid Decarboxylase 65 <5 IU/mL (<5); Zinc Transporter 8 AB <10 U/mL (<15)
== END 2025-02-28 08:35 | disposition home or self-care (01) ==
PROVIDERS: PCP Family Medicine; Visit Provider Psychiatry & Neurology Neurology
DX: R20.2 Paresthesia of skin (principal); G62.9 Polyneuropathy, unspecified; R20.0 Anesthesia of skin; G51.8 Other disorders of facial nerve; R25.1 Tremor, unspecified; R55 Syncope and collapse; H57.10 Ocular pain, unspecified eye; M54.2 Cervicalgia; M54.41 Lumbago with sciatica, right side; M54.42 Lumbago with sciatica, left side; G89.29 Other chronic pain; G43.711 Chronic migraine without aura, intractable, with status migrainosus; M79.7 Fibromyalgia; R25.2 Cramp and spasm
CPT/HCPCS: 36415; 62328; 80503; 82040; 82042; 82164; 82784; 82945; 83520; 83916; 84157; 86255; 86337; 86341; 86382; 86403; 86592; 86777; 86778; 86788; 86789; 87015; 87070; 87075; 87116; 87205; 87206; 87327; 87496; 87536; 87798; 87799; 87801; 89050

== ENCOUNTER → 2025-03-18 15:28 | Outpatient (BNVA) | payer MEDICAID, SELFPAY | PROVIDERS: PCP Family Medicine; Visit Provider Psychiatry & Neurology Neurology | DX: R20.2 Paresthesia of skin (principal); R56.9 Unspecified convulsions; G62.9 Polyneuropathy, unspecified; R20.0 Anesthesia of skin; R25.2 Cramp and spasm; M54.2 Cervicalgia; M54.41 Lumbago with sciatica, right side; M54.42 Lumbago with sciatica, left side; G89.29 Other chronic pain; H57.10 Ocular pain, unspecified eye; G51.8 Other disorders of facial nerve; R25.1 Tremor, unspecified | CPT/HCPCS: 36415; 82390; 82525; 86644; 86695; 86696; 86777; 87798; 99212 ==

== ENCOUNTER → 2025-07-16 15:35 | Outpatient (BNVA) | payer OTHER, SELFPAY | PROVIDERS: PCP Family Medicine; Visit Provider Nurse Practitioner Psychiatric/Mental Health | DX: Z79.899 Other long term (current) drug therapy (principal) | CPT/HCPCS: 80053; 80061; 80178; 82306; 83036 ==